=== PATIENT | female | born 1940 | race Two or more races ===

== ENCOUNTER 2016-10-10 12:59 | Inpatient (IN) | payer MEDICARE, MEDICAID ==
[~2016-10-10] VITALS: Ht 165.1 cm; Wt 45.4 kg
[~2016-10-10 12:59] MED LIST: ARMOUR THYROID30 MG ORAL; ARTIFICIAL TEAR15 ML BOTH EYES; ASPIRIN EC81 MG ORAL; ATIVAN1 MG ORAL; BISAC-EVAC10 MG RC; COLACE100 MG ORAL; CYCLOBENZAPRINE10 MG ORAL; FLEET ENEMA133 ML RECTAL; LACTULOSE20 GM/301 ORAL; MILK OF MA400 MG/51 ORAL; MIRALAX17 G2 ORAL; NEURONTIN800 MG ORAL; NITROGLYCERIN0.4 MG SL; OXYCODONE HCL5 M2 ORAL; PROZAC40 MG ORAL; SENNA8.6 M3 PO; SIMETHICONE80 MG ORAL; SOMA350 MG PO; VOLTAREN100 G1 TP
--- NOTE | 2016-10-10 14:54 | Diagnostic Imaging Report ---
Indication: Abdominal pain Technique: Supine view of the abdomen Comparison: Radiocommunications Technician image from abdomen CT dated 09/17/2014 Findings: There is a prominent gas-filled small bowel loop in the left upper quadrant. No dilated small or large bowel is demonstrated. Stool is seen throughout the colon. No unusual masses or calcifications. Impression: Left upper quadrant prominent small bowel loop, could represent area of focal ileus. Early small bowel obstruction not completely excludable but less likely
[2016-10-10 15:28] LABS: EOSINOPHILS % (AUTO) 0.2 % (0.0-3.0); LYMPHOCYTES % (AUTO) 29.3 % (20.0-45.0); MEAN CORPUSCULAR HEMOGLOBIN 33.9 PG (27.0-31.0); MEAN CORPUSCULAR HGB CONC 33.1 G/DL (32.0-36.0); MEAN CORPUSCULAR VOLUME 103 FL (80-99); MEAN PLATELET VOLUME 6.8 FL (6.5-10.1); MONOCYTES % (AUTO) 5.9 % (1.0-10.0); NEUTROPHILS % (AUTO) 63.7 % (45.0-75.0); PLATELET COUNT 269 K/UL (150-450); RED BLOOD COUNT 4.03 M/UL (4.20-5.40); WHITE BLOOD COUNT 4.2 K/UL (4.8-10.8)
[2016-10-10 15:36] LABS: APPEARANCE,URINE CLEAR; KETONES,URINE 1+ (NEGATIVE); LEUKOCYTE ESTERASE ,URINE 2+ (NEGATIVE); NITRITE,URINE NEGATIVE (NEGATIVE); PH,URINE 5 (4.5-8.0); PROTEIN,URINE 1+ (NEGATIVE); UROBILINOGEN,URINE 1 MG/DL (0.0-1.0)
[2016-10-10 15:40] LABS: PROTHROMBIN TIME 10.1 SEC (9.30-11.50)
[2016-10-10 15:44] LABS: ALANINE AMINOTRANSFERASE 14 U/L (3-33); ALBUMIN/GLOBULIN RATIO 1.1 (1.0-2.7); ANION GAP 11 (5-15); ASPARTATE AMINO TRANSFERASE 20 U/L (5-40); CALCIUM 9.1 mg/dL (8.6-10.2); CARBON DIOXIDE 26 mEQ/L (20-30); CHLORIDE 100 mEQ/L (98-107); CREATININE 0.8 mg/dL (0.5-0.9); HEMOLYSIS 7; LIPASE 24 U/L (< 60); SODIUM 137 mEQ/L (135-145); TOTAL PROTEIN 7.7 g/dL (6.6-8.7)
[2016-10-10 15:45] LABS: RBC,URINE 0-2 /HPF (0 - 2)
[2016-10-10 15:46] LABS: BACTERIA,URINE FEW /HPF; MUCUS,URINE MANY /LPF (NONE/OCC); SQUAMOUS EPITHELIAL CELL,UR FEW /LPF (NONE/OCC)
[2016-10-10] MEDS ORDERED: Morphine Sulfate 4mg/ml Inj IVP ONE (16:00)
[2016-10-10 17:11] VITALS: BP 113/62
[2016-10-10] MEDS ORDERED: Morphine Sulfate 2mg/ml Inj IVP PRN ×2 (18:00→18:15)
--- NOTE | 2016-10-10 18:04 | Emergency Room Report ---
History of Present Illness General Chief Complaint: Abdominal Pain Source: Patient Present Illness [facility] The patient is a 76-year-old female with a history of SBO, C. difficile, umbilical hernia, and bilateral inguinal hernias presenting for abdominal pain and diarrhea for the past 3 weeks. Symptoms have been on and off with no known provoking factors. Pain is 8/10 dull ache to the mid lower abdomen and does not radiate. The patient states that she had a colonoscopy one month prior which she does not know the results of. She denies other symptoms including nausea, vomiting, fever, chills, back pain, melena, hematochezia Allergies: Coded Allergies: ERYTHROMYCIN BASE (Unverified Allergy, Unknown, 09/17/14) Patient History Past Medical History: see triage record Pertinent Family History: none Last Menstrual Period: na Reviewed Nursing Documentation: PMH: Agreed, PSxH: Agreed Nursing Documentation-PMH Past Medical History: No History, Except For Hx Cancer: No Hx Gastrointestinal Problems: Yes - IBS Hx Neurological Problems: Yes Review of Systems All Other Systems: negative except mentioned in HPI Physical Exam Vital Signs Date Time Temp Pulse Resp B/P Pulse Ox O2 Delivery O2 Flow Rate FiO2 10/10/16 13:13 97.9 107 18 112/76 98 Room Air Sp02 EP Interpretation: reviewed, normal General Appearance: no apparent distress, alert, GCS 15, non-toxic Head: normocephalic, atraumatic Eyes: bilateral eye PERRL, bilateral eye normal inspection ENT: hearing grossly normal, normal pharynx, no angioedema, normal voice Neck: full range of motion, supple/symm/no masses Respiratory: chest non-tender, lungs clear, normal breath sounds, speaking full sentences Gastrointestinal: normal bowel sounds, soft, no guarding, no rebound, tenderness - TTP over the LLQ and suprapubic regions Genitourinary: normal inspection, no CVA tenderness Musculoskeletal: back normal, gait/station normal, normal range of motion, non- tender Neurologic: alert, oriented x3, responsive, motor strength/tone normal, sensory intact, speech normal Psychiatric: judgement/insight normal, memory normal, mood/affect normal, no suicidal/homicidal ideation Skin: normal color, no rash, warm/dry, well hydrated Medical Decision Making PA Attestation Dr. Hamilton is my supervising physician. Patient management was discussed with my supervising physician Diagnostic Impression: Primary Impression: Abdominal pain Qualified Codes: R10.9 - Unspecified abdominal pain ER Course The patient is a 76-year-old female presenting with abdominal pain Differential diagnoses considered include but not limited to gastritis, pancreatitis, appendicitis, UTI, diverticulitis, SBO, incarcerated hernia, among others Physical exam: Afebrile. No apparent distress There is tenderness to palpation over the suprapubic and left lower quadrant regions. Normal bowel sounds. No guarding. All lab work is unremarkable Abdominal x-ray shows signs consistent with ileus and possible SBO per radiologist The patient is given IV pain medications with improvement of pain. She will be admitted to telemetry unit due to past medical history and tachycardia. Dr. Hamilton has discussed case with admitting physician. Laboratory Tests Test 10/10/16 14:32 White Blood Count 4.2 K/UL (4.8-10.8) L Red Blood Count 4.03 M/UL (4.20-5.40) L Hemoglobin 13.7 G/DL (12.0-16.0) Hematocrit 41.3 % (37.0-47.0) Mean Corpuscular Volume 103 FL (80-99) H Mean Corpuscular Hemoglobin 33.9 PG (27.0-31.0) H Mean Corpuscular Hemoglobin Concent 33.1 G/DL (32.0-36.0) Red Cell Distribution Width 11.0 % (11.6-14.8) L Platelet Count 269 K/UL (150-450) Mean Platelet Volume 6.8 FL (6.5-10.1) Neutrophils (%) (Auto) 63.7 % (45.0-75.0) Lymphocytes (%) (Auto) 29.3 % (20.0-45.0) Monocytes (%) (Auto) 5.9 % (1.0-10.0) Eosinophils (%) (Auto) 0.2 % (0.0-3.0) Basophils (%) (Auto) 1.0 % (0.0-2.0) Prothrombin Time 10.1 SEC (9.30-11.50) Prothrombin Time INR 1.0 (0.9-1.1) PTT 26 SEC (23-33) Urine Color Yellow Urine Appearance Clear Urine pH 5 (4.5-8.0) Urine Specific [place] 1.020 (1.005-1.035) Urine Protein 1+ (NEGATIVE) H Urine Glucose (UA) Negative (NEGATIVE) Urine Ketones 1+ (NEGATIVE) H Urine Occult Blood Negative (NEGATIVE) Urine Nitrite Negative (NEGATIVE) Urine Bilirubin Negative (NEGATIVE) Urine Urobilinogen 1 MG/DL (0.0-1.0) H Urine Leukocyte Esterase 2+ (NEGATIVE) H Urine RBC 0-2 /HPF (0 - 2) Urine WBC 2-4 /HPF (0 - 2) Urine Squamous Epithelial Cells Few /LPF (NONE/OCC) Urine Bacteria Few /HPF (NONE) Urine Mucus Many /LPF (NONE/OCC) H Sodium Level 137 mEQ/L (135-145) Potassium Level 4.0 mEQ/L (3.4-4.9) Chloride Level 100 mEQ/L (98-107) Carbon Dioxide Level 26 mEQ/L (20-30) Anion Gap 11 (5-15) Blood Urea Nitrogen 14 mg/dL (7-23) Creatinine 0.8 mg/dL (0.5-0.9) Estimate Glomerular Filtration Rate mL/min (>60) Glucose Level 103 mg/dL (74-106) Calcium Level 9.1 mg/dL (8.6-10.2) Total Bilirubin 0.3 mg/dL (0.0-1.2) Aspartate Amino Transferase (AST) 20 U/L (5-40) Alanine Aminotransferase (ALT) 14 U/L (3-33) Alkaline Phosphatase 50 U/L (35-104) Total Protein 7.7 g/dL (6.6-8.7) Albumin 4.1 g/dL (3.5-5.2) Globulin 3.6 g/dL Albumin/Globulin Ratio 1.1 (1.0-2.7) Lipase 24 U/L (< 60) Lab Results Impression All unremarkable EKG Diagnostic Results EP Interpretation: No acute findings Rate: normal - 66 Rhythm: NSR ST Segments: no acute changes ASA given to the pt in ED: No PA Scribe Text EKG was reviewed and read with my supervising physician. No acute ST segment changes are seen. Normal rate and rhythm. No acute changes. Last Vital Signs Date Time Temp Pulse Resp B/P Pulse Ox O2 Delivery O2 Flow Rate FiO2 10/10/16 17:11 98.2 68 18 113/62 97 Room Air Status: improved Disposition: ADMITTED INPATIENT Condition: Stable Referrals: Balbir Truong MD (PCP) DOMINIK SHELDON Oct 10, 2016 18:04
--- NOTE | 2016-10-10 18:08 | Emergency Room Report ---
History of Present Illness General Chief Complaint: Abdominal Pain Source: Patient Present Illness HPI Patient's 76-year-old female who presented after increased abdominal pain. Patient reported having pain primarily to the left lower abdomen. She reported having intermittent worsening pain. The patient not been having vomiting. She reported intermittent diarrhea. Patient was noted to have prior history of end- stage renal disease Allergies: Coded Allergies: ERYTHROMYCIN BASE (Unverified Allergy, Unknown, 09/17/14) Patient History Past Medical History: see triage record Last Menstrual Period: na Reviewed Nursing Documentation: PMH: Agreed, PSxH: Agreed Nursing Documentation-PMH Past Medical History: No History, Except For Hx Cancer: No Hx Gastrointestinal Problems: Yes - IBS Hx Neurological Problems: Yes Review of Systems All Other Systems: negative except mentioned in HPI Physical Exam Vital Signs Date Time Temp Pulse Resp B/P Pulse Ox O2 Delivery O2 Flow Rate FiO2 10/10/16 13:13 97.9 107 18 112/76 98 Room Air Sp02 EP Interpretation: reviewed, normal General Appearance: normal inspection, alert, GCS 15, mild distress Head: atraumatic ENT: normal ENT inspection, hearing grossly normal, normal voice Neck: normal inspection, full range of motion, supple, no bony tend Respiratory: normal inspection, lungs clear, normal breath sounds, no respiratory distress, no retraction, no wheezing Cardiovascular #1: regular rate, rhythm, no edema Gastrointestinal: normal inspection, normal bowel sounds, non tender, soft, no guarding, hernia - nontender Genitourinary: no CVA tenderness Musculoskeletal: normal inspection, back normal, normal range of motion Neurologic: normal inspection, alert, oriented x3, responsive, brilliandeer lopper III-XII nml as tested, speech normal Psychiatric: normal inspection, judgement/insight normal, mood/affect normal Skin: normal inspection, normal color, no rash Medical Decision Making Diagnostic Impression: Primary Impression: Abdominal pain Additional Impression: Ileus ER Course Patient presented for abdominal pain. Differential diagnoses included ischemic bowel, appendicitis, perforated viscus, abdominal aortic aneurysm, inferior myocardial infarction, viral gastroenteritis Because of complexity of patient's case laboratory testing and imaging studies were ordered. Acute abdominal series interpreted by radiology showed small bowel ileus versus early obstruction. The patient was noted to have a mild ileus on imaging. I laboratory studies showed mild decrease in white blood count. Prior CT imaging was performed in 2014 showed a umbilical hernia as well as bilateral inguinal hernias. Dr. Balbir Truong was contacted for inpatient management due to primary care physician Labs Test 10/10/16 14:32 White Blood Count 4.2 K/UL (4.8-10.8) Red Blood Count 4.03 M/UL (4.20-5.40) Hemoglobin 13.7 G/DL (12.0-16.0) Hematocrit 41.3 % (37.0-47.0) Mean Corpuscular Volume 103 FL (80-99) Mean Corpuscular Hemoglobin 33.9 PG (27.0-31.0) Mean Corpuscular Hemoglobin Concent 33.1 G/DL (32.0-36.0) Red Cell Distribution Width 11.0 % (11.6-14.8) Platelet Count 269 K/UL (150-450) Mean Platelet Volume 6.8 FL (6.5-10.1) Neutrophils (%) (Auto) 63.7 % (45.0-75.0) Lymphocytes (%) (Auto) 29.3 % (20.0-45.0) Monocytes (%) (Auto) 5.9 % (1.0-10.0) Eosinophils (%) (Auto) 0.2 % (0.0-3.0) Basophils (%) (Auto) 1.0 % (0.0-2.0) Prothrombin Time 10.1 SEC (9.30-11.50) Prothromb Time International Ratio 1.0 (0.9-1.1) Activated Partial Thromboplast Time 26 SEC (23-33) Urine Color Yellow Urine Appearance Clear Urine pH 5 (4.5-8.0) Urine Specific [place] 1.020 (1.005-1.035) Urine Protein 1+ (NEGATIVE) Urine Glucose (UA) Negative (NEGATIVE) Urine Ketones 1+ (NEGATIVE) Urine Occult Blood Negative (NEGATIVE) Urine Nitrite Negative (NEGATIVE) Urine Bilirubin Negative (NEGATIVE) Urine Urobilinogen 1 MG/DL (0.0-1.0) Urine Leukocyte Esterase 2+ (NEGATIVE) Urine RBC 0-2 /HPF (0 - 2) Urine WBC 2-4 /HPF (0 - 2) Urine Squamous Epithelial Cells Few /LPF (NONE/OCC) Urine Bacteria Few /HPF (NONE) Urine Mucus Many /LPF (NONE/OCC) Sodium Level 137 mEQ/L (135-145) Potassium Level 4.0 mEQ/L (3.4-4.9) Chloride Level 100 mEQ/L (98-107) Carbon Dioxide Level 26 mEQ/L (20-30) Anion Gap 11 (5-15) Blood Urea Nitrogen 14 mg/dL (7-23) Creatinine 0.8 mg/dL (0.5-0.9) Estimat Glomerular Filtration Rate mL/min (>60) Glucose Level 103 mg/dL (74-106) Calcium Level 9.1 mg/dL (8.6-10.2) Total Bilirubin 0.3 mg/dL (0.0-1.2) Aspartate Amino Transf (AST/SGOT) 20 U/L (5-40) Alanine Aminotransferase (ALT/SGPT) 14 U/L (3-33) Alkaline Phosphatase 50 U/L (35-104) Total Protein 7.7 g/dL (6.6-8.7) Albumin 4.1 g/dL (3.5-5.2) Globulin 3.6 g/dL Albumin/Globulin Ratio 1.1 (1.0-2.7) Lipase 24 U/L (< 60) Last Vital Signs Date Time Temp Pulse Resp B/P Pulse Ox O2 Delivery O2 Flow Rate FiO2 10/10/16 17:11 98.2 68 18 113/62 97 Room Air Status: unchanged Disposition: ADMITTED INPATIENT Condition: Serious Referrals: Balbir Truong MD (PCP) Eliseo Hamilton Oct 10, 2016 18:08
--- NOTE | 2016-10-10 18:11 | Consultation ---
History of Present Illness General Chief Complaint: Abdominal Pain Present Illness Allergies: Coded Allergies: ERYTHROMYCIN BASE (Unverified Allergy, Unknown, 09/17/14) Medication History Scheduled Aspirin Ec* (Aspirin Ec*), 81 MG ORAL DAILY, (Reported) Bisacodyl (Bisac-Evac), 10 MG RC EVERY OTHER DAY, (Reported) Docusate Sodium* (Colace*), 100 MG ORAL TWICE A DAY, (Reported) Fluoxetine Hcl* (Prozac*), 60 MG ORAL DAILY, (Reported) Gabapentin* (Neurontin*), 800 MG ORAL Q8H, (Reported) Polyethylene Glycol 3350* (Miralax*), 17 GM ORAL HS, (Reported) Sennosides (Senna), 8.6 MG PO BEDTIME, (Reported) Thyroid* ([place] Thyroid*), 30 MG ORAL DAILY, (Reported) Scheduled PRN Bisacodyl (Bisac-Evac), 10 MG RC for Constipation, (Reported) Carisoprodol* (Soma*), 350 MG PO TID PRN for For Pain, (Reported) Cyclobenzaprine Hcl* (Flexeril*), 10 MG ORAL THREE TIMES A DAY PRN for Moderate Pain (Pain Scale 4-6), (Reported) Dextran 70/Hypromellose (Artificial Tears Eye Drops*), 1 DROP BOTH EYES EVERY 3 HOURS PRN for Dry Eyes, (Reported) Diclofenac Sodium (Voltaren), 100 GM TP QID PRN for For Pain, (Reported) Lactulose (Lactulose*), 30 ML ORAL BID PRN for Constipation, (Reported) Lorazepam* (Ativan*), 1 MG ORAL BEDTIME PRN for For Anxiety, (Reported) Magnesium Hydroxide* (Milk Of Magnesia*), 30 ML ORAL DAILY PRN for Constipation, (Reported) Na Phos,M-B/Na Phos,Di-Ba* (Fleet Enema*), 133 ML RECTAL EVERY 72 HOURS PRN for Constipation, (Reported) Nitroglycerin (Nitroglycerin), 0.4 MG SL for Prn Chest Pain, (Reported) Oxycodone Hcl* (Oxycodone Hcl*), 5 MG ORAL Q6H PRN for For Pain, (Reported) Simethicone* (Simethicone*), 80 MG ORAL FOUR TIMES A DAY PRN for Abdominal cramps, (Reported) Patient History Healthcare decision maker Resuscitation status Advanced Directive on File Physical Exam Last 24 Hour Vital Signs Date Time Temp Pulse Resp B/P Pulse Ox O2 Delivery O2 Flow Rate FiO2 10/10/16 17:11 98.2 68 18 113/62 97 Room Air 10/10/16 13:13 97.9 107 18 112/76 98 Room Air Laboratory Tests Test 10/10/16 14:32 White Blood Count 4.2 K/UL (4.8-10.8) L Red Blood Count 4.03 M/UL (4.20-5.40) L Hemoglobin 13.7 G/DL (12.0-16.0) Hematocrit 41.3 % (37.0-47.0) Mean Corpuscular Volume 103 FL (80-99) H Mean Corpuscular Hemoglobin 33.9 PG (27.0-31.0) H Mean Corpuscular Hemoglobin Concent 33.1 G/DL (32.0-36.0) Red Cell Distribution Width 11.0 % (11.6-14.8) L Platelet Count 269 K/UL (150-450) Mean Platelet Volume 6.8 FL (6.5-10.1) Neutrophils (%) (Auto) 63.7 % (45.0-75.0) Lymphocytes (%) (Auto) 29.3 % (20.0-45.0) Monocytes (%) (Auto) 5.9 % (1.0-10.0) Eosinophils (%) (Auto) 0.2 % (0.0-3.0) Basophils (%) (Auto) 1.0 % (0.0-2.0) Prothrombin Time 10.1 SEC (9.30-11.50) Prothromb Time International Ratio 1.0 (0.9-1.1) Activated Partial Thromboplast Time 26 SEC (23-33) Urine Color Yellow Urine Appearance Clear Urine pH 5 (4.5-8.0) Urine Specific [place] 1.020 (1.005-1.035) Urine Protein 1+ (NEGATIVE) H Urine Glucose (UA) Negative (NEGATIVE) Urine Ketones 1+ (NEGATIVE) H Urine Occult Blood Negative (NEGATIVE) Urine Nitrite Negative (NEGATIVE) Urine Bilirubin Negative (NEGATIVE) Urine Urobilinogen 1 MG/DL (0.0-1.0) H Urine Leukocyte Esterase 2+ (NEGATIVE) H Urine RBC 0-2 /HPF (0 - 2) Urine WBC 2-4 /HPF (0 - 2) Urine Squamous Epithelial Cells Few /LPF (NONE/OCC) Urine Bacteria Few /HPF (NONE) Urine Mucus Many /LPF (NONE/OCC) H Sodium Level 137 mEQ/L (135-145) Potassium Level 4.0 mEQ/L (3.4-4.9) Chloride Level 100 mEQ/L (98-107) Carbon Dioxide Level 26 mEQ/L (20-30) Anion Gap 11 (5-15) Blood Urea Nitrogen 14 mg/dL (7-23) Creatinine 0.8 mg/dL (0.5-0.9) Estimat Glomerular Filtration Rate mL/min (>60) Glucose Level 103 mg/dL (74-106) Calcium Level 9.1 mg/dL (8.6-10.2) Total Bilirubin 0.3 mg/dL (0.0-1.2) Aspartate Amino Transf (AST/SGOT) 20 U/L (5-40) Alanine Aminotransferase (ALT/SGPT) 14 U/L (3-33) Alkaline Phosphatase 50 U/L (35-104) Total Protein 7.7 g/dL (6.6-8.7) Albumin 4.1 g/dL (3.5-5.2) Globulin 3.6 g/dL Albumin/Globulin Ratio 1.1 (1.0-2.7) Lipase 24 U/L (< 60) Height (Feet): 5 Height (Inches): 2.00 Weight (Pounds): 100 Medications Current Medications Medications (Trade) Dose Ordered Sig/Joy Route PRN Reason Start Time Stop Time Status Last Admin Dose Admin Acetaminophen (Tylenol) 650 mg PRN PRN ORAL For Pain 10/10/16 18:00 11/09/16 17:59 UNV Acetaminophen (Tylenol) 650 mg Q4H PRN ORAL fever 10/10/16 18:15 11/09/16 18:14 UNV Al Hydroxide/Mg Hydroxide (Mylanta II) 30 ml Q6H PRN ORAL dyspepsia 10/10/16 18:15 11/09/16 18:14 UNV Aspirin (Ecotrin) 81 mg DAILY ORAL 10/11/16 09:00 11/10/16 08:59 UNV Carisoprodol (Soma) 350 mg TID PRN ORAL For Pain 10/10/16 18:15 11/09/16 18:14 UNV Dextrose STAT PRN IV Hypoglycemia 10/10/16 18:15 11/09/16 18:14 UNV Dextrose/Sodium Chloride (D5 0.45% NS) 1,000 ml @ 75 mls/hr [id number] IV 10/10/16 17:40 11/09/16 17:39 UNV Diphenhydramine HCl (Benadryl) 25 mg Q6H PRN ORAL Itching/Pruritis 10/10/16 18:15 11/09/16 18:14 UNV Fluoxetine HCl (PROzac) 60 mg DAILY ORAL 10/11/16 09:00 11/10/16 08:59 UNV Gabapentin (Neurontin) 800 mg Q8H ORAL 10/10/16 18:15 11/09/16 18:14 UNV Heparin Sodium (Porcine) (Heparin 5000 units/ml) 5,000 units EVERY 12 HOURS SUBQ 10/10/16 21:00 11/09/16 20:59 UNV Lorazepam (Ativan) 1 mg BEDTIME PRN ORAL For Anxiety 10/10/16 18:15 10/17/16 18:14 UNV Morphine Sulfate (Morphine Sulfate) 2 mg EVERY 4 HOURS PRN IVP severe Pain (Pain Scale 7-10) 10/10/16 18:15 10/17/16 18:14 UNV Morphine Sulfate (Morphine Sulfate) 2 mg PRN PRN IVP For Pain 10/10/16 18:00 10/17/16 17:59 UNV Nitroglycerin (Ntg) 0.4 mg Q5M X 3 DOSES PRN SL Prn Chest Pain 10/10/16 18:15 11/09/16 18:14 UNV Ondansetron HCl (Zofran) 4 mg Q6H PRN IVP Nausea & Vomiting 10/10/16 18:15 11/09/16 18:14 UNV Pantoprazole (Protonix) 40 mg DAILY IVP 10/11/16 09:00 11/10/16 08:59 UNV Piperacillin Sod/ Tazobactam Sod/ Sodium Chloride (Zosyn/Sodium Chloride) 110 ml @ 27.5 mls/hr EVERY 8 HOURS IVPB 10/10/16 22:00 10/17/16 21:59 UNV Polyethylene Glycol (Miralax) 17 gm HSPRN PRN ORAL Constipation 10/10/16 18:15 11/09/16 18:14 UNV Temazepam (Restoril) 15 mg HSPRN PRN ORAL Insomnia 10/10/16 18:15 10/17/16 18:14 UNV Thyroid 30 mg 30 mg DAILY ORAL 10/11/16 09:00 11/10/16 08:59 UNV MAUREEN ROJAS Oct 10, 2016 18:11
[2016-10-10] MEDS ORDERED: Mylanta II UD 30ml ORAL PRN (18:15)
[2016-10-10] MEDS ORDERED: Miralax 17gm pkt ORAL PRN (18:15)
[2016-10-10] MEDS ORDERED: Nitroglycerin Subl 0.4mg tab (Bottle Of 25) SL PRN (18:15)
[2016-10-10 19:40] VITALS: BP 118/70
[2016-10-10] MEDS: LORazepam 1mg tab ORAL PRN (19:47)
[2016-10-10 20:00] VITALS: BP 120/68
[2016-10-10 20:38] VITALS: BP 132/68
[2016-10-10] MEDS: D5 1/2NS 1,000 ML IV SCH (22:01)
[2016-10-10] MEDS: Piperacillin/Tazobactam 3.375 GM in NS 110 ML IVPB SCH (22:01)
[2016-10-10] MEDS: Heparin 5000 units/ml inj SUBQ SCH (22:06)
--- NOTE | 2016-10-10 22:45 | Consultation ---
DATE OF CONSULTATION: 10/10/2016 SURGICAL CONSULTATION REASON FOR ADMISSION: Abdominal pain, umbilical and inguinal hernias. HISTORY OF PRESENT ILLNESS: This is a 76-year-old 3, para 2, AB 1 female, presented with a two-day history of abdominal discomfort as well as decreased appetite. She had some nausea, but no vomiting. The patient has problems with intermittent constipation alternating with diarrhea. PAST MEDICAL HISTORY: Previous surgery is limited to a laparotomy many years ago for an ectopic . MEDICATIONS: Include soma 350 mg t.i.d. p.r.n. pain, Flexeril 10 mg three times a day p.r.n. moderate pain, Voltaren 100 mg, lactulose 30 mL b.i.d. p.r.n. constipation, lorazepam 1 mg at bedtime for anxiety, and nitroglycerin 0.4 mg sublingual p.r.n. chest pain. The patient is also taking aspirin 81 mg daily, Prozac 60 mg daily, Neurontin 800 mg q.8 hours, and [place] Thyroid 30 mg daily. ALLERGIES: Erythromycin. SOCIAL HISTORY: Tobacco, none. Alcohol, none. 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 FAMILY HISTORY: Positive for diabetes and hypertension. REVIEW OF SYSTEMS: Includes occasional headaches. There is no history of asthma. She denies any problems with chest pain. There is no history of recent weight loss. PHYSICAL EXAMINATION: GENERAL: Reveals a slim female, in no acute distress. VITAL SIGNS: Temperature 98.2 degrees, blood pressure 113/62, pulse 68, and respirations 18. HEENT: Normocephalic. Pupils are equal and reactive to light. There was no scleral icterus. NECK: Supple without adenopathy. LUNGS: Clear. HEART: Showed a regular rhythm. ABDOMEN: Abdomen was flat and soft. There was some umbilical discomfort from a partially reducible umbilical hernia. The inguinal exam shows small reducible inguinal hernias bilaterally. There were no femoral hernias. EXTREMITIES: Showed no clubbing, cyanosis, or edema. Peripheral pulses are intact. LABORATORY DATA: CBC showed a white blood count of 4200, hemoglobin 13.7 grams percent, hematocrit 41.3%, and platelet count 269,000. Clinical chemistry showed a sodium of 137, potassium 4.0, chloride 100, bicarbonate 26, BUN 14, creatinine 0.8, and glucose 103. Total bilirubin 0.3. SGOT 14, SGPT 20, and alkaline phosphatase 50. Lipase normal at 24. Abdominal x-ray showed prominent gas-filled small bowel loops in the left upper quadrant. There was no dilated small or large bowel. Stool was seen throughout the colon. There were no unusual masses or calcifications. The x-ray impression was possible focal ileus. IMPRESSION: Reducible bilateral inguinal hernias, partially reducible umbilical hernia, no evidence of intestinal obstruction. PLAN: There is no indication for surgery at this time. She will probably be admitted for observation and intravenous hydration. Nasir Downey M.D. DR: GEORGINA JOB#: [id number] CC:
[2016-10-10 23:57] VITALS: BP 119/74
[2016-10-11 03:54] VITALS: BP 115/73
[2016-10-11] MEDS: Piperacillin/Tazobactam 3.375 GM in NS 110 ML IVPB SCH ×2 (06:56→13:52)
[2016-10-11 07:21] LABS: BASOPHILS % (AUTO) 1.7 % (0.0-2.0); EOSINOPHILS % (AUTO) 1.1 % (0.0-3.0); LYMPHOCYTES % (AUTO) 39.9 % (20.0-45.0); MEAN CORPUSCULAR HEMOGLOBIN 33.1 PG (27.0-31.0); MEAN CORPUSCULAR HGB CONC 32.1 G/DL (32.0-36.0); MEAN CORPUSCULAR VOLUME 103 FL (80-99); MEAN PLATELET VOLUME 6.7 FL (6.5-10.1); MONOCYTES % (AUTO) 7.6 % (1.0-10.0); NEUTROPHILS % (AUTO) 49.7 % (45.0-75.0); PLATELET COUNT 224 K/UL (150-450); RED BLOOD COUNT 3.59 M/UL (4.20-5.40); RED CELL DISTRIBUTION WIDTH 11.2 % (11.6-14.8); WHITE BLOOD COUNT 4.5 K/UL (4.8-10.8)
[2016-10-11 07:40] LABS: ALANINE AMINOTRANSFERASE 10 U/L (3-33); ALBUMIN/GLOBULIN RATIO 1.1 (1.0-2.7); AMYLASE 108 U/L (10-110); ANION GAP 7 (5-15); ASPARTATE AMINO TRANSFERASE 15 U/L (5-40); CALCIUM 8.5 mg/dL (8.6-10.2); CARBON DIOXIDE 29 mEQ/L (20-30); CHLORIDE 105 mEQ/L (98-107); CREATININE 0.8 mg/dL (0.5-0.9); HEMOLYSIS 7; LIPASE 34 U/L (< 60); POTASSIUM 4.3 mEQ/L (3.4-4.9); SODIUM 141 mEQ/L (135-145); TOTAL PROTEIN 6.5 g/dL (6.6-8.7)
--- NOTE | 2016-10-11 07:52 | Consultation ---
History of Present Illness General Date patient seen: Oct 11, 2016 Time patient seen: 06:30 Chief Complaint: Abdominal Pain Referring physician: dr Truong Reason for Consultation: inpatient management Present Illness HPI 76 y/old female admitted with 5 days of generalized abdominal pain, anorexia, and nausea w/o emesis. Workup in ED revealed no leukocytosis, stable HH VSS stable lytes and renal parameters abdominal X ray revealed findings consistent with focal ileus but early small bowel obstruction could not be completely excludable patient was admitted for further management currently patient denies chest pain, SOB patient reports intermittent abdominal pain, no n/v/ denies fevers chills denies blood in stool PAST MEDICAL HISTORY: CAD s/p PA fibromyalgia/RSD uterine fibroids IBS hypothyroidism anemia MDD h/o TBI Past Surgical History: Laparotomy many years ago for ectopic Allergies: Coded Allergies: ERYTHROMYCIN BASE (Unverified Allergy, Unknown, 09/17/14) Medication History Scheduled Aspirin Ec* (Aspirin Ec*), 81 MG ORAL DAILY, (Reported) Bisacodyl (Bisac-Evac), 10 MG RC EVERY OTHER DAY, (Reported) Docusate Sodium* (Colace*), 100 MG ORAL TWICE A DAY, (Reported) Fluoxetine Hcl* (Prozac*), 60 MG ORAL DAILY, (Reported) Gabapentin* (Neurontin*), 800 MG ORAL Q8H, (Reported) Polyethylene Glycol 3350* (Miralax*), 17 GM ORAL HS, (Reported) Sennosides (Senna), 8.6 MG PO BEDTIME, (Reported) Thyroid* ([place] Thyroid*), 30 MG ORAL DAILY, (Reported) Scheduled PRN Bisacodyl (Bisac-Evac), 10 MG RC for Constipation, (Reported) Carisoprodol* (Soma*), 350 MG PO TID PRN for For Pain, (Reported) Cyclobenzaprine Hcl* (Flexeril*), 10 MG ORAL THREE TIMES A DAY PRN for Moderate Pain (Pain Scale 4-6), (Reported) Dextran 70/Hypromellose (Artificial Tears Eye Drops*), 1 DROP BOTH EYES EVERY 3 HOURS PRN for Dry Eyes, (Reported) Diclofenac Sodium (Voltaren), 100 GM TP QID PRN for For Pain, (Reported) Lactulose (Lactulose*), 30 ML ORAL BID PRN for Constipation, (Reported) Lorazepam* (Ativan*), 1 MG ORAL BEDTIME PRN for For Anxiety, (Reported) Magnesium Hydroxide* (Milk Of Magnesia*), 30 ML ORAL DAILY PRN for Constipation, (Reported) Na Phos,M-B/Na Phos,Di-Ba* (Fleet Enema*), 133 ML RECTAL EVERY 72 HOURS PRN for Constipation, (Reported) Nitroglycerin (Nitroglycerin), 0.4 MG SL for Prn Chest Pain, (Reported) Oxycodone Hcl* (Oxycodone Hcl*), 5 MG ORAL Q6H PRN for For Pain, (Reported) Simethicone* (Simethicone*), 80 MG ORAL FOUR TIMES A DAY PRN for Abdominal cramps, (Reported) Patient History Healthcare decision maker Resuscitation status Advanced Directive on File Review of Systems Constitutional: Reports: weakness Eye: Reports: no symptoms ENT: Reports: no symptoms Respiratory: Reports: no symptoms Cardiovascular: Reports: other - CAD Gastrointestinal: Reports: other - IBS, see HPI Genitourinary: Reports: other - fibroids Musculoskeletal: Reports: other - fibromyalgia Skin: Reports: no symptoms Psychiatric: Reports: other - MDD Neurological: Reports: other - hx of TBI Endocrine: Reports: no symptoms Hematologic/Lymphatic: Reports: anemia Physical Exam General Appearance: no apparent distress Lines, tubes and drains: peripheral HEENT: normocephalic, atraumatic, anicteric Neck: non-tender, supple Respiratory/Chest: chest wall non-tender, lungs clear - SR on tele Cardiovascular/Chest: normal rate, regular rhythm Abdomen: non tender, soft, hypoactive bowel sounds Extremities: non-tender, no calf tenderness Skin Exam: normal pigmentation, warm/dry Neurologic: alert, responsive Musculoskeletal: normal muscle bulk Last 24 Hour Vital Signs Date Time Temp Pulse Resp B/P Pulse Ox O2 Delivery O2 Flow Rate FiO2 10/11/16 04:00 58 10/11/16 03:54 98.3 71 18 115/73 98 Room Air 10/11/16 00:00 62 10/10/16 23:57 98.5 64 19 119/74 96 Room Air 10/10/16 20:38 96.6 65 18 132/68 94 Room Air 10/10/16 20:36 64 10/10/16 20:15 98.4 69 19 120/68 99 Room Air 10/10/16 20:00 98.4 69 19 120/68 99 Room Air 10/10/16 19:40 67 17 118/70 100 Room Air 10/10/16 19:30 96.6 10/10/16 17:11 98.2 68 18 113/62 97 Room Air 10/10/16 13:13 97.9 107 18 112/76 98 Room Air Intake and Output 10/10/16 10/11/16 19:00 07:00 Intake Total 0 ml 1000 ml Balance 0 ml 1000 ml Intake Oral 0 ml IV Total 1000 ml # Voids 1 1 # Bowel Movements 2 Laboratory Tests Test 10/10/16 14:32 10/11/16 06:25 White Blood Count 4.2 K/UL (4.8-10.8) L 4.5 K/UL (4.8-10.8) L Red Blood Count 4.03 M/UL (4.20-5.40) L 3.59 M/UL (4.20-5.40) L Hemoglobin 13.7 G/DL (12.0-16.0) 11.9 G/DL (12.0-16.0) L Hematocrit 41.3 % (37.0-47.0) 37.1 % (37.0-47.0) Mean Corpuscular Volume 103 FL (80-99) H 103 FL (80-99) H Mean Corpuscular Hemoglobin 33.9 PG (27.0-31.0) H 33.1 PG (27.0-31.0) H Mean Corpuscular Hemoglobin Concent 33.1 G/DL (32.0-36.0) 32.1 G/DL (32.0-36.0) Red Cell Distribution Width 11.0 % (11.6-14.8) L 11.2 % (11.6-14.8) L Platelet Count 269 K/UL (150-450) 224 K/UL (150-450) Mean Platelet Volume 6.8 FL (6.5-10.1) 6.7 FL (6.5-10.1) Neutrophils (%) (Auto) 63.7 % (45.0-75.0) 49.7 % (45.0-75.0) Lymphocytes (%) (Auto) 29.3 % (20.0-45.0) 39.9 % (20.0-45.0) Monocytes (%) (Auto) 5.9 % (1.0-10.0) 7.6 % (1.0-10.0) Eosinophils (%) (Auto) 0.2 % (0.0-3.0) 1.1 % (0.0-3.0) Basophils (%) (Auto) 1.0 % (0.0-2.0) 1.7 % (0.0-2.0) Prothrombin Time 10.1 SEC (9.30-11.50) Prothromb Time International Ratio 1.0 (0.9-1.1) Activated Partial Thromboplast Time 26 SEC (23-33) Pending Urine Color Yellow Urine Appearance Clear Urine pH 5 (4.5-8.0) Urine Specific [place] 1.020 (1.005-1.035) Urine Protein 1+ (NEGATIVE) H Urine Glucose (UA) Negative (NEGATIVE) Urine Ketones 1+ (NEGATIVE) H Urine Occult Blood Negative (NEGATIVE) Urine Nitrite Negative (NEGATIVE) Urine Bilirubin Negative (NEGATIVE) Urine Urobilinogen 1 MG/DL (0.0-1.0) H Urine Leukocyte Esterase 2+ (NEGATIVE) H Urine RBC 0-2 /HPF (0 - 2) Urine WBC 2-4 /HPF (0 - 2) Urine Squamous Epithelial Cells Few /LPF (NONE/OCC) Urine Bacteria Few /HPF (NONE) Urine Mucus Many /LPF (NONE/OCC) H Sodium Level 137 mEQ/L (135-145) 141 mEQ/L (135-145) Potassium Level 4.0 mEQ/L (3.4-4.9) 4.3 mEQ/L (3.4-4.9) Chloride Level 100 mEQ/L (98-107) 105 mEQ/L (98-107) Carbon Dioxide Level 26 mEQ/L (20-30) 29 mEQ/L (20-30) Anion Gap 11 (5-15) 7 (5-15) Blood Urea Nitrogen 14 mg/dL (7-23) 10 mg/dL (7-23) Creatinine 0.8 mg/dL (0.5-0.9) 0.8 mg/dL (0.5-0.9) Estimat Glomerular Filtration Rate mL/min (>60) mL/min (>60) Glucose Level 103 mg/dL (74-106) 110 mg/dL (74-106) H Calcium Level 9.1 mg/dL (8.6-10.2) 8.5 mg/dL (8.6-10.2) L Total Bilirubin 0.3 mg/dL (0.0-1.2) 0.3 mg/dL (0.0-1.2) Aspartate Amino Transf (AST/SGOT) 20 U/L (5-40) 15 U/L (5-40) Alanine Aminotransferase (ALT/SGPT) 14 U/L (3-33) 10 U/L (3-33) Alkaline Phosphatase 50 U/L (35-104) 44 U/L (35-104) Total Protein 7.7 g/dL (6.6-8.7) 6.5 g/dL (6.6-8.7) L Albumin 4.1 g/dL (3.5-5.2) 3.5 g/dL (3.5-5.2) Globulin 3.6 g/dL 3.0 g/dL Albumin/Globulin Ratio 1.1 (1.0-2.7) 1.1 (1.0-2.7) Lipase 24 U/L (< 60) 34 U/L (< 60) Amylase Level 108 U/L (10-110) Height (Feet): 5 Height (Inches): 2.00 Weight (Pounds): 100 Medications Current Medications Medications (Trade) Dose Ordered Sig/Joy Route PRN Reason Start Time Stop Time Status Last Admin Dose Admin Acetaminophen (Tylenol) 650 mg PRN PRN ORAL For Mild Pain 10/10/16 18:00 11/09/16 17:59 Acetaminophen (Tylenol) 650 mg Q4H PRN ORAL fever 10/10/16 18:15 11/09/16 18:14 Al Hydroxide/Mg Hydroxide (Mylanta II) 30 ml Q6H PRN ORAL dyspepsia 10/10/16 18:15 11/09/16 18:14 Aspirin (Ecotrin) 81 mg DAILY ORAL 10/11/16 09:00 11/10/16 08:59 Carisoprodol (Soma) 350 mg TIDPRN PRN ORAL MUSCLE SPASM 10/10/16 18:15 11/09/16 18:14 Dextrose STAT PRN IV Hypoglycemia 10/10/16 18:15 11/09/16 18:14 Dextrose/Sodium Chloride (D5 0.45% NS) 1,000 ml @ 75 mls/hr [id number] IV 10/10/16 19:00 11/09/16 18:59 10/10/16 22:01 Diphenhydramine HCl (Benadryl) 25 mg Q6H PRN ORAL Itching/Pruritis 10/10/16 18:15 11/09/16 18:14 Fluoxetine HCl (PROzac) 60 mg DAILY ORAL 10/11/16 09:00 11/10/16 08:59 Gabapentin (Neurontin) 800 mg Q8HR ORAL 10/10/16 22:00 11/09/16 21:59 Heparin Sodium (Porcine) (Heparin 5000 units/ml) 5,000 units EVERY 12 HOURS SUBQ 10/10/16 21:00 11/09/16 20:59 10/10/16 22:06 Lorazepam (Ativan) 1 mg HSPRN PRN ORAL For Anxiety 10/10/16 18:15 10/17/16 18:14 10/10/16 19:47 Morphine Sulfate (Morphine Sulfate) 2 mg Q4H PRN IVP severe Pain (Pain Scale 7-10) 10/10/16 18:15 10/17/16 18:14 Nitroglycerin (Ntg) 0.4 mg Q5M X 3 DOSES PRN SL Prn Chest Pain 10/10/16 18:15 11/09/16 18:14 Ondansetron HCl (Zofran) 4 mg Q6H PRN IVP Nausea & Vomiting 10/10/16 18:15 11/09/16 18:14 Pantoprazole (Protonix) 40 mg DAILY IVP 10/11/16 09:00 11/10/16 08:59 Piperacillin Sod/ Tazobactam Sod/ Sodium Chloride (Zosyn/Sodium Chloride) 110 ml @ 27.5 mls/hr EVERY 8 HOURS IVPB 10/10/16 20:00 10/17/16 19:59 10/11/16 06:56 Polyethylene Glycol (Miralax) 17 gm HSPRN PRN ORAL Constipation 10/10/16 18:15 11/09/16 18:14 Temazepam (Restoril) 15 mg HSPRN PRN ORAL Insomnia 10/10/16 18:15 10/17/16 18:14 Thyroid 30 mg 30 mg ACBREAKFAST ORAL 10/11/16 06:30 11/10/16 06:29 10/11/16 06:56 Assessment/Plan Assessment/Plan ASSESSMENT abdominal pain possible ileus possible UTI mild dehydration reducible bilateral inguinal hernias, partially reducible umbilical hernia, hx of PA fibromyalgia hypothyroidism with elevated TSH hx of IBS PLAN OF CARE tele IVF NPO x meds abdominal X ray with possible focal ileus surgery eval noted, no surgical intervention at this time; noted r educible bilateral inguinal hernias, partially reducible umbilical hernia, no evidence of intestinal obstruction surgery signed off the case abx, fup with urine cx ID follows CT A/P pain management elevated TSH, increase [place] Thyroid dose slightly DVT/GI prophylaxis a/emetic prn bowel regimen transfer to [place] case discussed and evaluated by supervising physician Gracie Bull NP ([place]) Oct 11, 2016 07:52
[2016-10-11] MEDS: D5 1/2NS 1,000 ML IV SCH ×3 (08:20→23:00)
[2016-10-11] MEDS ORDERED: Pantoprazole Inj IVP SCH (09:00)
[2016-10-11] MEDS ORDERED: Aspirin EC 81mg tab ORAL SCH (09:00)
[2016-10-11] MEDS: Heparin 5000 units/ml inj SUBQ SCH ×2 (09:42→21:58)
--- NOTE | 2016-10-11 11:31 | General Progress Note ---
Progress Note Progress Note Afebrile. Pt denies N or V. Abdomen is soft. No problems noted with umbilical or inguinal hernias; no surgical issues at this time. We will sign off the case. Nasir Downey MD Oct 11, 2016 11:31
--- NOTE | 2016-10-11 14:51 | History & Physical ---
History and Physical History & Physicial Dictated for Int med-Dr Truong no. [id number]. JOSE BUTLER Oct 11, 2016 14:51
[2016-10-11 16:00] VITALS: BP 115/76
--- NOTE | 2016-10-11 16:01 | Infectious Diseases Prog Note ---
Infectious Disease Consult Infectious Disease Consult Infectious Disease Consult INFECTIOUS DISEASE CONSULTATION DATE OF CONSULTATION: [id number] CONSULTING PHYSICIAN: David Dixon M.D., MTM&H, CTropMed Covering for Dr. Navarrete REFERRING PHYSICIAN: Dr Jones/Alexi REASON FOR CONSULTATION: abdominal pain x1 week HISTORY OF PRESENT ILLNESS: 76 y/o AAF, , remote h/o ectopic , h/ o IBS, reported h/o diverticulitis, admitted with 5 days of generalized abdominal pain, anorexia, and nausea w/o emesis. reports h/o possible IBS, s/p recent w/u one month ago at [facility], and patient reports h/o diverticulitis but cannot recall last severe flare. denies h/o IBD. recent symptoms associated with 5 watery bowel movements per day, non bloody, and she has a h/o constipation. denies any f/c, h/a, visual complaints , cough, sore throat, rash, neck pain, back/flank pain, or dysuria or foul smelling urine. no recent abx use. reports h/o rash to erythromycin. long- term h/o intermittent constipation alternating with diarrhea. not known to h/ o PUD, not on PPI at home. reports weight is low but stable over the past several months. pain not associated with meals. AAS w/o perhaps some ileus vs early SBO but not conclusive. started empirically on IV zosyn on admission for possible UTI. subsequent U/A with some leukocyte esterase but no pyuria, and urine cx has not yet been sent. PAST MEDICAL HISTORY: CAD s/p MN fibromyalgia/RSD uterine fibroids IBS hypothyroidism on armor thyroid anemia LLOYD MDD h/o TBI Past Surgical History: Laparotomy many years ago for ectopic ANTIBIOTICS: Home and hospitalized medications reviewed. Current Abx: zosyn 3.375gm IV q8hr (extended infusion) started 10oct2016 Home meds: soma 350 mg t.i.d. p.r.n. pain, Flexeril 10 mg three times a day p.r.n. moderate pain, Voltaren 100 mg, lactulose 30 mL b.i.d. p.r.n. constipation, lorazepam 1 mg at bedtime for anxiety, and nitroglycerin 0.4 mg sublingual p.r.n. chest pain. The patient is also taking aspirin 81 mg daily, Prozac 60 mg daily, Neurontin 800 mg q.8 hours, and [place] Thyroid 30 mg daily. ALLERGIES: Erythromycin. SOCIAL HISTORY: Tobacco, none. Alcohol, none. 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 FAMILY HISTORY: Positive for diabetes and hypertension. SOCIAL HISTORY: lives at home alone with service dog. non smoker. no etoh use. REVIEW OF SYSTEMS: 11 point ROS negative except for that mentioned in HPI above. PHYSICAL EXAM: VITAL SIGNS: Tm 98.5F bp 115/73 hr 71 rr 12 98% RA GEN: awake, alert, non toxic appearing, thin HEENT: Mild pale conjunctiva. oral mucosa dry, pharynx w/o exudate or effusion. No icterus. Head normocephalic, neck supple. NECK: No cervical LAD CHEST: Clear to auscultation bilaterally. HEART: S1 and S2, no murmurs, no rubs. ABDOMEN: soft, non tender, non distended, normoactive bowel sounds. no epigastric mass palpated. umbilical abd hernia, not tender, reducible. EXTREMITIES: No cyanosis, no clubbing, no edema. NEUROLOGIC: Awake, alert, no focal neurologic motor deficits. : wnl LYMPH: no LAD RECTAL: deferred LABORATORY AND DIAGNOSTIC DATA: WBC 4.5, N 49.7%, hgb 11.9, mcv 103, plt 224 Na 141, k 4.3, Cl 105, CO2 29, BUn 10, SCr 0.8, gluc 110, ca 8.5, t bili 0.3, ast 15, alt 10, alk phos 44, prot 6.5, alb 3.5, amylase 108, lipase 34, TSH 7.9 coags WNL u/a 1.020/1+ protein/1+ ketones/neg blood/neg nit/2+ LE/2-4 WBC/0-2 RBC/few bacteria ucx not yet sent RADIOLOGY: AAS: Procedure: XRAY Abdomen 1v Indication: Abdominal pain Technique: Supine view of the abdomen Comparison: [employer] image from abdomen CT dated 09/17/2014 Findings: There is a prominent gas-filled small bowel loop in the left upper quadrant. No dilated small or large bowel is demonstrated. Stool is seen throughout the colon. No unusual masses or calcifications. Impression: Left upper quadrant prominent small bowel loop, could represent area of focal ileus. Early small bowel obstruction not completely excludable but less likely ASSESSMENT AND PLAN ASSESSMENT: 1) probable diverticulitis flare 2) uncomplicated UTI unlikely w/o pyuria on u/a, currently on zosyn d#2 empirically 3) no h/o MDR GNR pathogens 4) mild dehydration 5) afebrile, no leukocytosis, exam reassuring 6) normal lipase, nl LFTs, no metabolic derangements macrocytosis, anemia hypothyroid, subtherapeutic on armour thyroid h/o IBS borderline leukopenia, probably chronic and normal variant PLAN: -d/c zosyn -start IV cipro 400mg IV q12hr and flagyl 500mg IV q8hr for possible diverticulitis -LDH, H pylori serology -GI evaluation in process -CT a/p with contrast to r/o diverticulitis flare -urine culture Thank you for this consultation. Will continue to follow. Covering for Dr. Navarrete, please call me with questions, David Dixon M.D. Oct 11, 2016 16:01
[2016-10-11] MEDS ORDERED: DuoNeb 0.5-3(2.5)mg/3ml neb HHN SCH (16:15)
[2016-10-11] MEDS: LORazepam 1mg tab ORAL PRN (17:04)
--- NOTE | 2016-10-11 17:45 | History and Physical Report ---
DATE OF ADMISSION: 10/10/2016 CHIEF COMPLAINT: The patient is a 76-year-old female, who presents with chief complaint of abdominal pain and diarrhea that began four days prior to admission. HISTORY OF PRESENT ILLNESS: The patient began to experience epigastric pain. The pain then radiated to the bilateral lower quadrants. The patient also complained of diarrhea. Diarrhea was watery in nature. The patient had several bowel movements daily. The patient complains of nausea without vomiting. The patient denies fevers or chills. The patient states she has had a 20-pound weight loss over the last 7 months. The patient presented to [place] emergency room. The patient was admitted for abdominal pain and watery diarrhea to rule out colitis versus acute infectious diarrhea. REVIEW OF SYSTEMS: Constitutional: The patient complains of 20-pound weight loss in last seven months. The patient denies fevers or chills. HEENT: The patient denies ear or throat pain. The patient denies headache. Cardiovascular: The patient denies palpitations or chest pain. Chest: The patient denies wheezes or shortness of breath. Abdomen: The patient complains of abdominal pain and diarrhea as above. The patient also complains of decreased p.o. intake. The patient complains of nausea without vomiting. The patient denies constipation. Genitourinary: The patient denies dysuria or increased frequency urination. Neuromuscular: The patient denies seizures or generalized weakness. PAST MEDICAL HISTORY: Significant for 1. Reflex sympathetic dystrophy. 2. Fibromyalgia. 3. Irritable bowel syndrome. 4. Degenerative disk disease of the cervical spine. PAST SURGICAL HISTORY: Significant for, 1. section x1. 2. Ectopic . CURRENT MEDICATIONS: 1. Enteric-coated aspirin 81 mg one tablet p.o. daily. 2. Soma 350 mg one tablet p.o. 3 times daily as needed. 3. Flexeril 10 mg one tablet p.o. 3 times daily as needed. 4. Voltaren 100 g gel applied topically 4 times daily. 5. Colace 100 mg one tablet p.o. twice daily. 6. Prozac 60 mg one tablet p.o. daily. 7. Neurontin 600 mg one tablet p.o. 3 times daily. 8. Lactulose 30 mL p.o. twice daily. 9. Ativan 1 mg one tablet p.o. nightly. 10. Milk of magnesia 30 mL p.o. daily. 11. Nitroglycerin 0.4 mg sublingual as needed. 12. Oxycodone 5 mg p.o. q.6 hours as needed. 13. MiraLax 17 g p.o. nightly. 14. Senna one tablet p.o. nightly. 15. [place] Thyroid 30 mg p.o. daily. ALLERGIES: To erythromycin. SOCIAL HISTORY: The patient is single. The patient denies tobacco or alcohol use. The patient is disabled. PHYSICAL EXAMINATION: GENERAL: The patient is a thin-appearing female, in no apparent distress. VITAL SIGNS: Temperature 96.6 degrees, respirations 18, pulse 65, and blood pressure 132/68. HEENT: Eyes, pupils are equal and responsive to light and accommodation. Extraocular movements are intact. NECK: Supple without lymphadenopathy. CHEST: Lungs are clear to auscultation bilaterally without wheezes or rales. CARDIOVASCULAR: Regular rhythm and rate. S1 and S2 normal without murmurs, rubs, or gallops. ABDOMEN: Soft, nontender, and nondistended. Positive bowel sounds. No evidence of hepatosplenomegaly. Currently, no rebound or guarding noted. There is tenderness to palpation in the epigastric region. There is no rebound or guarding. RECTAL/GENITAL: Refused. NEUROLOGIC: Cranial Nerves II through XII are grossly intact without focal deficits. Motor strength is 5/5 bilaterally. Deep tendon reflexes 2+ plantar. LABORATORY STUDIES: WBC is 4.2, hemoglobin 13.7, hematocrit 41.3, and platelets 269,000. Sodium 137, potassium 4.0, chloride 100, CO2 26, BUN 14, creatinine 0.8, and glucose 103. TSH elevated at 7.9. ASSESSMENT: This is a 76-year-old female, 1. Epigastric pain. 2. Diarrhea. 3. Nausea without vomiting. 4. Reflex sympathetic dystrophy. 5. Fibromyalgia. 6. Irritable bowel syndrome. 7. Degenerative disk disease of cervical spine. TREATMENT: 1. Epigastric pain/diarrhea/nausea. The patient underwent an endoscopy on 08/02/[address] Meet Wheatley. The results are in the chart. A gastroenterology consultation was obtained by Dr. Aramis Green. A stool has been sent for stool culture and Clostridium difficile. 2. Reflex sympathetic dystrophy. The patient is currently receiving intravenous morphine. 3. Hypothyroidism. Continue [place] Thyroid as above. 4. Fibromyalgia. 5. Irritable bowel syndrome. Gastroenterology consultation was obtained by Dr. Aramis Green. 6. Degenerative disk disease of cervical spine. Sukhdev Edwards M.D. DR: OSMEL JOB#: [id number] CC:
[2016-10-11] MEDS ORDERED: metroNIDAZOLE 500mg 100 ML IVPB SCH (18:00)
[2016-10-11 20:00] VITALS: BP 106/61
--- NOTE | 2016-10-11 20:00 | Consultation ---
DATE OF CONSULTATION: 10/11/2016 CHIEF COMPLAINT: Nausea, vomiting, and abdominal pain. HISTORY OF PRESENT ILLNESS: This is a 76-year-old female with past history of abdominal pain and weight loss. According to her, she lost about 25 pounds. She was seen at [facility] month of July 2016. She had an endoscopy and colonoscopy by another cotton sampler, which were nondiagnostic. Last endoscopy showed gastric polyp and gastritis. Colonoscopy showed hyperplastic polyps and diverticulosis. CT of the abdomen and pelvis and abdominal ultrasound was done, which showed mildly dilated right intrahepatic duct. There was no other findings. The patient apparently was supposed to get followup with a [facility] at [facility], but never got followup. PAST MEDICAL HISTORY: 1. Weight loss. 2. Diverticulosis. 3. Gastritis. 4. Gastric polyp. 5. Colonic polyp. 6. Fibromyalgia. 7. IBS. 8. Uterine fibroids. 9. Hypothyroidism. PAST SURGICAL HISTORY: None. ALLERGY: To erythromycin. MEDICATIONS: Please see medication reconciliation list. SOCIAL HISTORY: The patient denies any tobacco, alcohol, or drug abuse. FAMILY HISTORY: Noncontributory. REVIEW OF SYSTEMS: A 10-point systems performed and pertinent positives in the history of present illness. PHYSICAL EXAMINATION: VITAL SIGNS: Temperature 98.3 degrees, pulse 71, respiration 18, and blood pressure 116/78. HEENT: Normocephalic and atraumatic. Sclerae anicteric. NECK: Supple. No lymphadenopathy. CARDIOVASCULAR: Regular rate and rhythm. Plus S1 and S2. LUNGS: Decreased breath sounds bilaterally. ABDOMEN: Soft. Nontender to palpation in the epigastric area. No rebound. No guarding. No peritoneal sign. EXTREMITIES: No cyanosis, no clubbing, and no edema. LABORATORY DATA: White count is 12.5, hemoglobin 11.9, hematocrit 37, and platelet count 224,000. Liver function grossly normal. ASSESSMENT AND PLAN: The patient is a 76-year-old female with abdominal pain and epigastric pain. Recent workup at [facility]. PLAN: Given that the dilated right intrahepatic duct, we are going to order an MRCP. Order [id number]. Order CEA. Repeat liver function tests for tomorrow. Depending on what the MRCP findings, the patient might benefit from EUS for evaluation of weight loss and abdominal pain. We will follow. Aramis Green M.D. DR: KELLY JOB#: [id number] CC:
[2016-10-11] MEDS ORDERED: Tubing IV Secondary IV ONE (21:04)
[2016-10-11] MEDS ORDERED: D5 1/2NS 1000ml IV ONE (21:04)
[2016-10-11] MEDS ORDERED: Nitroglycerin Subl 0.4mg tab (Bottle Of 25) SL PRN (22:15)
[2016-10-12] VITALS: BP 120/76
[2016-10-12] MEDS ORDERED: Mylanta II UD 30ml ORAL PRN (00:15)
[2016-10-12 04:00] VITALS: BP 99/60
[2016-10-12] MEDS: metroNIDAZOLE 500mg 100 ML IVPB SCH ×3 (05:40→22:18)
[2016-10-12 07:54] LABS: BASOPHILS % (AUTO) 0.9 % (0.0-2.0); EOSINOPHILS % (AUTO) 1.3 % (0.0-3.0); LYMPHOCYTES % (AUTO) 37.8 % (20.0-45.0); MEAN CORPUSCULAR HEMOGLOBIN 33.6 PG (27.0-31.0); MEAN CORPUSCULAR HGB CONC 32.9 G/DL (32.0-36.0); MEAN CORPUSCULAR VOLUME 102 FL (80-99); MONOCYTES % (AUTO) 7.5 % (1.0-10.0); NEUTROPHILS % (AUTO) 52.6 % (45.0-75.0); PLATELET COUNT 219 K/UL (150-450); WHITE BLOOD COUNT 4.6 K/UL (4.8-10.8)
[2016-10-12 07:55] VITALS: BP 111/68
[2016-10-12 08:11] LABS: ALANINE AMINOTRANSFERASE 8 U/L (3-33); ALBUMIN/GLOBULIN RATIO 0.9 (1.0-2.7); ANION GAP 9 (5-15); ASPARTATE AMINO TRANSFERASE 14 U/L (5-40); CALCIUM 8.5 mg/dL (8.6-10.2); CARBON DIOXIDE 27 mEQ/L (20-30); CHLORIDE 105 mEQ/L (98-107); CREATININE 0.6 mg/dL (0.5-0.9); HEMOLYSIS 2; POTASSIUM 4.2 mEQ/L (3.4-4.9); SODIUM 141 mEQ/L (135-145); TOTAL PROTEIN 6.1 g/dL (6.6-8.7)
[2016-10-12] MEDS: Pantoprazole Inj IVP SCH (08:27)
[2016-10-12] MEDS: Aspirin EC 81mg tab ORAL SCH (08:27)
[2016-10-12] MEDS: Morphine Sulfate 2mg/ml Inj IVP PRN (08:28)
[2016-10-12] MEDS: Heparin 5000 units/ml inj SUBQ SCH ×2 (08:37→21:44)
--- NOTE | 2016-10-12 10:47 | General Progress Note ---
Assessment/Plan Assessment/Plan 1. Weight loss. 2. Diverticulosis. 3. Gastritis. 4. Gastric polyp. 5. Colonic polyp. 6. Fibromyalgia. 7. IBS. 8. Uterine fibroids. 9. Hypothyroidism fu MRCP fu CT pain control Subjective ROS Limited/Unobtainable: Yes Allergies: Coded Allergies: ERYTHROMYCIN BASE (Unverified Allergy, Unknown, 09/17/14) Subjective she is better Objective Last 24 Hour Vital Signs Date Time Temp Pulse Resp B/P Pulse Ox O2 Delivery O2 Flow Rate FiO2 10/12/16 08:58 97.0 10/12/16 07:55 97.0 76 18 111/68 99 Room Air 10/12/16 04:00 97.7 66 18 99/60 98 Room Air 10/12/16 00:00 97.9 75 18 120/76 97 Room Air 10/11/16 20:00 97.9 77 20 106/61 98 Room Air 10/11/16 16:00 97.5 79 20 115/76 97 Room Air 10/11/16 16:00 75 10/11/16 12:00 69 Intake and Output 10/11/16 10/12/16 19:00 07:00 Intake Total 775 ml Balance 775 ml IV Total 775 ml # Voids 2 Laboratory Tests 10/12/16 06:30: White Blood Count 4.6L, Red Blood Count 3.30L, Hemoglobin 11.1L, Hematocrit 33.8L, Mean Corpuscular Volume 102H, Mean Corpuscular Hemoglobin 33.6H, Mean Corpuscular Hemoglobin Concent 32.9, Red Cell Distribution Width 11.0L, Platelet Count 219, Mean Platelet Volume 7.0, Neutrophils (%) (Auto) 52.6, Lymphocytes (%) (Auto) 37.8, Monocytes (%) (Auto) 7.5, Eosinophils (%) (Auto) 1.3, Basophils (%) (Auto) 0.9, Sodium Level 141, Potassium Level 4.2, Chloride Level 105, Carbon Dioxide Level 27, Anion Gap 9, Blood Urea Nitrogen 10, Creatinine 0.6, Estimat Glomerular Filtration Rate , Glucose Level 98, Calcium Level 8.5L, Total Bilirubin < 0.2, Aspartate Amino Transf (AST/SGOT) 14, Alanine Aminotransferase (ALT/SGPT) 8, Alkaline Phosphatase 43, Total Protein 6.1L, Albumin 3.0L, Globulin 3.1, Albumin/Globulin Ratio 0.9L, Carcinoembryonic Antigen 1.8, CA 19-9 Antigen 37.84H Height (Feet): 5 Height (Inches): 2.00 Weight (Pounds): 100 General Appearance: alert EENT: normal ENT inspection Neck: normal alignment Cardiovascular: normal rate Respiratory/Chest: lungs clear Abdomen: normal bowel sounds, non tender, soft Extremities: non-tender TOM HENDERSON Oct 12, 2016 10:47
[2016-10-12 11:42] VITALS: BP 132/91
[2016-10-12] MEDS: LORazepam 1mg tab ORAL PRN (12:13)
[2016-10-12] MEDS: D5 1/2NS 1,000 ML IV SCH ×2 (12:13→22:47)
--- NOTE | 2016-10-12 14:05 | Internal Med Progress Note ---
Subjective Date of Service: Oct 12, 2016 Physician Name Jose Butler Attending Physician Balbir Truong MD Current Medications Medications (Trade) Dose Ordered Sig/Joy Route PRN Reason Start Time Stop Time Status Last Admin Dose Admin Acetaminophen (Tylenol) 650 mg PRN PRN ORAL For Mild Pain 10/12/16 18:00 11/11/16 17:59 Acetaminophen (Tylenol) 650 mg Q4H PRN ORAL fever 10/11/16 22:15 11/10/16 22:14 Al Hydroxide/Mg Hydroxide (Mylanta II) 30 ml Q6H PRN ORAL dyspepsia 10/12/16 00:15 11/11/16 00:14 Aspirin (Ecotrin) 81 mg DAILY ORAL 10/12/16 09:00 11/11/16 08:59 10/12/16 08:27 Carisoprodol (Soma) 350 mg TIDPRN PRN ORAL MUSCLE SPASM 10/11/16 22:28 11/10/16 22:27 Ciprofloxacin 200 ml @ 200 mls/hr Q12HR IV 10/12/16 09:00 10/17/16 08:59 10/12/16 08:27 Dextrose (Dextrose 50%) STAT PRN IV Hypoglycemia 10/12/16 18:15 11/11/16 18:14 Dextrose/Sodium Chloride 1,000 ml @ 75 mls/hr [id number] IV 10/11/16 23:00 11/10/16 22:59 10/12/16 12:13 Diphenhydramine HCl (Benadryl) 25 mg Q6H PRN ORAL Itching/Pruritis 10/12/16 00:15 11/11/16 00:14 Fluoxetine HCl (PROzac) 60 mg DAILY ORAL 10/12/16 09:00 11/11/16 08:59 10/12/16 08:28 Gabapentin (Neurontin) 600 mg Q8HR ORAL 10/12/16 06:00 11/11/16 05:59 10/12/16 13:58 Heparin Sodium (Porcine) (Heparin 5000 units/ml) 5,000 units EVERY 12 HOURS SUBQ 10/12/16 09:00 11/11/16 08:59 10/12/16 08:37 Lorazepam (Ativan) 1 mg HSPRN PRN ORAL For Anxiety 10/11/16 22:30 10/18/16 22:29 10/12/16 12:13 Metronidazole (Flagyl) 100 ml @ 100 mls/hr Q8HR IVPB 10/12/16 06:00 10/17/16 17:59 10/12/16 13:57 Morphine Sulfate (Morphine Sulfate) 2 mg Q4H PRN IVP severe Pain (Pain Scale 7-10) 10/11/16 22:15 10/18/16 22:14 10/12/16 08:28 Nitroglycerin (Ntg) 0.4 mg Q5M X 3 DOSES PRN SL Prn Chest Pain 10/11/16 22:15 11/10/16 22:14 Ondansetron HCl (Zofran) 4 mg Q6H PRN IVP Nausea & Vomiting 10/12/16 00:15 11/11/16 00:14 Pantoprazole (Protonix) 40 mg DAILY IVP 10/12/16 09:00 11/11/16 08:59 10/12/16 08:27 Polyethylene Glycol (Miralax) 17 gm HSPRN PRN ORAL Constipation 10/12/16 18:15 11/11/16 18:14 Temazepam (Restoril) 15 mg HSPRN PRN ORAL Insomnia 10/11/16 22:31 10/18/16 22:30 Thyroid ([place] Thyroid) 30 mg ACBREAKFAST ORAL 10/12/16 06:30 11/11/16 06:29 10/12/16 05:40 Allergies: Coded Allergies: ERYTHROMYCIN BASE (Unverified Allergy, Unknown, 09/17/14) ROS Limited/Unobtainable: No Constitutional: Reports: no symptoms HEENT: Reports: no symptoms Cardiovascular: Reports: no symptoms Respiratory: Reports: no symptoms Gastrointestinal/Abdominal: Reports: diarrhea, nausea Genitourinary: Reports: no symptoms Neurologic/Psychiatric: Reports: no symptoms Subjective 76 YO F admitted with epigastric pain and diarrhea. Await CT and MRCP. Cover for Josi Truong Objective Last Vital Signs Date Time Temp Pulse Resp B/P Pulse Ox O2 Delivery O2 Flow Rate FiO2 10/12/16 11:42 98.0 75 16 132/91 100 Room Air General Appearance: WD/WN, no apparent distress, alert EENT: PERRL/EOMI, normal ENT inspection Neck: non-tender, normal alignment, supple, normal inspection Cardiovascular: normal peripheral pulses, normal rate, regular rhythm, no gallop/murmur, no JVD Respiratory/Chest: chest wall non-tender, lungs clear, normal breath sounds, no respiratory distress, no accessory muscle use Abdomen: no organomegaly, no mass, decreased bowel sounds, guarding, tender Extremities: normal range of motion, non-tender Neurologic: court officer II-XII grossly normal, no motor/sensory deficits Skin: normal pigmentation, warm/dry Laboratory Tests Test 10/12/16 06:30 White Blood Count 4.6 K/UL (4.8-10.8) L Red Blood Count 3.30 M/UL (4.20-5.40) L Hemoglobin 11.1 G/DL (12.0-16.0) L Hematocrit 33.8 % (37.0-47.0) L Mean Corpuscular Volume 102 FL (80-99) H Mean Corpuscular Hemoglobin 33.6 PG (27.0-31.0) H Mean Corpuscular Hemoglobin Concent 32.9 G/DL (32.0-36.0) Red Cell Distribution Width 11.0 % (11.6-14.8) L Platelet Count 219 K/UL (150-450) Mean Platelet Volume 7.0 FL (6.5-10.1) Neutrophils (%) (Auto) 52.6 % (45.0-75.0) Lymphocytes (%) (Auto) 37.8 % (20.0-45.0) Monocytes (%) (Auto) 7.5 % (1.0-10.0) Eosinophils (%) (Auto) 1.3 % (0.0-3.0) Basophils (%) (Auto) 0.9 % (0.0-2.0) Sodium Level 141 mEQ/L (135-145) Potassium Level 4.2 mEQ/L (3.4-4.9) Chloride Level 105 mEQ/L (98-107) Carbon Dioxide Level 27 mEQ/L (20-30) Anion Gap 9 (5-15) Blood Urea Nitrogen 10 mg/dL (7-23) Creatinine 0.6 mg/dL (0.5-0.9) Estimat Glomerular Filtration Rate mL/min (>60) Glucose Level 98 mg/dL (74-106) Calcium Level 8.5 mg/dL (8.6-10.2) L Total Bilirubin < 0.2 mg/dL (0.0-1.2) Aspartate Amino Transf (AST/SGOT) 14 U/L (5-40) Alanine Aminotransferase (ALT/SGPT) 8 U/L (3-33) Alkaline Phosphatase 43 U/L (35-104) Total Protein 6.1 g/dL (6.6-8.7) L Albumin 3.0 g/dL (3.5-5.2) L Globulin 3.1 g/dL Albumin/Globulin Ratio 0.9 (1.0-2.7) L Carcinoembryonic Antigen 1.8 ng/mL CA 19-9 Antigen 37.84 U/mL (< 37) H Intake and Output 10/11/16 10/12/16 19:00 07:00 Intake Total 775 ml Balance 775 ml IV Total 775 ml # Voids 2 Assessment/Plan Problem List: (1) Epigastric abdominal pain Assessment & Plan: See GI and surgery note. Await CT abdomen and MRCP. (2) Diarrhea Assessment & Plan: Await stool culture results. (3) Nausea (4) Reflex sympathetic dystrophy (5) Hypothyroidism Assessment & Plan: Cont synthroid. (6) Fibromyalgia (7) Irritable bowel syndrome Assessment & Plan: see GI Note (8) Degenerative cervical disc Status: not improved JOSE BUTLER Oct 12, 2016 14:05
[2016-10-12] MEDS ORDERED: Tubing IV Secondary IV ONE (15:07)
--- NOTE | 2016-10-12 15:17 | Pulmonology Progress Note ---
Assessment/Plan Assessment/Plan ASSESSMENT abdominal pain possible ileus -ruled out diverticulosis possible UTI mild dehydration gastritis. gastric polyp. colonic polyp. IBS reducible bilateral inguinal hernias, partially reducible umbilical hernia, hx of [place] fibromyalgia hypothyroidism with elevated TSH PLAN OF CARE [facility] floor IVF low residue diet abdominal X ray with possible focal ileus surgery eval noted, no surgical intervention at this time; noted reducible bilateral inguinal hernias, partially reducible umbilical hernia, no evidence of intestinal obstruction surgery signed off the case abx, fup with urine cx ID follows CT A/P and MRCP pain management elevated TSH, unable to increase [place] Thyroid dose slightly ( no dosage available at pharmacy) DVT/GI prophylaxis a/emetic prn bowel regimen case discussed and evaluated by supervising physician Subjective Allergies: Coded Allergies: ERYTHROMYCIN BASE (Unverified Allergy, Unknown, 09/17/14) Subjective intermittent abdominal pain tolerates diet no n/v/ Objective Last 24 Hour Vital Signs Date Time Temp Pulse Resp B/P Pulse Ox O2 Delivery O2 Flow Rate FiO2 10/12/16 11:42 98.0 75 16 132/91 100 Room Air 10/12/16 08:58 97.0 10/12/16 07:55 97.0 76 18 111/68 99 Room Air 10/12/16 04:00 97.7 66 18 99/60 98 Room Air 10/12/16 00:00 97.9 75 18 120/76 97 Room Air 10/11/16 20:00 97.9 77 20 106/61 98 Room Air 10/11/16 16:00 97.5 79 20 115/76 97 Room Air 10/11/16 16:00 75 Intake and Output 10/11/16 10/12/16 19:00 07:00 Intake Total 775 ml Balance 775 ml IV Total 775 ml # Voids 2 Objective General Appearance: no apparent distress Lines, tubes and drains: peripheral HEENT: normocephalic, atraumatic, anicteric Neck: non-tender, supple Respiratory/Chest: chest wall non-tender, lungs clear Cardiovascular/Chest: normal rate, regular rhythm Abdomen: non tender, soft, hypoactive bowel sounds Extremities: non-tender, no calf tenderness Skin Exam: normal pigmentation, warm/dry Neurologic: alert, responsive Musculoskeletal: normal muscle bulk Laboratory Tests 10/12/16 06:30: White Blood Count 4.6L, Red Blood Count 3.30L, Hemoglobin 11.1L, Hematocrit 33.8L, Mean Corpuscular Volume 102H, Mean Corpuscular Hemoglobin 33.6H, Mean Corpuscular Hemoglobin Concent 32.9, Red Cell Distribution Width 11.0L, Platelet Count 219, Mean Platelet Volume 7.0, Neutrophils (%) (Auto) 52.6, Lymphocytes (%) (Auto) 37.8, Monocytes (%) (Auto) 7.5, Eosinophils (%) (Auto) 1.3, Basophils (%) (Auto) 0.9, Sodium Level 141, Potassium Level 4.2, Chloride Level 105, Carbon Dioxide Level 27, Anion Gap 9, Blood Urea Nitrogen 10, Creatinine 0.6, Estimat Glomerular Filtration Rate , Glucose Level 98, Calcium Level 8.5L, Total Bilirubin < 0.2, Aspartate Amino Transf (AST/SGOT) 14, Alanine Aminotransferase (ALT/SGPT) 8, Alkaline Phosphatase 43, Total Protein 6.1L, Albumin 3.0L, Globulin 3.1, Albumin/Globulin Ratio 0.9L, Carcinoembryonic Antigen 1.8, CA 19-9 Antigen 37.84H Current Medications Medications (Trade) Dose Ordered Sig/Joy Route PRN Reason Start Time Stop Time Status Last Admin Dose Admin Acetaminophen (Tylenol) 650 mg PRN PRN ORAL For Mild Pain 10/12/16 18:00 11/11/16 17:59 Acetaminophen (Tylenol) 650 mg Q4H PRN ORAL fever 10/11/16 22:15 11/10/16 22:14 Al Hydroxide/Mg Hydroxide (Mylanta II) 30 ml Q6H PRN ORAL dyspepsia 10/12/16 00:15 11/11/16 00:14 Aspirin (Ecotrin) 81 mg DAILY ORAL 10/12/16 09:00 11/11/16 08:59 10/12/16 08:27 Carisoprodol (Soma) 350 mg TIDPRN PRN ORAL MUSCLE SPASM 10/11/16 22:28 11/10/16 22:27 10/12/16 14:06 Ciprofloxacin 200 ml @ 200 mls/hr Q12HR IV 10/12/16 09:00 10/17/16 08:59 10/12/16 08:27 Dextrose (Dextrose 50%) STAT PRN IV Hypoglycemia 10/12/16 18:15 11/11/16 18:14 Dextrose/Sodium Chloride 1,000 ml @ 75 mls/hr [id number] IV 10/11/16 23:00 11/10/16 22:59 10/12/16 12:13 Diphenhydramine HCl (Benadryl) 25 mg Q6H PRN ORAL Itching/Pruritis 10/12/16 00:15 11/11/16 00:14 Fluoxetine HCl (PROzac) 60 mg DAILY ORAL 10/12/16 09:00 11/11/16 08:59 10/12/16 08:28 Gabapentin (Neurontin) 600 mg Q8HR ORAL 10/12/16 06:00 11/11/16 05:59 10/12/16 13:58 Heparin Sodium (Porcine) (Heparin 5000 units/ml) 5,000 units EVERY 12 HOURS SUBQ 10/12/16 09:00 11/11/16 08:59 10/12/16 08:37 Lorazepam (Ativan) 1 mg HSPRN PRN ORAL For Anxiety 10/11/16 22:30 10/18/16 22:29 10/12/16 12:13 Metronidazole (Flagyl) 100 ml @ 100 mls/hr Q8HR IVPB 10/12/16 06:00 10/17/16 17:59 10/12/16 13:57 Morphine Sulfate (Morphine Sulfate) 2 mg Q4H PRN IVP severe Pain (Pain Scale 7-10) 10/11/16 22:15 10/18/16 22:14 10/12/16 08:28 Nitroglycerin (Ntg) 0.4 mg Q5M X 3 DOSES PRN SL Prn Chest Pain 10/11/16 22:15 11/10/16 22:14 Ondansetron HCl (Zofran) 4 mg Q6H PRN IVP Nausea & Vomiting 10/12/16 00:15 11/11/16 00:14 Pantoprazole (Protonix) 40 mg DAILY IVP 10/12/16 09:00 11/11/16 08:59 10/12/16 08:27 Polyethylene Glycol (Miralax) 17 gm HSPRN PRN ORAL Constipation 10/12/16 18:15 11/11/16 18:14 Temazepam (Restoril) 15 mg HSPRN PRN ORAL Insomnia 10/11/16 22:31 10/18/16 22:30 Thyroid ([place] Thyroid) 30 mg ACBREAKFAST ORAL 10/12/16 06:30 11/11/16 06:29 10/12/16 05:40 [place] ([facility])Gracie NP Oct 12, 2016 15:17
[2016-10-12 16:00] VITALS: BP 106/53
--- NOTE | 2016-10-12 16:32 | Infectious Diseases Prog Note ---
Assessment/Plan Assessment/Plan ASSESSMENT: 1) probable diverticulitis flare 2) uncomplicated UTI unlikely w/o pyuria on u/a 3) no h/o MDR GNR pathogens 4) mild dehydration 5) afebrile, no leukocytosis, exam reassuring 6) normal lipase, nl LFTs, nl LDH, no metabolic derangements 7) borderline elevated CA19-9 macrocytosis, anemia hypothyroid, subtherapeutic on [place] thyroid h/o IBS borderline leukopenia, probably chronic and normal variant PLAN: -continue IV cipro 400mg IV q12hr and flagyl 500mg IV q8hr for possible diverticulitis, on D# of abx (10/11) s/p D#2 zosyn - f/u H pylori serology -GI evaluation in process, pending MRCP -pending CT a/p with contrast to r/o diverticulitis flare -f/u urine culture, f/u C diff, f/u stool cx Subjective Constitutional: Reports: no symptoms Gastrointestinal/Abdominal: Reports: diarrhea, nausea Allergies: Coded Allergies: ERYTHROMYCIN BASE (Unverified Allergy, Unknown, 09/17/14) Objective Vital Signs Last 24 Hour Vital Signs Date Time Temp Pulse Resp B/P Pulse Ox O2 Delivery O2 Flow Rate FiO2 10/12/16 15:05 98.0 10/12/16 11:42 98.0 75 16 132/91 100 Room Air 10/12/16 08:58 97.0 10/12/16 07:55 97.0 76 18 111/68 99 Room Air 10/12/16 04:00 97.7 66 18 99/60 98 Room Air 10/12/16 00:00 97.9 75 18 120/76 97 Room Air 10/11/16 20:00 97.9 77 20 106/61 98 Room Air Height (Feet): 5 Height (Inches): 2.00 Weight (Pounds): 100 Objective GEN: awake, alert, non toxic appearing, thin HEENT: Mild pale conjunctiva. oral mucosa dry, pharynx w/o exudate or effusion. No icterus. Head normocephalic, neck supple. NECK: No cervical LAD CHEST: Clear to auscultation bilaterally. HEART: S1 and S2, no murmurs, no rubs. ABDOMEN: soft, non tender, non distended, normoactive bowel sounds. no epigastric mass palpated. umbilical abd hernia, not tender, reducible. EXTREMITIES: No cyanosis, no clubbing, no edema. NEUROLOGIC: Awake, alert, no focal neurologic motor deficits. : wnl LYMPH: no LAD RECTAL: deferred Laboratory Tests Test 10/12/16 06:30 White Blood Count 4.6 K/UL (4.8-10.8) L Red Blood Count 3.30 M/UL (4.20-5.40) L Hemoglobin 11.1 G/DL (12.0-16.0) L Hematocrit 33.8 % (37.0-47.0) L Mean Corpuscular Volume 102 FL (80-99) H Mean Corpuscular Hemoglobin 33.6 PG (27.0-31.0) H Mean Corpuscular Hemoglobin Concent 32.9 G/DL (32.0-36.0) Red Cell Distribution Width 11.0 % (11.6-14.8) L Platelet Count 219 K/UL (150-450) Mean Platelet Volume 7.0 FL (6.5-10.1) Neutrophils (%) (Auto) 52.6 % (45.0-75.0) Lymphocytes (%) (Auto) 37.8 % (20.0-45.0) Monocytes (%) (Auto) 7.5 % (1.0-10.0) Eosinophils (%) (Auto) 1.3 % (0.0-3.0) Basophils (%) (Auto) 0.9 % (0.0-2.0) Sodium Level 141 mEQ/L (135-145) Potassium Level 4.2 mEQ/L (3.4-4.9) Chloride Level 105 mEQ/L (98-107) Carbon Dioxide Level 27 mEQ/L (20-30) Anion Gap 9 (5-15) Blood Urea Nitrogen 10 mg/dL (7-23) Creatinine 0.6 mg/dL (0.5-0.9) Estimat Glomerular Filtration Rate mL/min (>60) Glucose Level 98 mg/dL (74-106) Calcium Level 8.5 mg/dL (8.6-10.2) L Total Bilirubin < 0.2 mg/dL (0.0-1.2) Aspartate Amino Transf (AST/SGOT) 14 U/L (5-40) Alanine Aminotransferase (ALT/SGPT) 8 U/L (3-33) Alkaline Phosphatase 43 U/L (35-104) Total Protein 6.1 g/dL (6.6-8.7) L Albumin 3.0 g/dL (3.5-5.2) L Globulin 3.1 g/dL Albumin/Globulin Ratio 0.9 (1.0-2.7) L Carcinoembryonic Antigen 1.8 ng/mL CA 19-9 Antigen 37.84 U/mL (< 37) H Current Medications Medications (Trade) Dose Ordered Sig/Joy Route PRN Reason Start Time Stop Time Status Last Admin Dose Admin Acetaminophen (Tylenol) 650 mg PRN PRN ORAL For Mild Pain 10/12/16 18:00 11/11/16 17:59 Acetaminophen (Tylenol) 650 mg Q4H PRN ORAL fever 10/11/16 22:15 11/10/16 22:14 Al Hydroxide/Mg Hydroxide (Mylanta II) 30 ml Q6H PRN ORAL dyspepsia 10/12/16 00:15 11/11/16 00:14 Aspirin (Ecotrin) 81 mg DAILY ORAL 10/12/16 09:00 11/11/16 08:59 10/12/16 08:27 Carisoprodol (Soma) 350 mg TIDPRN PRN ORAL MUSCLE SPASM 10/11/16 22:28 11/10/16 22:27 10/12/16 14:06 Ciprofloxacin 200 ml @ 200 mls/hr Q12HR IV 10/12/16 09:00 10/17/16 08:59 10/12/16 08:27 Dextrose (Dextrose 50%) STAT PRN IV Hypoglycemia 10/12/16 18:15 11/11/16 18:14 Dextrose/Sodium Chloride 1,000 ml @ 75 mls/hr [id number] IV 10/11/16 23:00 11/10/16 22:59 10/12/16 12:13 Diphenhydramine HCl (Benadryl) 25 mg Q6H PRN ORAL Itching/Pruritis 10/12/16 00:15 11/11/16 00:14 Fluoxetine HCl (PROzac) 60 mg DAILY ORAL 10/12/16 09:00 11/11/16 08:59 10/12/16 08:28 Gabapentin (Neurontin) 600 mg Q8HR ORAL 10/12/16 06:00 11/11/16 05:59 10/12/16 13:58 Heparin Sodium (Porcine) (Heparin 5000 units/ml) 5,000 units EVERY 12 HOURS SUBQ 10/12/16 09:00 11/11/16 08:59 10/12/16 08:37 Lorazepam (Ativan) 1 mg HSPRN PRN ORAL For Anxiety 10/11/16 22:30 10/18/16 22:29 10/12/16 12:13 Metronidazole (Flagyl) 100 ml @ 100 mls/hr Q8HR IVPB 10/12/16 06:00 10/17/16 17:59 10/12/16 13:57 Morphine Sulfate (Morphine Sulfate) 2 mg Q4H PRN IVP severe Pain (Pain Scale 7-10) 10/11/16 22:15 10/18/16 22:14 10/12/16 08:28 Nitroglycerin (Ntg) 0.4 mg Q5M X 3 DOSES PRN SL Prn Chest Pain 10/11/16 22:15 11/10/16 22:14 Ondansetron HCl (Zofran) 4 mg Q6H PRN IVP Nausea & Vomiting 10/12/16 00:15 11/11/16 00:14 Pantoprazole (Protonix) 40 mg DAILY IVP 10/12/16 09:00 11/11/16 08:59 10/12/16 08:27 Polyethylene Glycol (Miralax) 17 gm HSPRN PRN ORAL Constipation 10/12/16 18:15 11/11/16 18:14 Temazepam (Restoril) 15 mg HSPRN PRN ORAL Insomnia 10/11/16 22:31 10/18/16 22:30 Thyroid ([place] Thyroid) 30 mg ACBREAKFAST ORAL 10/12/16 06:30 11/11/16 06:29 10/12/16 05:40 David Dixon M.D. Oct 12, 2016 16:32
[2016-10-12] MEDS ORDERED: Miralax 17gm pkt ORAL PRN (18:15)
[2016-10-12 20:00] VITALS: BP 104/60
[2016-10-13] VITALS: BP 110/70
[2016-10-13 04:00] VITALS: BP 109/65
[2016-10-13] MEDS: metroNIDAZOLE 500mg 100 ML IVPB SCH ×2 (06:23→14:00)
[2016-10-13 07:03] LABS: BASOPHILS % (AUTO) 0.9 % (0.0-2.0); EOSINOPHILS % (AUTO) 1.2 % (0.0-3.0); MEAN CORPUSCULAR HEMOGLOBIN 34.6 PG (27.0-31.0); MEAN CORPUSCULAR HGB CONC 33.9 G/DL (32.0-36.0); MEAN CORPUSCULAR VOLUME 102 FL (80-99); MEAN PLATELET VOLUME 6.8 FL (6.5-10.1); MONOCYTES % (AUTO) 5.6 % (1.0-10.0); NEUTROPHILS % (AUTO) 64.3 % (45.0-75.0); PLATELET COUNT 219 K/UL (150-450); RED BLOOD COUNT 3.46 M/UL (4.20-5.40); RED CELL DISTRIBUTION WIDTH 11.2 % (11.6-14.8); WHITE BLOOD COUNT 4.9 K/UL (4.8-10.8)
[2016-10-13 07:12] LABS: CALCIUM 8.8 mg/dL (8.6-10.2); CARBON DIOXIDE 28 mEQ/L (20-30); CREATININE 0.7 mg/dL (0.5-0.9); HEMOLYSIS 4
[2016-10-13] MEDS: Morphine Sulfate 2mg/ml Inj IVP PRN (08:32)
[2016-10-13 08:55] VITALS: BP 131/71
[2016-10-13] MEDS: Heparin 5000 units/ml inj SUBQ SCH ×2 (09:00→21:00)
[2016-10-13 09:13] LABS: ANION GAP 9 (5-15); CHLORIDE 106 mEQ/L (98-107); POTASSIUM 4.7 mEQ/L (3.4-4.9); SODIUM 143 mEQ/L (135-145)
[2016-10-13] MEDS: Pantoprazole Inj IVP SCH (10:40)
[2016-10-13] MEDS: Aspirin EC 81mg tab ORAL SCH (10:40)
--- NOTE | 2016-10-13 12:11 | Internal Med Progress Note ---
Subjective Date of Service: Oct 13, 2016 Physician Name Jose Butler Attending Physician Balbir Truong MD Current Medications Medications (Trade) Dose Ordered Sig/Joy Route PRN Reason Start Time Stop Time Status Last Admin Dose Admin Acetaminophen (Tylenol) 650 mg PRN PRN ORAL For Mild Pain 10/12/16 18:00 11/11/16 17:59 Acetaminophen (Tylenol) 650 mg Q4H PRN ORAL fever 10/11/16 22:15 11/10/16 22:14 Al Hydroxide/Mg Hydroxide (Mylanta II) 30 ml Q6H PRN ORAL dyspepsia 10/12/16 00:15 11/11/16 00:14 Aspirin (Ecotrin) 81 mg DAILY ORAL 10/12/16 09:00 11/11/16 08:59 10/13/16 10:40 Carisoprodol (Soma) 350 mg TIDPRN PRN ORAL MUSCLE SPASM 10/11/16 22:28 11/10/16 22:27 10/12/16 14:06 Ciprofloxacin 200 ml @ 200 mls/hr Q12HR IV 10/12/16 09:00 10/17/16 08:59 10/13/16 10:41 Dextrose (Dextrose 50%) STAT PRN IV Hypoglycemia 10/12/16 18:15 11/11/16 18:14 Dextrose/Sodium Chloride 1,000 ml @ 75 mls/hr [id number] IV 10/11/16 23:00 11/10/16 22:59 10/12/16 22:47 Diphenhydramine HCl (Benadryl) 25 mg Q6H PRN ORAL Itching/Pruritis 10/12/16 00:15 11/11/16 00:14 Fluoxetine HCl (PROzac) 60 mg DAILY ORAL 10/12/16 09:00 11/11/16 08:59 10/13/16 10:41 Gabapentin (Neurontin) 600 mg Q8HR ORAL 10/12/16 06:00 11/11/16 05:59 10/13/16 06:23 Heparin Sodium (Porcine) (Heparin 5000 units/ml) 5,000 units EVERY 12 HOURS SUBQ 10/12/16 09:00 11/11/16 08:59 10/12/16 21:44 Lorazepam (Ativan) 1 mg HSPRN PRN ORAL For Anxiety 10/11/16 22:30 10/18/16 22:29 10/12/16 12:13 Metronidazole (Flagyl) 100 ml @ 100 mls/hr Q8HR IVPB 10/12/16 06:00 10/17/16 17:59 10/13/16 06:23 Morphine Sulfate (Morphine Sulfate) 2 mg Q4H PRN IVP severe Pain (Pain Scale 7-10) 10/11/16 22:15 10/18/16 22:14 10/13/16 08:32 Nitroglycerin (Ntg) 0.4 mg Q5M X 3 DOSES PRN SL Prn Chest Pain 10/11/16 22:15 11/10/16 22:14 Ondansetron HCl (Zofran) 4 mg Q6H PRN IVP Nausea & Vomiting 10/12/16 00:15 11/11/16 00:14 Pantoprazole (Protonix) 40 mg DAILY IVP 10/12/16 09:00 11/11/16 08:59 10/13/16 10:40 Polyethylene Glycol (Miralax) 17 gm HSPRN PRN ORAL Constipation 10/12/16 18:15 11/11/16 18:14 Temazepam (Restoril) 15 mg HSPRN PRN ORAL Insomnia 10/11/16 22:31 10/18/16 22:30 Thyroid ([place] Thyroid) 30 mg ACBREAKFAST ORAL 10/12/16 06:30 11/11/16 06:29 10/13/16 06:23 Allergies: Coded Allergies: ERYTHROMYCIN BASE (Unverified Allergy, Unknown, 09/17/14) ROS Limited/Unobtainable: No Constitutional: Reports: no symptoms HEENT: Reports: no symptoms Cardiovascular: Reports: no symptoms Respiratory: Reports: no symptoms Gastrointestinal/Abdominal: Reports: no symptoms Genitourinary: Reports: no symptoms Neurologic/Psychiatric: Reports: no symptoms Subjective 76 YO F admitted with epigastric pain and diarrhea. Await CT and MRCP. Cover for Int Florentino-Dr Truong Objective Last Vital Signs Date Time Temp Pulse Resp B/P Pulse Ox O2 Delivery O2 Flow Rate FiO2 10/13/16 08:55 97.3 68 20 131/71 100 Room Air Laboratory Tests Test 10/13/16 05:50 White Blood Count 4.9 K/UL (4.8-10.8) Red Blood Count 3.46 M/UL (4.20-5.40) L Hemoglobin 12.0 G/DL (12.0-16.0) Hematocrit 35.3 % (37.0-47.0) L Mean Corpuscular Volume 102 FL (80-99) H Mean Corpuscular Hemoglobin 34.6 PG (27.0-31.0) H Mean Corpuscular Hemoglobin Concent 33.9 G/DL (32.0-36.0) Red Cell Distribution Width 11.2 % (11.6-14.8) L Platelet Count 219 K/UL (150-450) Mean Platelet Volume 6.8 FL (6.5-10.1) Neutrophils (%) (Auto) 64.3 % (45.0-75.0) Lymphocytes (%) (Auto) 28.0 % (20.0-45.0) Monocytes (%) (Auto) 5.6 % (1.0-10.0) Eosinophils (%) (Auto) 1.2 % (0.0-3.0) Basophils (%) (Auto) 0.9 % (0.0-2.0) Sodium Level 143 mEQ/L (135-145) Potassium Level 4.7 mEQ/L (3.4-4.9) Chloride Level 106 mEQ/L (98-107) Carbon Dioxide Level 28 mEQ/L (20-30) Anion Gap 9 (5-15) Blood Urea Nitrogen 10 mg/dL (7-23) Creatinine 0.7 mg/dL (0.5-0.9) Estimat Glomerular Filtration Rate mL/min (>60) Glucose Level 115 mg/dL (74-106) H Calcium Level 8.8 mg/dL (8.6-10.2) Microbiology Date/Time Source Procedure Growth Status 10/12/16 14:44 Stool Clostridium difficile Toxin Assay - Final Complete 10/12/16 01:30 Urine,Clean Catch Urine Culture - Preliminary NO GROWTH Resulted Intake and Output 10/12/16 10/13/16 19:00 07:00 Intake Total 375 ml 950 ml Output Total 2 ml Balance 373 ml 950 ml IV Total 375 ml 950 ml Output Urine Total 2 ml # Voids 2 # Bowel Movements 1 2 Objective General Appearance: WD/WN, no apparent distress, alert EENT: PERRL/EOMI, normal ENT inspection Neck: non-tender, normal alignment, supple, normal inspection Cardiovascular: normal peripheral pulses, normal rate, regular rhythm, no gallop/murmur, no JVD Respiratory/Chest: chest wall non-tender, lungs clear, normal breath sounds, no respiratory distress, no accessory muscle use Abdomen: no organomegaly, no mass, decreased bowel sounds, guarding, tender Extremities: normal range of motion, non-tender 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 Await CT abdomen and MRCP. (2) Diarrhea Assessment & Plan: Await stool culture results. (3) Nausea (4) Reflex sympathetic dystrophy (5) Hypothyroidism Assessment & Plan: Cont synthroid. (6) Fibromyalgia (7) Irritable bowel syndrome Assessment & Plan: see GI Note (8) Degenerative cervical disc Status: progressing Assessment/Plan Discharge planning: home health JOSE BUTLER Oct 13, 2016 12:11
--- NOTE | 2016-10-13 12:17 | GI Progress Note ---
Assessment/Plan Problems: (1) Nausea ICD Codes: R11.0 - Nausea SNOMED: 667835780 (2) Epigastric abdominal pain ICD Codes: R10.13 - Epigastric pain SNOMED: 56021227 (3) Diarrhea ICD Codes: R19.7 - Diarrhea, unspecified SNOMED: 79831655 (4) Irritable bowel syndrome ICD Codes: K58.9 - Irritable bowel syndrome without diarrhea SNOMED: 19734545 (5) Ileus ICD Codes: K56.7 - Ileus, unspecified SNOMED: 031130050 (6) Abdominal pain ICD Codes: R10.9 - Unspecified abdominal pain SNOMED: 49863844 Qualifiers: Qualified Codes: R10.9 - Unspecified abdominal pain (7) Abdominal pain of unknown etiology ICD Codes: R10.9 - Unspecified abdominal pain SNOMED: 551001033 Status: stable Status Narrative Discussed with Dr. Green. Assessment/Plan S/P recent EGD/colonoscopy @ [facility] 1. Weight loss. 2. Diverticulosis. 3. Gastritis. 4. Gastric polyp. 5. Colonic polyp. 6. Fibromyalgia. 7. IBS. 8. Uterine fibroids. 9. Hypothyroidism cdiff negative CA19-9 mild elevation fu stool fat, culture thyroid panel fu MRCP fu CT fu H. Pylori pain control Imodium prn Subjective Subjective abdominal pain improved ambulating Objective Last 24 Hour Vital Signs Date Time Temp Pulse Resp B/P Pulse Ox O2 Delivery O2 Flow Rate FiO2 10/13/16 08:55 97.3 68 20 131/71 100 Room Air 10/13/16 04:00 98.0 77 20 109/65 97 Room Air 10/13/16 00:00 98.0 70 20 110/70 Room Air 10/12/16 20:00 97.9 76 20 104/60 97 Room Air 10/12/16 16:00 97.9 81 16 106/53 99 Room Air 10/12/16 15:05 98.0 Intake and Output 10/12/16 10/13/16 19:00 07:00 Intake Total 375 ml 950 ml Output Total 2 ml Balance 373 ml 950 ml IV Total 375 ml 950 ml Output Urine Total 2 ml # Voids 2 # Bowel Movements 1 2 Laboratory Tests Test 10/13/16 05:50 White Blood Count 4.9 K/UL (4.8-10.8) Red Blood Count 3.46 M/UL (4.20-5.40) L Hemoglobin 12.0 G/DL (12.0-16.0) Hematocrit 35.3 % (37.0-47.0) L Mean Corpuscular Volume 102 FL (80-99) H Mean Corpuscular Hemoglobin 34.6 PG (27.0-31.0) H Mean Corpuscular Hemoglobin Concent 33.9 G/DL (32.0-36.0) Red Cell Distribution Width 11.2 % (11.6-14.8) L Platelet Count 219 K/UL (150-450) Mean Platelet Volume 6.8 FL (6.5-10.1) Neutrophils (%) (Auto) 64.3 % (45.0-75.0) Lymphocytes (%) (Auto) 28.0 % (20.0-45.0) Monocytes (%) (Auto) 5.6 % (1.0-10.0) Eosinophils (%) (Auto) 1.2 % (0.0-3.0) Basophils (%) (Auto) 0.9 % (0.0-2.0) Sodium Level 143 mEQ/L (135-145) Potassium Level 4.7 mEQ/L (3.4-4.9) Chloride Level 106 mEQ/L (98-107) Carbon Dioxide Level 28 mEQ/L (20-30) Anion Gap 9 (5-15) Blood Urea Nitrogen 10 mg/dL (7-23) Creatinine 0.7 mg/dL (0.5-0.9) Estimat Glomerular Filtration Rate mL/min (>60) Glucose Level 115 mg/dL (74-106) H Calcium Level 8.8 mg/dL (8.6-10.2) Microbiology Date/Time Source Procedure Growth Status 10/12/16 14:44 Stool Clostridium difficile Toxin Assay - Final Complete Height (Feet): 5 Height (Inches): 2.00 Weight (Pounds): 100 General Appearance: no apparent distress, alert, thin Cardiovascular: normal rate Respiratory/Chest: normal breath sounds, no accessory muscle use Abdominal Exam: normal bowel sounds, non tender, soft Extremities: normal range of motion Felicita Melton N.PSu Oct 13, 2016 12:17
[2016-10-13] MEDS: LORazepam 1mg tab ORAL PRN (12:28)
[2016-10-13] MEDS ORDERED: Loperamide 2mg cap ORAL PRN (12:30)
[2016-10-13] MEDS ORDERED: Heparin 2000 units/Ns 1000ml INJ PRN (12:45)
[2016-10-13] MEDS ORDERED: Lidocaine 1% Plain 30 ml INJ PRN (12:45)
[2016-10-13] MEDS: D5 1/2NS 1,000 ML IV SCH (15:00)
--- NOTE | 2016-10-13 15:11 | Diagnostic Imaging Report ---
Indication: Dilated biliary ducts Technique: MRI of the abdomen was performed in a 1.5 Alycia magnet. Pulse sequences obtained include coronal and axial T2 single shot fast spin echo breathhold and respiratory gated coronal T2 3-D M.R.C.P.; this data set was displayed in different projections or MIPs. In addition, multiple coronal oblique thin T2 weighted, fat saturated SE sequences obtained through the CBD. Comparison: None Findings: There is some prominence of the biliary ducts. No choledocholithiasis is seen. There is breathing motion artifact which limits evaluation. CBD diameter is about 7-8 mm. There are bilateral renal cysts present. There is no ascites. Impression: Some prominence of the biliary ducts. No evidence of choledocholithiasis. Bilateral renal cysts Breathing motion artifacts
[2016-10-13 15:50] VITALS: BP 114/59
--- NOTE | 2016-10-13 17:11 | Infectious Diseases Prog Note ---
Assessment/Plan Assessment/Plan ASSESSMENT: 1) probable diverticulitis flare 2) uncomplicated UTI unlikely w/o pyuria on u/a 3) no h/o MDR GNR pathogens 4) mild dehydration 5) afebrile, no leukocytosis, exam reassuring 6) normal lipase, nl LFTs, nl LDH, no metabolic derangements 7) borderline elevated CA19-9 8) MRCP with mild biliary ductal dilatation but no choledocholithiasis, no cholecystitis, no pneumobilia 9) pending CT a/p to r/o diverticulitis flare. 10) unable to get reliable IV access 11) stool C diff negative macrocytosis, anemia hypothyroid, subtherapeutic on armour thyroid h/o IBS borderline leukopenia, probably chronic and normal variant PLAN: -continue cipro and flagyl D#3 of abx. switch to PO abx now. (10/11) s/p D#2 zosyn - f/u H pylori serology -GI evaluation in process, s/p reassuring MRCP -pending CT a/p with contrast to r/o diverticulitis flare, if negative plan to d /c cipro/flagyl -f/u urine culture ngtd at 24 hrs, f/u stool cx Subjective Constitutional: Reports: no symptoms Gastrointestinal/Abdominal: Reports: diarrhea, nausea Skin: Reports: no symptoms Allergies: Coded Allergies: ERYTHROMYCIN BASE (Unverified Allergy, Unknown, 09/17/14) Objective Vital Signs Last 24 Hour Vital Signs Date Time Temp Pulse Resp B/P Pulse Ox O2 Delivery O2 Flow Rate FiO2 10/13/16 15:50 96.8 78 20 114/59 99 Room Air 10/13/16 08:55 97.3 68 20 131/71 100 Room Air 10/13/16 04:00 98.0 77 20 109/65 97 Room Air 10/13/16 00:00 98.0 70 20 110/70 Room Air 10/12/16 20:00 97.9 76 20 104/60 97 Room Air Height (Feet): 5 Height (Inches): 2.00 Weight (Pounds): 100 Objective GEN: awake, alert, non toxic appearing, thin HEENT: Mild pale conjunctiva. oral mucosa dry, pharynx w/o exudate or effusion. No icterus. Head normocephalic, neck supple. NECK: No cervical LAD CHEST: Clear to auscultation bilaterally. HEART: S1 and S2, no murmurs, no rubs. ABDOMEN: soft, non tender, non distended, normoactive bowel sounds. no epigastric mass palpated. umbilical abd hernia, not tender, reducible. EXTREMITIES: No cyanosis, no clubbing, no edema. NEUROLOGIC: Awake, alert, no focal neurologic motor deficits. : wnl LYMPH: no LAD RECTAL: deferred Microbiology Date/Time Source Procedure Growth Status 10/12/16 14:44 Stool Clostridium difficile Toxin Assay - Final Complete 10/12/16 01:30 Urine,Clean Catch Urine Culture - Preliminary NO GROWTH Resulted Laboratory Tests Test 10/13/16 05:50 White Blood Count 4.9 K/UL (4.8-10.8) Red Blood Count 3.46 M/UL (4.20-5.40) L Hemoglobin 12.0 G/DL (12.0-16.0) Hematocrit 35.3 % (37.0-47.0) L Mean Corpuscular Volume 102 FL (80-99) H Mean Corpuscular Hemoglobin 34.6 PG (27.0-31.0) H Mean Corpuscular Hemoglobin Concent 33.9 G/DL (32.0-36.0) Red Cell Distribution Width 11.2 % (11.6-14.8) L Platelet Count 219 K/UL (150-450) Mean Platelet Volume 6.8 FL (6.5-10.1) Neutrophils (%) (Auto) 64.3 % (45.0-75.0) Lymphocytes (%) (Auto) 28.0 % (20.0-45.0) Monocytes (%) (Auto) 5.6 % (1.0-10.0) Eosinophils (%) (Auto) 1.2 % (0.0-3.0) Basophils (%) (Auto) 0.9 % (0.0-2.0) Sodium Level 143 mEQ/L (135-145) Potassium Level 4.7 mEQ/L (3.4-4.9) Chloride Level 106 mEQ/L (98-107) Carbon Dioxide Level 28 mEQ/L (20-30) Anion Gap 9 (5-15) Blood Urea Nitrogen 10 mg/dL (7-23) Creatinine 0.7 mg/dL (0.5-0.9) Estimat Glomerular Filtration Rate mL/min (>60) Glucose Level 115 mg/dL (74-106) H Calcium Level 8.8 mg/dL (8.6-10.2) Patient : BRITTANY GILLETTE Referring Physician: TOM HENDERSON ID Number: [id number] Service Date: 10/13/16 : 1940 Report Date: 10/13/16 Gender: F Accession No.: [id number] Location: 4W Procedure: MRI Abdomen no Contrast Indication: Dilated biliary ducts Technique: MRI of the abdomen was performed in a 1.5 Alycia magnet. Pulse sequences obtained include coronal and axial T2 single shot fast spin echo breathhold and respiratory gated coronal T2 3-D M.R.C.P.; this data set was displayed in different projections or MIPs. In addition, multiple coronal oblique thin T2 weighted, fat saturated SE sequences obtained through the CBD. Comparison: None Findings: There is some prominence of the biliary ducts. No choledocholithiasis is seen. There is breathing motion artifact which limits evaluation. CBD diameter is about 7-8 mm. There are bilateral renal cysts present. There is no ascites. Impression: Some prominence of the biliary ducts. No evidence of choledocholithiasis. Bilateral renal cysts Breathing motion artifacts Dictated By: YANDEL HERNADEZ M.D. Electronically Signed By: YANDEL HERNADEZ M.D. Signed Date/Time 10/13/16 1511 Current Medications Medications (Trade) Dose Ordered Sig/Joy Route PRN Reason Start Time Stop Time Status Last Admin Dose Admin Acetaminophen (Tylenol) 650 mg PRN PRN ORAL For Mild Pain 10/12/16 18:00 11/11/16 17:59 Acetaminophen (Tylenol) 650 mg Q4H PRN ORAL fever 10/11/16 22:15 11/10/16 22:14 Al Hydroxide/Mg Hydroxide (Mylanta II) 30 ml Q6H PRN ORAL dyspepsia 10/12/16 00:15 11/11/16 00:14 Aspirin (Ecotrin) 81 mg DAILY ORAL 10/12/16 09:00 11/11/16 08:59 10/13/16 10:40 Carisoprodol (Soma) 350 mg TIDPRN PRN ORAL MUSCLE SPASM 10/11/16 22:28 11/10/16 22:27 10/12/16 14:06 Chlorhexidine Gluconate (Stacey-Hex 2%) 1 applic DAILY TOPIC 10/13/16 18:00 11/12/16 17:59 Ciprofloxacin 200 ml @ 200 mls/hr Q12HR IV 10/12/16 09:00 10/17/16 08:59 10/13/16 10:41 Dextrose (Dextrose 50%) STAT PRN IV Hypoglycemia 10/12/16 18:15 11/11/16 18:14 Dextrose/Sodium Chloride 1,000 ml @ 75 mls/hr [id number] IV 10/11/16 23:00 11/10/16 22:59 10/12/16 22:47 Diphenhydramine HCl (Benadryl) 25 mg Q6H PRN ORAL Itching/Pruritis 10/12/16 00:15 11/11/16 00:14 Fluoxetine HCl (PROzac) 60 mg DAILY ORAL 10/12/16 09:00 11/11/16 08:59 10/13/16 10:41 Gabapentin (Neurontin) 600 mg Q8HR ORAL 10/12/16 06:00 11/11/16 05:59 10/13/16 15:14 Heparin Sodium (Porcine) (Heparin 5000 units/ml) 5,000 units EVERY 12 HOURS SUBQ 10/12/16 09:00 11/11/16 08:59 10/12/16 21:44 Heparin Sodium/ Sodium Chloride (Heparin 2000 units/Ns 1000ml premix) 2,000 unit ONCE PRN INJ PICC LINE PLACEMENT 10/13/16 12:45 11/12/16 12:44 Lidocaine HCl (Xylocaine 1% 30ml) 30 ml ONCE PRN INJ PICC LINE PLACEMENT 10/13/16 12:45 10/13/16 18:00 Loperamide HCl (Imodium) 2 mg Q4H PRN ORAL Diarrhea 10/13/16 12:30 11/12/16 12:29 Lorazepam (Ativan) 1 mg HSPRN PRN ORAL For Anxiety 10/11/16 22:30 10/18/16 22:29 10/13/16 12:28 Metronidazole (Flagyl) 100 ml @ 100 mls/hr Q8HR IVPB 10/12/16 06:00 10/17/16 17:59 10/13/16 06:23 Morphine Sulfate (Morphine Sulfate) 2 mg Q4H PRN IVP severe Pain (Pain Scale 7-10) 10/11/16 22:15 10/18/16 22:14 10/13/16 08:32 Nitroglycerin (Ntg) 0.4 mg Q5M X 3 DOSES PRN SL Prn Chest Pain 10/11/16 22:15 11/10/16 22:14 Ondansetron HCl (Zofran) 4 mg Q6H PRN IVP Nausea & Vomiting 10/12/16 00:15 11/11/16 00:14 Pantoprazole (Protonix) 40 mg DAILY IVP 10/12/16 09:00 11/11/16 08:59 10/13/16 10:40 Polyethylene Glycol (Miralax) 17 gm HSPRN PRN ORAL Constipation 10/12/16 18:15 11/11/16 18:14 Temazepam (Restoril) 15 mg HSPRN PRN ORAL Insomnia 10/11/16 22:31 10/18/16 22:30 Thyroid ([place] Thyroid) 30 mg ACBREAKFAST ORAL 10/12/16 06:30 11/11/16 06:29 10/13/16 06:23 David Dixon M.D. Oct 13, 2016 17:11
[2016-10-13] MEDS: Dyna-Hex 2% Top Sol 8oz TOPIC SCH (18:00)
[2016-10-13 20:00] VITALS: BP 118/75
[2016-10-13] MEDS ORDERED: Ciprofloxacin 500mg tab ORAL SCH (21:00)
[2016-10-13] MEDS: metroNIDAZOLE 500mg tab ORAL SCH (21:08)
--- NOTE | 2016-10-13 23:35 | Pulmonology Progress Note ---
Assessment/Plan Problems: (1) Ileus (2) Abdominal pain of unknown etiology (3) Hypothyroidism (4) Epigastric abdominal pain (5) Nausea (6) Irritable bowel syndrome Assessment/Plan IV fluids symptomatic f/u GI evaluation check electrolytes dvt prophylaxis all meds and notes reviewed Subjective ROS Limited/Unobtainable: No Interval Events: still c/o abd pain Allergies: Coded Allergies: ERYTHROMYCIN BASE (Unverified Allergy, Unknown, 09/17/14) Objective Last 24 Hour Vital Signs Date Time Temp Pulse Resp B/P Pulse Ox O2 Delivery O2 Flow Rate FiO2 10/13/16 20:00 97.3 72 18 118/75 100 Room Air 10/13/16 15:50 96.8 78 20 114/59 99 Room Air 10/13/16 08:55 97.3 68 20 131/71 100 Room Air 10/13/16 04:00 98.0 77 20 109/65 97 Room Air 10/13/16 00:00 98.0 70 20 110/70 Room Air Intake and Output 10/12/16 10/13/16 19:00 07:00 Intake Total 375 ml 950 ml Output Total 2 ml Balance 373 ml 950 ml IV Total 375 ml 950 ml Output Urine Total 2 ml # Voids 2 # Bowel Movements 1 2 General Appearance: cachetic HEENT: normocephalic, atraumatic Respiratory/Chest: chest wall non-tender, lungs clear Breasts: no masses Cardiovascular: normal peripheral pulses Abdomen: normal bowel sounds Genitourinary: normal external genitalia Extremities: no cyanosis Microbiology Date/Time Source Procedure Growth Status 10/12/16 14:44 Stool Clostridium difficile Toxin Assay - Final Complete 10/12/16 01:30 Urine,Clean Catch Urine Culture - Preliminary NO GROWTH Resulted Laboratory Tests 10/13/16 05:50: White Blood Count 4.9, Red Blood Count 3.46L, Hemoglobin 12.0, Hematocrit 35.3L , Mean Corpuscular Volume 102H, Mean Corpuscular Hemoglobin 34.6H, Mean Corpuscular Hemoglobin Concent 33.9, Red Cell Distribution Width 11.2L, Platelet Count 219, Mean Platelet Volume 6.8, Neutrophils (%) (Auto) 64.3, Lymphocytes (%) (Auto) 28.0, Monocytes (%) (Auto) 5.6, Eosinophils (%) (Auto) 1.2, Basophils (%) (Auto) 0.9, Sodium Level 143, Potassium Level 4.7, Chloride Level 106, Carbon Dioxide Level 28, Anion Gap 9, Blood Urea Nitrogen 10, Creatinine 0.7, Estimat Glomerular Filtration Rate , Glucose Level 115H, Calcium Level 8.8 10/13/16 20:00: Stool Fat Screen [Pending] Current Medications Medications (Trade) Dose Ordered Sig/Joy Route PRN Reason Start Time Stop Time Status Last Admin Dose Admin Acetaminophen (Tylenol) 650 mg PRN PRN ORAL For Mild Pain 10/12/16 18:00 11/11/16 17:59 Acetaminophen (Tylenol) 650 mg Q4H PRN ORAL fever 10/11/16 22:15 11/10/16 22:14 Al Hydroxide/Mg Hydroxide (Mylanta II) 30 ml Q6H PRN ORAL dyspepsia 10/12/16 00:15 11/11/16 00:14 Aspirin (Ecotrin) 81 mg DAILY ORAL 10/12/16 09:00 11/11/16 08:59 10/13/16 10:40 Carisoprodol (Soma) 350 mg TIDPRN PRN ORAL MUSCLE SPASM 10/11/16 22:28 11/10/16 22:27 10/12/16 14:06 Chlorhexidine Gluconate (Stacey-Hex 2%) 1 applic DAILY TOPIC 10/13/16 18:00 11/12/16 17:59 Ciprofloxacin (Cipro 500mg tab) 500 mg EVERY 12 HOURS ORAL 10/13/16 21:00 10/17/16 20:59 10/13/16 21:08 Dextrose (Dextrose 50%) STAT PRN IV Hypoglycemia 10/12/16 18:15 11/11/16 18:14 Dextrose/Sodium Chloride (D5 0.45% NS) 1,000 ml @ 75 mls/hr [id number] IV 10/11/16 23:00 11/10/16 22:59 10/12/16 22:47 Diphenhydramine HCl (Benadryl) 25 mg Q6H PRN ORAL Itching/Pruritis 10/12/16 00:15 11/11/16 00:14 Fluoxetine HCl (PROzac) 60 mg DAILY ORAL 10/12/16 09:00 11/11/16 08:59 10/13/16 10:41 Gabapentin (Neurontin) 600 mg Q8HR ORAL 10/12/16 06:00 11/11/16 05:59 10/13/16 15:14 Heparin Sodium (Porcine) (Heparin 5000 units/ml) 5,000 units EVERY 12 HOURS SUBQ 10/12/16 09:00 11/11/16 08:59 10/12/16 21:44 Heparin Sodium/ Sodium Chloride (Heparin 2000 units/Ns 1000ml premix) 2,000 unit ONCE PRN INJ PICC LINE PLACEMENT 10/13/16 12:45 11/12/16 12:44 Loperamide HCl (Imodium) 2 mg Q4H PRN ORAL Diarrhea 10/13/16 12:30 11/12/16 12:29 Lorazepam (Ativan) 1 mg HSPRN PRN ORAL For Anxiety 10/11/16 22:30 10/18/16 22:29 10/13/16 12:28 Metronidazole (Flagyl) 500 mg Q8HR ORAL 10/13/16 22:00 10/17/16 21:59 10/13/16 21:08 Morphine Sulfate (Morphine Sulfate) 2 mg Q4H PRN IVP severe Pain (Pain Scale 7-10) 10/11/16 22:15 10/18/16 22:14 10/13/16 08:32 Nitroglycerin (Ntg) 0.4 mg Q5M X 3 DOSES PRN SL Prn Chest Pain 10/11/16 22:15 11/10/16 22:14 Ondansetron HCl (Zofran) 4 mg Q6H PRN IVP Nausea & Vomiting 10/12/16 00:15 11/11/16 00:14 Pantoprazole (Protonix) 40 mg DAILY IVP 10/12/16 09:00 11/11/16 08:59 10/13/16 10:40 Polyethylene Glycol (Miralax) 17 gm HSPRN PRN ORAL Constipation 10/12/16 18:15 11/11/16 18:14 Temazepam (Restoril) 15 mg HSPRN PRN ORAL Insomnia 10/11/16 22:31 10/18/16 22:30 Thyroid ([place] Thyroid) 30 mg ACBREAKFAST ORAL 10/12/16 06:30 11/11/16 06:29 10/13/16 06:23 MAUREEN ROJAS Oct 13, 2016 23:35
[2016-10-14] VITALS: BP 105/65
[2016-10-14 04:00] VITALS: BP 137/79
[2016-10-14] MEDS: Morphine Sulfate 2mg/ml Inj IVP PRN ×2 (04:47→10:01)
[2016-10-14] MEDS: D5 1/2NS 1,000 ML IV SCH ×2 (04:59→19:10)
[2016-10-14] MEDS: metroNIDAZOLE 500mg tab ORAL SCH ×3 (06:00→21:32)
[2016-10-14 07:03] LABS: BASOPHILS % (AUTO) 0.9 % (0.0-2.0); EOSINOPHILS % (AUTO) 1.7 % (0.0-3.0); LYMPHOCYTES % (AUTO) 32.5 % (20.0-45.0); MEAN CORPUSCULAR HEMOGLOBIN 34.3 PG (27.0-31.0); MEAN CORPUSCULAR HGB CONC 33.1 G/DL (32.0-36.0); MEAN CORPUSCULAR VOLUME 104 FL (80-99); MEAN PLATELET VOLUME 6.9 FL (6.5-10.1); MONOCYTES % (AUTO) 8.9 % (1.0-10.0); NEUTROPHILS % (AUTO) 55.9 % (45.0-75.0); PLATELET COUNT 220 K/UL (150-450); RED BLOOD COUNT 3.46 M/UL (4.20-5.40); RED CELL DISTRIBUTION WIDTH 11.2 % (11.6-14.8); WHITE BLOOD COUNT 3.5 K/UL (4.8-10.8)
[2016-10-14 07:28] LABS: ANION GAP 7 (5-15); CALCIUM 8.6 mg/dL (8.6-10.2); CARBON DIOXIDE 29 mEQ/L (20-30); CHLORIDE 104 mEQ/L (98-107); CREATININE 0.7 mg/dL (0.5-0.9); HEMOLYSIS 6; POTASSIUM 3.9 mEQ/L (3.4-4.9); SODIUM 140 mEQ/L (135-145)
[2016-10-14 08:00] VITALS: BP 132/78
[2016-10-14] MEDS: Dyna-Hex 2% Top Sol 8oz TOPIC SCH (09:00)
[2016-10-14] MEDS: Heparin 5000 units/ml inj SUBQ SCH ×2 (09:00→21:00)
--- NOTE | 2016-10-14 09:05 | Diagnostic Imaging Report ---
Indication: Abdominal pain Technique: Continuous helical transaxial imaging of the abdomen and pelvis was obtained from the lung bases to the pubic symphysis during intravenous contrast administration. Coronal 2-D reformats were also obtained. Study obtained in a Siemens sensation [address] Total Dose length Product (DLP): [address] Dose Index Volume (CTDIvol): 13 mGy Comparison: None Findings: There is minimal basilar atelectasis present. The area of the gastric pylorus shows some wall thickening present disease image 32 series 3). This is not evaluated well or to any adequate fashion on the current study. Suggest EGD for further evaluation. The liver is low-attenuation consistent with fatty infiltration. Low-density lesions consistent with cyst demonstrated within the kidneys bilaterally. Gallbladder is grossly unremarkable. There is moderate fecal retention and distention of the colon. There is an umbilical hernia containing fat. Arterial calcifications demonstrated within the aorta. No free air identified. Uterus is heterogeneous. There is an enhancing mass in the body of the uterus probably representing a fibroid. The appendix is seen and appears normal. Impression: Prominence of the wall of the pyloric channel, not evaluated well on the current CT examination. The stomach is not distended on this exam. Nevertheless, suggest correlation with EGD. Fatty liver Bilateral renal cysts Small hernia containing fat Atherosclerotic disease. Uterine fibroid Normal appendix Moderate feces The CT scanner at [facility] is accredited by the [employer] and the scans are performed using dose optimization techniques as appropriate to a performed exam including Automatic Exposure control.
[2016-10-14] MEDS: Pantoprazole Inj IVP SCH (09:56)
[2016-10-14 12:00] VITALS: BP 140/80
--- NOTE | 2016-10-14 12:36 | Infectious Diseases Prog Note ---
Assessment/Plan Assessment/Plan ASSESSMENT: 1) ruled out for diverticulitis CT negative for diverticulitis Stool studies so far negative: C diff pcr, stool cx. serum H pylori IgG negative. 2) ruled out for UTI 3) no h/o MDR GNR pathogens 4) mild dehydration 5) afebrile, no leukocytosis, exam reassuring 6) normal lipase, nl LFTs, nl LDH, no metabolic derangements 7) borderline elevated CA19-9 8) MRCP with mild biliary ductal dilatation but no choledocholithiasis, no cholecystitis, no pneumobilia 9) stool C diff negative 10) mild dehydration no active infection. macrocytosis, anemia hypothyroid, subtherapeutic on armour thyroid h/o IBS borderline leukopenia, probably chronic and normal variant PLAN: -d/c cipro and flagyl now, s/p D#4 of abx. (10/11) s/p D#2 zosyn - f/u H pylori serology -GI evaluation in process, s/p reassuring MRCP, CT negative for acute diverticulitis -monitor clinically Subjective Constitutional: Reports: no symptoms Gastrointestinal/Abdominal: Reports: bloating, diarrhea Allergies: Coded Allergies: ERYTHROMYCIN BASE (Unverified Allergy, Unknown, 09/17/14) Objective Vital Signs Last 24 Hour Vital Signs Date Time Temp Pulse Resp B/P Pulse Ox O2 Delivery O2 Flow Rate FiO2 10/14/16 12:00 97.5 89 19 140/80 99 Room Air 10/14/16 08:00 97.2 66 19 132/78 100 Room Air 10/14/16 04:00 97.6 66 18 137/79 99 Room Air 10/14/16 00:00 97.9 71 18 105/65 94 Room Air 10/13/16 20:00 97.3 72 18 118/75 100 Room Air 10/13/16 15:50 96.8 78 20 114/59 99 Room Air Height (Feet): 5 Height (Inches): 2.00 Weight (Pounds): 100 Objective GEN: awake, alert, non toxic appearing, thin HEENT: Mild pale conjunctiva. oral mucosa dry, pharynx w/o exudate or effusion. No icterus. Head normocephalic, neck supple. NECK: No cervical LAD CHEST: Clear to auscultation bilaterally. HEART: S1 and S2, no murmurs, no rubs. ABDOMEN: soft, non tender, non distended, normoactive bowel sounds. no epigastric mass palpated. umbilical abd hernia, not tender, reducible. EXTREMITIES: No cyanosis, no clubbing, no edema. NEUROLOGIC: Awake, alert, no focal neurologic motor deficits. : wnl LYMPH: no LAD RECTAL: deferred Microbiology Date/Time Source Procedure Growth Status 10/12/16 14:44 Stool Stool Culture - Preliminary NORMAL FECAL SHARITA. Resulted 10/12/16 14:44 Stool Clostridium difficile Toxin Assay - Final Complete 10/12/16 01:30 Urine,Clean Catch Urine Culture - Preliminary NO GROWTH AFTER 24 HOURS Resulted Laboratory Tests Test 10/13/16 20:00 10/14/16 06:00 Stool Fat Screen Pending White Blood Count 3.5 K/UL (4.8-10.8) L Red Blood Count 3.46 M/UL (4.20-5.40) L Hemoglobin 11.9 G/DL (12.0-16.0) L Hematocrit 35.9 % (37.0-47.0) L Mean Corpuscular Volume 104 FL (80-99) H Mean Corpuscular Hemoglobin 34.3 PG (27.0-31.0) H Mean Corpuscular Hemoglobin Concent 33.1 G/DL (32.0-36.0) Red Cell Distribution Width 11.2 % (11.6-14.8) L Platelet Count 220 K/UL (150-450) Mean Platelet Volume 6.9 FL (6.5-10.1) Neutrophils (%) (Auto) 55.9 % (45.0-75.0) Lymphocytes (%) (Auto) 32.5 % (20.0-45.0) Monocytes (%) (Auto) 8.9 % (1.0-10.0) Eosinophils (%) (Auto) 1.7 % (0.0-3.0) Basophils (%) (Auto) 0.9 % (0.0-2.0) Sodium Level 140 mEQ/L (135-145) Potassium Level 3.9 mEQ/L (3.4-4.9) Chloride Level 104 mEQ/L (98-107) Carbon Dioxide Level 29 mEQ/L (20-30) Anion Gap 7 (5-15) Blood Urea Nitrogen 9 mg/dL (7-23) Creatinine 0.7 mg/dL (0.5-0.9) Estimat Glomerular Filtration Rate mL/min (>60) Glucose Level 104 mg/dL (74-106) Calcium Level 8.6 mg/dL (8.6-10.2) Thyroid Stimulating Hormone (TSH) 5.650 uIU/mL (0.300-4.500) Free Thyroxine 0.92 ng/dL (0.86-1.85) Free Triiodothyronine Pending Total Triiodothyronine 0.91 ng/mL (0.80-2.00) Current Medications Medications (Trade) Dose Ordered Sig/Joy Route PRN Reason Start Time Stop Time Status Last Admin Dose Admin Acetaminophen (Tylenol) 650 mg PRN PRN ORAL For Mild Pain 10/12/16 18:00 11/11/16 17:59 Acetaminophen (Tylenol) 650 mg Q4H PRN ORAL fever 10/11/16 22:15 11/10/16 22:14 Al Hydroxide/Mg Hydroxide (Mylanta II) 30 ml Q6H PRN ORAL dyspepsia 10/12/16 00:15 11/11/16 00:14 Aspirin (Ecotrin) 81 mg DAILY ORAL 10/12/16 09:00 11/11/16 08:59 10/13/16 10:40 Carisoprodol (Soma) 350 mg TIDPRN PRN ORAL MUSCLE SPASM 10/11/16 22:28 11/10/16 22:27 10/12/16 14:06 Chlorhexidine Gluconate (Stacey-Hex 2%) 1 applic DAILY TOPIC 10/13/16 18:00 11/12/16 17:59 Ciprofloxacin (Cipro 500mg tab) 500 mg EVERY 12 HOURS ORAL 10/13/16 21:00 10/17/16 20:59 10/13/16 21:08 Dextrose (Dextrose 50%) STAT PRN IV Hypoglycemia 10/12/16 18:15 11/11/16 18:14 Dextrose/Sodium Chloride (D5 0.45% NS) 1,000 ml @ 75 mls/hr [id number] IV 10/11/16 23:00 11/10/16 22:59 10/14/16 04:59 Diphenhydramine HCl (Benadryl) 25 mg Q6H PRN ORAL Itching/Pruritis 10/12/16 00:15 11/11/16 00:14 Fluoxetine HCl (PROzac) 60 mg DAILY ORAL 10/12/16 09:00 11/11/16 08:59 10/13/16 10:41 Gabapentin (Neurontin) 600 mg Q8HR ORAL 10/12/16 06:00 11/11/16 05:59 10/13/16 15:14 Heparin Sodium (Porcine) (Heparin 5000 units/ml) 5,000 units EVERY 12 HOURS SUBQ 10/12/16 09:00 11/11/16 08:59 10/12/16 21:44 Heparin Sodium/ Sodium Chloride (Heparin 2000 units/Ns 1000ml premix) 2,000 unit ONCE PRN INJ PICC LINE PLACEMENT 10/13/16 12:45 11/12/16 12:44 Loperamide HCl (Imodium) 2 mg Q4H PRN ORAL Diarrhea 10/13/16 12:30 11/12/16 12:29 Lorazepam (Ativan) 1 mg HSPRN PRN ORAL For Anxiety 10/11/16 22:30 10/18/16 22:29 10/13/16 12:28 Metronidazole (Flagyl) 500 mg Q8HR ORAL 10/13/16 22:00 10/17/16 21:59 10/13/16 21:08 Morphine Sulfate (Morphine Sulfate) 2 mg Q4H PRN IVP severe Pain (Pain Scale 7-10) 10/11/16 22:15 10/18/16 22:14 10/14/16 10:01 Nitroglycerin (Ntg) 0.4 mg Q5M X 3 DOSES PRN SL Prn Chest Pain 10/11/16 22:15 11/10/16 22:14 Ondansetron HCl (Zofran) 4 mg Q6H PRN IVP Nausea & Vomiting 10/12/16 00:15 11/11/16 00:14 10/14/16 10:26 Pantoprazole (Protonix) 40 mg DAILY IVP 10/12/16 09:00 11/11/16 08:59 10/14/16 09:56 Polyethylene Glycol (Miralax) 17 gm HSPRN PRN ORAL Constipation 10/12/16 18:15 11/11/16 18:14 Temazepam (Restoril) 15 mg HSPRN PRN ORAL Insomnia 10/11/16 22:31 10/18/16 22:30 Thyroid (Commodore Thyroid) 30 mg ACBREAKFAST ORAL 10/12/16 06:30 11/11/16 06:29 10/14/16 06:37 David Dixon M.D. Oct 14, 2016 12:36
[2016-10-14] MEDS: Aspirin EC 81mg tab ORAL SCH (12:51)
[2016-10-14] MEDS: LORazepam 1mg tab ORAL PRN (13:49)
--- NOTE | 2016-10-14 15:41 | Pulmonology Progress Note ---
Assessment/Plan Assessment/Plan ASSESSMENT abdominal pain possible ileus -ruled out diverticulosis mild dehydration gastritis. gastric polyp. colonic polyp. IBS reducible bilateral inguinal hernias, partially reducible umbilical hernia, hx of [place] fibromyalgia hypothyroidism with elevated TSH PLAN OF CARE [facility] floor IVF low residue diet abdominal X ray with possible focal ileus surgery eval noted, no surgical intervention at this time; noted reducible bilateral inguinal hernias, partially reducible umbilical hernia, no evidence of intestinal obstruction surgery signed off the case s/p abx Rx, stool cx negative, urien cx negative, stool c dif negative ID follows CT A/P and MRCP results noted , unremarkable pain management elevated TSH, unable to increase [place] Thyroid dose slightly ( no dosage available at pharmacy) DVT/GI prophylaxis a/emetic prn bowel regimen H pylori serology pending case discussed and evaluated by supervising physician Subjective Allergies: Coded Allergies: ERYTHROMYCIN BASE (Unverified Allergy, Unknown, 09/17/14) Subjective still with intermittent abdominal pain tolerates diet no n/v/ Objective Last 24 Hour Vital Signs Date Time Temp Pulse Resp B/P Pulse Ox O2 Delivery O2 Flow Rate FiO2 10/14/16 12:00 97.5 89 19 140/80 99 Room Air 10/14/16 08:00 97.2 66 19 132/78 100 Room Air 10/14/16 04:00 97.6 66 18 137/79 99 Room Air 10/14/16 00:00 97.9 71 18 105/65 94 Room Air 10/13/16 20:00 97.3 72 18 118/75 100 Room Air 10/13/16 15:50 96.8 78 20 114/59 99 Room Air Intake and Output 10/13/16 10/14/16 19:00 07:00 Intake Total 630 ml 1100 ml Balance 630 ml 1100 ml Intake Oral 480 ml 350 ml IV Total 150 ml 750 ml # Voids 3 3 # Bowel Movements 1 Objective General Appearance: no apparent distress Lines, tubes and drains: peripheral HEENT: normocephalic, atraumatic, anicteric Neck: non-tender, supple Respiratory/Chest: chest wall non-tender, lungs clear Cardiovascular/Chest: normal rate, regular rhythm Abdomen: non tender, soft, hypoactive bowel sounds Extremities: non-tender, no calf tenderness Skin Exam: normal pigmentation, warm/dry Neurologic: alert, responsive Musculoskeletal: normal muscle bulk Microbiology Date/Time Source Procedure Growth Status 10/12/16 14:44 Stool Stool Culture - Preliminary NORMAL FECAL SHARITA. Resulted 10/12/16 14:44 Stool Clostridium difficile Toxin Assay - Final Complete 10/12/16 01:30 Urine,Clean Catch Urine Culture - Preliminary NO GROWTH AFTER 24 HOURS Resulted Laboratory Tests 10/13/16 20:00: Stool Fat Screen [Pending] 10/14/16 06:00: White Blood Count 3.5L, Red Blood Count 3.46L, Hemoglobin 11.9L, Hematocrit 35.9L, Mean Corpuscular Volume 104H, Mean Corpuscular Hemoglobin 34.3H, Mean Corpuscular Hemoglobin Concent 33.1, Red Cell Distribution Width 11.2L, Platelet Count 220, Mean Platelet Volume 6.9, Neutrophils (%) (Auto) 55.9, Lymphocytes (%) (Auto) 32.5, Monocytes (%) (Auto) 8.9, Eosinophils (%) (Auto) 1.7, Basophils (%) (Auto) 0.9, Sodium Level 140, Potassium Level 3.9, Chloride Level 104, Carbon Dioxide Level 29, Anion Gap 7, Blood Urea Nitrogen 9, Creatinine 0.7, Estimat Glomerular Filtration Rate , Glucose Level 104, Calcium Level 8.6, Thyroid Stimulating Hormone (TSH) 5.650H, Free Thyroxine 0.92, Free Triiodothyronine [Pending], Total Triiodothyronine 0.91 Current Medications Medications (Trade) Dose Ordered Sig/Joy Route PRN Reason Start Time Stop Time Status Last Admin Dose Admin Acetaminophen (Tylenol) 650 mg PRN PRN ORAL For Mild Pain 10/12/16 18:00 11/11/16 17:59 Acetaminophen (Tylenol) 650 mg Q4H PRN ORAL fever 10/11/16 22:15 11/10/16 22:14 Al Hydroxide/Mg Hydroxide (Mylanta II) 30 ml Q6H PRN ORAL dyspepsia 10/12/16 00:15 11/11/16 00:14 Aspirin (Ecotrin) 81 mg DAILY ORAL 10/12/16 09:00 11/11/16 08:59 10/14/16 12:51 Carisoprodol (Soma) 350 mg TIDPRN PRN ORAL MUSCLE SPASM 10/11/16 22:28 11/10/16 22:27 10/12/16 14:06 Chlorhexidine Gluconate (Stacey-Hex 2%) 1 applic DAILY TOPIC 10/13/16 18:00 11/12/16 17:59 Dextrose (Dextrose 50%) STAT PRN IV Hypoglycemia 10/12/16 18:15 11/11/16 18:14 Dextrose/Sodium Chloride (D5 0.45% NS) 1,000 ml @ 75 mls/hr [id number] IV 10/11/16 23:00 11/10/16 22:59 10/14/16 04:59 Diphenhydramine HCl (Benadryl) 25 mg Q6H PRN ORAL Itching/Pruritis 10/12/16 00:15 11/11/16 00:14 Fluoxetine HCl (PROzac) 60 mg DAILY ORAL 10/12/16 09:00 11/11/16 08:59 10/14/16 12:49 Gabapentin (Neurontin) 600 mg Q8HR ORAL 10/12/16 06:00 11/11/16 05:59 10/14/16 14:47 Heparin Sodium (Porcine) (Heparin 5000 units/ml) 5,000 units EVERY 12 HOURS SUBQ 10/12/16 09:00 11/11/16 08:59 10/12/16 21:44 Heparin Sodium/ Sodium Chloride (Heparin 2000 units/Ns 1000ml premix) 2,000 unit ONCE PRN INJ PICC LINE PLACEMENT 10/13/16 12:45 11/12/16 12:44 Loperamide HCl (Imodium) 2 mg Q4H PRN ORAL Diarrhea 10/13/16 12:30 11/12/16 12:29 Lorazepam (Ativan) 1 mg HSPRN PRN ORAL For Anxiety 10/11/16 22:30 10/18/16 22:29 10/14/16 13:49 Metronidazole (Flagyl) 500 mg Q8HR ORAL 10/13/16 22:00 10/17/16 21:59 10/14/16 14:46 Morphine Sulfate (Morphine Sulfate) 2 mg Q4H PRN IVP severe Pain (Pain Scale 7-10) 10/11/16 22:15 10/18/16 22:14 10/14/16 10:01 Nitroglycerin (Ntg) 0.4 mg Q5M X 3 DOSES PRN SL Prn Chest Pain 10/11/16 22:15 11/10/16 22:14 Ondansetron HCl (Zofran) 4 mg Q6H PRN IVP Nausea & Vomiting 10/12/16 00:15 11/11/16 00:14 10/14/16 10:26 Pantoprazole (Protonix) 40 mg DAILY IVP 10/12/16 09:00 11/11/16 08:59 10/14/16 09:56 Polyethylene Glycol (Miralax) 17 gm HSPRN PRN ORAL Constipation 10/12/16 18:15 11/11/16 18:14 Temazepam (Restoril) 15 mg HSPRN PRN ORAL Insomnia 10/11/16 22:31 10/18/16 22:30 Thyroid ([place] Thyroid) 30 mg ACBREAKFAST ORAL 10/12/16 06:30 11/11/16 06:29 10/14/16 06:37 [place] ([facility])Gracie NP Oct 14, 2016 15:41
--- NOTE | 2016-10-14 15:55 | GI Progress Note ---
Assessment/Plan Problems: (1) Nausea ICD Codes: R11.0 - Nausea SNOMED: 083975025 (2) Epigastric abdominal pain ICD Codes: R10.13 - Epigastric pain SNOMED: 67822633 (3) Diarrhea ICD Codes: R19.7 - Diarrhea, unspecified SNOMED: 95403332 (4) Irritable bowel syndrome ICD Codes: K58.9 - Irritable bowel syndrome without diarrhea SNOMED: 97675415 (5) Ileus ICD Codes: K56.7 - Ileus, unspecified SNOMED: 929967008 (6) Abdominal pain ICD Codes: R10.9 - Unspecified abdominal pain SNOMED: 34428175 Qualifiers: Qualified Codes: R10.9 - Unspecified abdominal pain (7) Abdominal pain of unknown etiology ICD Codes: R10.9 - Unspecified abdominal pain SNOMED: 391542462 Status: stable, unchanged Status Narrative Discussed with Dr. Green. Assessment/Plan S/P recent EGD/colonoscopy @ [facility] 1. Weight loss. 2. Diverticulosis. 3. Gastritis. 4. Gastric polyp. 5. Colonic polyp. 6. Fibromyalgia. 7. IBS. 8. Uterine fibroids. 9. Hypothyroidism MRCP reviewed >> Some prominence of the biliary ducts. No evidence of choledocholithiasis. CT AP reviewed >> Prominence of the wall of the pyloric channel, not evaluated well on the current CT examination. cdiff negative stool culture negative lipase unremarkable CA19-9 mild elevation EGD/EUS scheduled for tomorrow. - diet, NPO @ [place]. - hold all blood thinners tonight fu stool fat fu CT fu H. Pylori pain control Imodium prn The patient was seen and examined at bedside and all new and available data was reviewed in the patients chart. I agree with the above findings, impression and plan. (Patient seen earlier today. Signature stamp does not reflect patient encounter time.). -Aramis Green MD Subjective Subjective abdominal pain not resolved ambulating explosive diarrhea refuses to take take Imodium Objective Last 24 Hour Vital Signs Date Time Temp Pulse Resp B/P Pulse Ox O2 Delivery O2 Flow Rate FiO2 10/14/16 12:00 97.5 89 19 140/80 99 Room Air 10/14/16 08:00 97.2 66 19 132/78 100 Room Air 10/14/16 04:00 97.6 66 18 137/79 99 Room Air 10/14/16 00:00 97.9 71 18 105/65 94 Room Air 10/13/16 20:00 97.3 72 18 118/75 100 Room Air Intake and Output 10/13/16 10/14/16 19:00 07:00 Intake Total 630 ml 1100 ml Balance 630 ml 1100 ml Intake Oral 480 ml 350 ml IV Total 150 ml 750 ml # Voids 3 3 # Bowel Movements 1 Laboratory Tests Test 10/13/16 20:00 10/14/16 06:00 Stool Fat Screen Pending White Blood Count 3.5 K/UL (4.8-10.8) L Red Blood Count 3.46 M/UL (4.20-5.40) L Hemoglobin 11.9 G/DL (12.0-16.0) L Hematocrit 35.9 % (37.0-47.0) L Mean Corpuscular Volume 104 FL (80-99) H Mean Corpuscular Hemoglobin 34.3 PG (27.0-31.0) H Mean Corpuscular Hemoglobin Concent 33.1 G/DL (32.0-36.0) Red Cell Distribution Width 11.2 % (11.6-14.8) L Platelet Count 220 K/UL (150-450) Mean Platelet Volume 6.9 FL (6.5-10.1) Neutrophils (%) (Auto) 55.9 % (45.0-75.0) Lymphocytes (%) (Auto) 32.5 % (20.0-45.0) Monocytes (%) (Auto) 8.9 % (1.0-10.0) Eosinophils (%) (Auto) 1.7 % (0.0-3.0) Basophils (%) (Auto) 0.9 % (0.0-2.0) Sodium Level 140 mEQ/L (135-145) Potassium Level 3.9 mEQ/L (3.4-4.9) Chloride Level 104 mEQ/L (98-107) Carbon Dioxide Level 29 mEQ/L (20-30) Anion Gap 7 (5-15) Blood Urea Nitrogen 9 mg/dL (7-23) Creatinine 0.7 mg/dL (0.5-0.9) Estimat Glomerular Filtration Rate mL/min (>60) Glucose Level 104 mg/dL (74-106) Calcium Level 8.6 mg/dL (8.6-10.2) Thyroid Stimulating Hormone (TSH) 5.650 uIU/mL (0.300-4.500) Free Thyroxine 0.92 ng/dL (0.86-1.85) Free Triiodothyronine Pending Total Triiodothyronine 0.91 ng/mL (0.80-2.00) Height (Feet): 5 Height (Inches): 2.00 Weight (Pounds): 100 General Appearance: no apparent distress, alert Cardiovascular: normal rate Respiratory/Chest: normal breath sounds, no respiratory distress Abdominal Exam: normal bowel sounds, non tender, soft Extremities: normal range of motion Felicita Melton N.P. Oct 14, 2016 15:55 ARAMIS GREEN Oct 15, 2016 10:51
[2016-10-14 16:00] VITALS: BP 111/57
--- NOTE | 2016-10-14 17:01 | Internal Med Progress Note ---
Subjective Date of Service: Oct 14, 2016 Physician Name EdwardsJose neil Attending Physician Balbir Truong MD Current Medications Medications (Trade) Dose Ordered Sig/Joy Route PRN Reason Start Time Stop Time Status Last Admin Dose Admin Acetaminophen (Tylenol) 650 mg PRN PRN ORAL For Mild Pain 10/12/16 18:00 11/11/16 17:59 Acetaminophen (Tylenol) 650 mg Q4H PRN ORAL fever 10/11/16 22:15 11/10/16 22:14 Al Hydroxide/Mg Hydroxide (Mylanta II) 30 ml Q6H PRN ORAL dyspepsia 10/12/16 00:15 11/11/16 00:14 Aspirin (Ecotrin) 81 mg DAILY ORAL 10/12/16 09:00 11/11/16 08:59 10/14/16 12:51 Carisoprodol (Soma) 350 mg TIDPRN PRN ORAL MUSCLE SPASM 10/11/16 22:28 11/10/16 22:27 10/12/16 14:06 Chlorhexidine Gluconate (Stacey-Hex 2%) 1 applic DAILY TOPIC 10/13/16 18:00 11/12/16 17:59 Dextrose (Dextrose 50%) STAT PRN IV Hypoglycemia 10/12/16 18:15 11/11/16 18:14 Dextrose/Sodium Chloride (D5 0.45% NS) 1,000 ml @ 75 mls/hr [id number] IV 10/11/16 23:00 11/10/16 22:59 10/14/16 04:59 Diphenhydramine HCl (Benadryl) 25 mg Q6H PRN ORAL Itching/Pruritis 10/12/16 00:15 11/11/16 00:14 Fluoxetine HCl (PROzac) 60 mg DAILY ORAL 10/12/16 09:00 11/11/16 08:59 10/14/16 12:49 Gabapentin (Neurontin) 600 mg Q8HR ORAL 10/12/16 06:00 11/11/16 05:59 10/14/16 14:47 Heparin Sodium (Porcine) (Heparin 5000 units/ml) 5,000 units EVERY 12 HOURS SUBQ 10/12/16 09:00 11/11/16 08:59 10/12/16 21:44 Heparin Sodium/ Sodium Chloride (Heparin 2000 units/Ns 1000ml premix) 2,000 unit ONCE PRN INJ PICC LINE PLACEMENT 10/13/16 12:45 11/12/16 12:44 Loperamide HCl (Imodium) 2 mg Q4H PRN ORAL Diarrhea 10/13/16 12:30 11/12/16 12:29 Lorazepam (Ativan) 1 mg HSPRN PRN ORAL For Anxiety 10/11/16 22:30 10/18/16 22:29 10/14/16 13:49 Metronidazole (Flagyl) 500 mg Q8HR ORAL 10/13/16 22:00 10/17/16 21:59 10/14/16 14:46 Morphine Sulfate (Morphine Sulfate) 2 mg Q4H PRN IVP severe Pain (Pain Scale 7-10) 10/11/16 22:15 10/18/16 22:14 10/14/16 10:01 Nitroglycerin (Ntg) 0.4 mg Q5M X 3 DOSES PRN SL Prn Chest Pain 10/11/16 22:15 11/10/16 22:14 Ondansetron HCl (Zofran) 4 mg Q6H PRN IVP Nausea & Vomiting 10/12/16 00:15 11/11/16 00:14 10/14/16 10:26 Pantoprazole (Protonix) 40 mg DAILY IVP 10/12/16 09:00 11/11/16 08:59 10/14/16 09:56 Polyethylene Glycol (Miralax) 17 gm HSPRN PRN ORAL Constipation 10/12/16 18:15 11/11/16 18:14 Temazepam (Restoril) 15 mg HSPRN PRN ORAL Insomnia 10/11/16 22:31 10/18/16 22:30 Thyroid ([place] Thyroid) 30 mg ACBREAKFAST ORAL 10/12/16 06:30 11/11/16 06:29 10/14/16 06:37 Allergies: Coded Allergies: ERYTHROMYCIN BASE (Unverified Allergy, Unknown, 09/17/14) ROS Limited/Unobtainable: No Subjective 76 YO F admitted with epigastric pain and diarrhea. Await endoscopy 10/15/16. Cover for Int Florentino-Dr Truong Objective Last Vital Signs Date Time Temp Pulse Resp B/P Pulse Ox O2 Delivery O2 Flow Rate FiO2 10/14/16 16:00 98.2 79 17 111/57 99 Room Air Laboratory Tests Test 10/13/16 20:00 10/14/16 06:00 Stool Fat Screen Pending White Blood Count 3.5 K/UL (4.8-10.8) L Red Blood Count 3.46 M/UL (4.20-5.40) L Hemoglobin 11.9 G/DL (12.0-16.0) L Hematocrit 35.9 % (37.0-47.0) L Mean Corpuscular Volume 104 FL (80-99) H Mean Corpuscular Hemoglobin 34.3 PG (27.0-31.0) H Mean Corpuscular Hemoglobin Concent 33.1 G/DL (32.0-36.0) Red Cell Distribution Width 11.2 % (11.6-14.8) L Platelet Count 220 K/UL (150-450) Mean Platelet Volume 6.9 FL (6.5-10.1) Neutrophils (%) (Auto) 55.9 % (45.0-75.0) Lymphocytes (%) (Auto) 32.5 % (20.0-45.0) Monocytes (%) (Auto) 8.9 % (1.0-10.0) Eosinophils (%) (Auto) 1.7 % (0.0-3.0) Basophils (%) (Auto) 0.9 % (0.0-2.0) Sodium Level 140 mEQ/L (135-145) Potassium Level 3.9 mEQ/L (3.4-4.9) Chloride Level 104 mEQ/L (98-107) Carbon Dioxide Level 29 mEQ/L (20-30) Anion Gap 7 (5-15) Blood Urea Nitrogen 9 mg/dL (7-23) Creatinine 0.7 mg/dL (0.5-0.9) Estimat Glomerular Filtration Rate mL/min (>60) Glucose Level 104 mg/dL (74-106) Calcium Level 8.6 mg/dL (8.6-10.2) Thyroid Stimulating Hormone (TSH) 5.650 uIU/mL (0.300-4.500) Free Thyroxine 0.92 ng/dL (0.86-1.85) Free Triiodothyronine Pending Total Triiodothyronine 0.91 ng/mL (0.80-2.00) Microbiology Date/Time Source Procedure Growth Status 10/12/16 14:44 Stool Stool Culture - Preliminary NORMAL FECAL SHARITA. Resulted 10/12/16 14:44 Stool Clostridium difficile Toxin Assay - Final Complete 10/12/16 01:30 Urine,Clean Catch Urine Culture - Preliminary NO GROWTH AFTER 24 HOURS Resulted Intake and Output 10/13/16 10/14/16 19:00 07:00 Intake Total 630 ml 1100 ml Balance 630 ml 1100 ml Intake Oral 480 ml 350 ml IV Total 150 ml 750 ml # Voids 3 3 # Bowel Movements 1 Objective General Appearance: WD/WN, no apparent distress, alert EENT: PERRL/EOMI, normal ENT inspection Neck: non-tender, normal alignment, supple, normal inspection Cardiovascular: normal peripheral pulses, normal rate, regular rhythm, no gallop/murmur, no JVD Respiratory/Chest: chest wall non-tender, lungs clear, normal breath sounds, no respiratory distress, no accessory muscle use Abdomen: no organomegaly, no mass, decreased bowel sounds, guarding, tender Extremities: normal range of motion, non-tender 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 Await endoscopy on 10/15/16. (2) Diarrhea Assessment & Plan: Await stool culture results. (3) Nausea (4) Reflex sympathetic dystrophy (5) Hypothyroidism Assessment & Plan: Cont synthroid. (6) Fibromyalgia (7) Irritable bowel syndrome Assessment & Plan: see GI Note (8) Degenerative cervical disc Status: not improved Assessment/Plan Discharge planning: home health JOSE EDWARDS Oct 14, 2016 17:01
[2016-10-14 20:00] VITALS: BP 102/76
[2016-10-15] VITALS (11 sets, daily range): BP systolic 90–145; BP diastolic 55–84
[2016-10-15] MEDS: Morphine Sulfate 2mg/ml Inj IVP PRN (03:57)
[2016-10-15] MEDS: D5 1/2NS 1,000 ML IV SCH ×2 (05:12→20:02)
--- NOTE | 2016-10-15 05:15 | Infectious Diseases Prog Note ---
Assessment/Plan Assessment/Plan ASSESSMENT: acute on chronic abd pain, subacute diarrhea 1) ruled out for diverticulitis CT negative for diverticulitis Stool studies so far negative: C diff pcr, stool cx. serum H pylori IgG negative. 2) ruled out for UTI 3) no h/o MDR GNR pathogens 4) mild dehydration 5) afebrile, no leukocytosis, exam reassuring 6) normal lipase, nl LFTs, nl LDH, no metabolic derangements 7) borderline elevated CA19-9 8) MRCP with mild biliary ductal dilatation but no choledocholithiasis, no cholecystitis, no pneumobilia 9) stool C diff negative 10) mild dehydration no active infection. macrocytosis, anemia hypothyroid, subtherapeutic on armour thyroid h/o IBS borderline leukopenia, probably chronic and normal variant PLAN: -monitor off abx - (10/14) s/p cipro/flagyl D#4 of abx cipro and flagyl (10/11) s/p D#2 zosyn - f/u H pylori serology - stool O&P -GI evaluation in process pending EGD/EUS, s/p reassuring MRCP, CT negative for acute diverticulitis -monitor clinically Subjective Constitutional: Reports: no symptoms Gastrointestinal/Abdominal: Reports: bloating, diarrhea Allergies: Coded Allergies: ERYTHROMYCIN BASE (Unverified Allergy, Unknown, 09/17/14) Objective Vital Signs Last 24 Hour Vital Signs Date Time Temp Pulse Resp B/P Pulse Ox O2 Delivery O2 Flow Rate FiO2 10/15/16 04:00 97.7 81 21 114/84 100 Room Air 10/15/16 00:00 97.7 79 20 113/58 99 Room Air 10/14/16 20:00 97.7 82 20 102/76 99 Room Air 10/14/16 16:00 98.2 79 17 111/57 99 Room Air 10/14/16 12:00 97.5 89 19 140/80 99 Room Air 10/14/16 08:00 97.2 66 19 132/78 100 Room Air Height (Feet): 5 Height (Inches): 5.00 Weight (Pounds): 100 Objective GEN: awake, alert, non toxic appearing, thin HEENT: Mild pale conjunctiva. oral mucosa dry, pharynx w/o exudate or effusion. No icterus. Head normocephalic, neck supple. NECK: No cervical LAD CHEST: Clear to auscultation bilaterally. HEART: S1 and S2, no murmurs, no rubs. ABDOMEN: soft, non tender, non distended, normoactive bowel sounds. no epigastric mass palpated. umbilical abd hernia, not tender, reducible. EXTREMITIES: No cyanosis, no clubbing, no edema. NEUROLOGIC: Awake, alert, no focal neurologic motor deficits. : wnl LYMPH: no LAD RECTAL: deferred Microbiology Date/Time Source Procedure Growth Status 10/12/16 14:44 Stool Stool Culture - Preliminary NORMAL FECAL SHARITA. Resulted 10/12/16 14:44 Stool Clostridium difficile Toxin Assay - Final Complete Laboratory Tests Test 10/14/16 06:00 White Blood Count 3.5 K/UL (4.8-10.8) L Red Blood Count 3.46 M/UL (4.20-5.40) L Hemoglobin 11.9 G/DL (12.0-16.0) L Hematocrit 35.9 % (37.0-47.0) L Mean Corpuscular Volume 104 FL (80-99) H Mean Corpuscular Hemoglobin 34.3 PG (27.0-31.0) H Mean Corpuscular Hemoglobin Concent 33.1 G/DL (32.0-36.0) Red Cell Distribution Width 11.2 % (11.6-14.8) L Platelet Count 220 K/UL (150-450) Mean Platelet Volume 6.9 FL (6.5-10.1) Neutrophils (%) (Auto) 55.9 % (45.0-75.0) Lymphocytes (%) (Auto) 32.5 % (20.0-45.0) Monocytes (%) (Auto) 8.9 % (1.0-10.0) Eosinophils (%) (Auto) 1.7 % (0.0-3.0) Basophils (%) (Auto) 0.9 % (0.0-2.0) Sodium Level 140 mEQ/L (135-145) Potassium Level 3.9 mEQ/L (3.4-4.9) Chloride Level 104 mEQ/L (98-107) Carbon Dioxide Level 29 mEQ/L (20-30) Anion Gap 7 (5-15) Blood Urea Nitrogen 9 mg/dL (7-23) Creatinine 0.7 mg/dL (0.5-0.9) Estimat Glomerular Filtration Rate mL/min (>60) Glucose Level 104 mg/dL (74-106) Calcium Level 8.6 mg/dL (8.6-10.2) Thyroid Stimulating Hormone (TSH) 5.650 uIU/mL (0.300-4.500) Free Thyroxine 0.92 ng/dL (0.86-1.85) Free Triiodothyronine Pending Total Triiodothyronine 0.91 ng/mL (0.80-2.00) Current Medications Medications (Trade) Dose Ordered Sig/Joy Route PRN Reason Start Time Stop Time Status Last Admin Dose Admin Acetaminophen (Tylenol) 650 mg PRN PRN ORAL For Mild Pain 10/12/16 18:00 11/11/16 17:59 Acetaminophen (Tylenol) 650 mg Q4H PRN ORAL fever 10/11/16 22:15 11/10/16 22:14 Al Hydroxide/Mg Hydroxide (Mylanta II) 30 ml Q6H PRN ORAL dyspepsia 10/12/16 00:15 11/11/16 00:14 Aspirin (Ecotrin) 81 mg DAILY ORAL 10/12/16 09:00 11/11/16 08:59 10/14/16 12:51 Carisoprodol (Soma) 350 mg TIDPRN PRN ORAL MUSCLE SPASM 10/11/16 22:28 11/10/16 22:27 10/12/16 14:06 Chlorhexidine Gluconate (Stacey-Hex 2%) 1 applic DAILY TOPIC 10/13/16 18:00 11/12/16 17:59 Dextrose (Dextrose 50%) STAT PRN IV Hypoglycemia 10/12/16 18:15 11/11/16 18:14 Dextrose/Sodium Chloride (D5 0.45% NS) 1,000 ml @ 75 mls/hr [id number] IV 10/11/16 23:00 11/10/16 22:59 10/14/16 19:10 Diphenhydramine HCl (Benadryl) 25 mg Q6H PRN ORAL Itching/Pruritis 10/12/16 00:15 11/11/16 00:14 Fluoxetine HCl (PROzac) 60 mg DAILY ORAL 10/12/16 09:00 11/11/16 08:59 10/14/16 12:49 Gabapentin (Neurontin) 600 mg Q8HR ORAL 10/12/16 06:00 11/11/16 05:59 10/14/16 21:32 Heparin Sodium (Porcine) (Heparin 5000 units/ml) 5,000 units EVERY 12 HOURS SUBQ 10/12/16 09:00 11/11/16 08:59 10/12/16 21:44 Heparin Sodium/ Sodium Chloride (Heparin 2000 units/Ns 1000ml premix) 2,000 unit ONCE PRN INJ PICC LINE PLACEMENT 10/13/16 12:45 11/12/16 12:44 Loperamide HCl (Imodium) 2 mg Q4H PRN ORAL Diarrhea 10/13/16 12:30 11/12/16 12:29 Lorazepam (Ativan) 1 mg HSPRN PRN ORAL For Anxiety 10/11/16 22:30 10/18/16 22:29 10/14/16 13:49 Metronidazole (Flagyl) 500 mg Q8HR ORAL 10/13/16 22:00 10/17/16 21:59 10/14/16 21:32 Morphine Sulfate (Morphine Sulfate) 2 mg Q4H PRN IVP severe Pain (Pain Scale 7-10) 10/11/16 22:15 10/18/16 22:14 10/15/16 03:57 Nitroglycerin (Ntg) 0.4 mg Q5M X 3 DOSES PRN SL Prn Chest Pain 10/11/16 22:15 11/10/16 22:14 Ondansetron HCl (Zofran) 4 mg Q6H PRN IVP Nausea & Vomiting 10/12/16 00:15 11/11/16 00:14 10/15/16 03:56 Pantoprazole (Protonix) 40 mg DAILY IVP 10/12/16 09:00 11/11/16 08:59 10/14/16 09:56 Polyethylene Glycol (Miralax) 17 gm HSPRN PRN ORAL Constipation 10/12/16 18:15 11/11/16 18:14 Temazepam (Restoril) 15 mg HSPRN PRN ORAL Insomnia 10/11/16 22:31 10/18/16 22:30 Thyroid ([place] Thyroid) 30 mg ACBREAKFAST ORAL 10/12/16 06:30 11/11/16 06:29 10/14/16 06:37 David Dixon M.D. Oct 15, 2016 05:15
[2016-10-15 07:07] LABS: BASOPHILS % (AUTO) 1.1 % (0.0-2.0); EOSINOPHILS % (AUTO) 1.3 % (0.0-3.0); LYMPHOCYTES % (AUTO) 26.5 % (20.0-45.0); MEAN CORPUSCULAR HEMOGLOBIN 34.3 PG (27.0-31.0); MEAN CORPUSCULAR HGB CONC 32.8 G/DL (32.0-36.0); MEAN CORPUSCULAR VOLUME 105 FL (80-99); MEAN PLATELET VOLUME 6.8 FL (6.5-10.1); MONOCYTES % (AUTO) 4.4 % (1.0-10.0); NEUTROPHILS % (AUTO) 66.8 % (45.0-75.0); PLATELET COUNT 238 K/UL (150-450); RED BLOOD COUNT 3.77 M/UL (4.20-5.40); RED CELL DISTRIBUTION WIDTH 11.8 % (11.6-14.8); WHITE BLOOD COUNT 4.8 K/UL (4.8-10.8)
[2016-10-15 07:11] LABS: PROTHROMBIN TIME 10.1 SEC (9.30-11.50)
[2016-10-15 07:29] LABS: ANION GAP 11 (5-15); CALCIUM 8.7 mg/dL (8.6-10.2); CARBON DIOXIDE 26 mEQ/L (20-30); CHLORIDE 105 mEQ/L (98-107); CREATININE 0.7 mg/dL (0.5-0.9); HEMOLYSIS 8; POTASSIUM 4.3 mEQ/L (3.4-4.9); SODIUM 142 mEQ/L (135-145)
[2016-10-15] MEDS: Heparin 5000 units/ml inj SUBQ SCH ×2 (09:00→21:00)
[2016-10-15] MEDS: Aspirin EC 81mg tab ORAL SCH (09:00)
[2016-10-15] MEDS: LORazepam 1mg tab ORAL PRN (09:04)
[2016-10-15] MEDS: Dyna-Hex 2% Top Sol 8oz TOPIC SCH (09:05)
[2016-10-15] MEDS: Pantoprazole Inj IVP SCH (09:17)
--- NOTE | 2016-10-15 12:43 | Pre-Procedure Note/Attestation ---
Pre-Procedure Note/Attestation Complete Prior to Procedure Planned Procedure: not applicable Procedure Narrative: eus Indications for Procedure Pre-Operative Diagnosis: dilated hepatic ducts Attestation I attest that I discussed the nature of the procedure; its benefits; risks and complications; and alternatives (and the risks and benefits of such alternatives ), prior to the procedure, with the patient (or the patient's legal sales representative meats). I attest that, if there was a reasonable possibility of needing a blood transfusion, the patient (or the patient's legal sales representative meats) was given the [facility] standardized written summary, pursuant to the [place] [place] Blood Safety Act ([place] Health and Safety Code # 1645, as amended). I attest that I re-evaluated the patient just prior to the surgery and that there has been no change in the patient's H&P, except as documented below: TOM HENDERSON Oct 15, 2016 12:43
[2016-10-15] MEDS ORDERED: Lidocaine 1% MPF 10mg/ml 5ml ONE (13:00)
[2016-10-15] MEDS ORDERED: Propofol 10mg/ml 20ml IV ONE (13:00)
[2016-10-15] MEDS ORDERED: NS 550ML IV ONE (13:25)
--- NOTE | 2016-10-15 13:32 | Anethesia Preoperative Eval ---
Anesthesia Pre-op PMH/ROS General Date of Evaluation: Oct 15, 2016 Time of Evaluation: 13:15 Anesthesiologist: vane/andrew ASA Score: ASA 3 Mallampati Score Class I : Soft palate, uvula, fauces, pillars visible Class II: Soft palate, uvula, fauces visible Class III: Soft palate, base of uvula visible Class IV: Only hard plate visible Mallampati Classification: Class II Surgeon: christina Diagnosis: abdominal pain Surgical Procedure: EUS Anesthesia History: none Family History: no anesthesia problems Allergies: Coded Allergies: ERYTHROMYCIN BASE (Unverified Allergy, Unknown, 09/17/14) Medications: see eMAR Past Medical History Cardiovascular: Denies: CAD, HTN, [place], arrhythmia, other, valve dz Pulmonary: Denies: COPD, ENMANUEL, asthma, other Gastrointestinal/Genitourinary: Reports: other - IBS, diarrhea, Neurologic/Psychiatric: Reports: depression/anxiety Endocrine: Reports: hypothyroidism Hematology/Immune: Denies: DVT, anemia, bleeding disorder, other Musculoskeletal/Integumentary: Reports: other - DCD, fibrmyalgia, RSD Anesthesia Pre-op Phys. Exam Physician Exam Last Vital Signs Date Time Temp Pulse Resp B/P Pulse Ox O2 Delivery O2 Flow Rate FiO2 10/15/16 12:30 97.4 66 18 101/61 99 Room Air Constitutional: NAD Neurologic: CN 2-12 intact Cardiovascular: RRR Respiratory: CTA Gastrointestinal: S/NT/ND Airway Exam Mallampati Score: Class III MO: full ROM: full Teeth: missing Dentures: lower, upper Anesthesia Pre-op A/P Labs Hematology Test 10/15/16 06:35 White Blood Count 4.8 K/UL (4.8-10.8) Red Blood Count 3.77 M/UL (4.20-5.40) L Hemoglobin 13.0 G/DL (12.0-16.0) Hematocrit 39.4 % (37.0-47.0) Mean Corpuscular Volume 105 FL (80-99) H Mean Corpuscular Hemoglobin 34.3 PG (27.0-31.0) H Mean Corpuscular Hemoglobin Concent 32.8 G/DL (32.0-36.0) Red Cell Distribution Width 11.8 % (11.6-14.8) Platelet Count 238 K/UL (150-450) Mean Platelet Volume 6.8 FL (6.5-10.1) Neutrophils (%) (Auto) 66.8 % (45.0-75.0) Lymphocytes (%) (Auto) 26.5 % (20.0-45.0) Monocytes (%) (Auto) 4.4 % (1.0-10.0) Eosinophils (%) (Auto) 1.3 % (0.0-3.0) Basophils (%) (Auto) 1.1 % (0.0-2.0) Coagulation Test 10/15/16 06:35 Prothrombin Time 10.1 SEC (9.30-11.50) Prothromb Time International Ratio 1.0 (0.9-1.1) Activated Partial Thromboplast Time 25 SEC (23-33) Chemistry Test 10/15/16 06:35 Sodium Level 142 mEQ/L (135-145) Potassium Level 4.3 mEQ/L (3.4-4.9) Chloride Level 105 mEQ/L (98-107) Carbon Dioxide Level 26 mEQ/L (20-30) Anion Gap 11 (5-15) Blood Urea Nitrogen 8 mg/dL (7-23) Creatinine 0.7 mg/dL (0.5-0.9) Estimat Glomerular Filtration Rate mL/min (>60) Glucose Level 91 mg/dL (74-106) Calcium Level 8.7 mg/dL (8.6-10.2) Studies Pre-op Studies: EKG - nsr Risk Assessment & Plan Status Change Before Surgery: No Pre-Antibiotics Given Within 1 Hr of Incision: Lucy Cardozo CRNA Oct 15, 2016 13:32
--- NOTE | 2016-10-15 13:36 | Internal Med Progress Note ---
Subjective Date of Service: Oct 15, 2016 Physician Name EdwardsJose neil Attending Physician Balbir Truong MD Current Medications Medications (Trade) Dose Ordered Sig/Joy Route PRN Reason Start Time Stop Time Status Last Admin Dose Admin Acetaminophen (Tylenol) 650 mg PRN PRN ORAL For Mild Pain 10/12/16 18:00 11/11/16 17:59 Acetaminophen (Tylenol) 650 mg Q4H PRN ORAL fever 10/11/16 22:15 11/10/16 22:14 Al Hydroxide/Mg Hydroxide (Mylanta II) 30 ml Q6H PRN ORAL dyspepsia 10/12/16 00:15 11/11/16 00:14 Aspirin (Ecotrin) 81 mg DAILY ORAL 10/12/16 09:00 11/11/16 08:59 10/14/16 12:51 Carisoprodol (Soma) 350 mg TIDPRN PRN ORAL MUSCLE SPASM 10/11/16 22:28 11/10/16 22:27 10/12/16 14:06 Chlorhexidine Gluconate (Stacey-Hex 2%) 1 applic DAILY TOPIC 10/13/16 18:00 11/12/16 17:59 10/15/16 09:05 Dextrose (Dextrose 50%) STAT PRN IV Hypoglycemia 10/12/16 18:15 11/11/16 18:14 Dextrose/Sodium Chloride (D5 0.45% NS) 1,000 ml @ 75 mls/hr [id number] IV 10/11/16 23:00 11/10/16 22:59 10/15/16 05:12 Diphenhydramine HCl (Benadryl) 25 mg Q6H PRN ORAL Itching/Pruritis 10/12/16 00:15 11/11/16 00:14 Fluoxetine HCl (PROzac) 60 mg DAILY ORAL 10/12/16 09:00 11/11/16 08:59 10/15/16 09:05 Gabapentin (Neurontin) 600 mg Q8HR ORAL 10/12/16 06:00 11/11/16 05:59 10/14/16 21:32 Heparin Sodium (Porcine) (Heparin 5000 units/ml) 5,000 units EVERY 12 HOURS SUBQ 10/12/16 09:00 11/11/16 08:59 10/12/16 21:44 Heparin Sodium/ Sodium Chloride (Heparin 2000 units/Ns 1000ml premix) 2,000 unit ONCE PRN INJ PICC LINE PLACEMENT 10/13/16 12:45 11/12/16 12:44 Loperamide HCl (Imodium) 2 mg Q4H PRN ORAL Diarrhea 10/13/16 12:30 11/12/16 12:29 Lorazepam (Ativan) 1 mg HSPRN PRN ORAL For Anxiety 10/11/16 22:30 10/18/16 22:29 10/15/16 09:04 Morphine Sulfate (Morphine Sulfate) 2 mg Q4H PRN IVP severe Pain (Pain Scale 7-10) 10/11/16 22:15 10/18/16 22:14 10/15/16 03:57 Nitroglycerin (Ntg) 0.4 mg Q5M X 3 DOSES PRN SL Prn Chest Pain 10/11/16 22:15 11/10/16 22:14 Ondansetron HCl (Zofran) 4 mg Q6H PRN IVP Nausea & Vomiting 10/12/16 00:15 11/11/16 00:14 10/15/16 03:56 Pantoprazole (Protonix) 40 mg DAILY IVP 10/12/16 09:00 11/11/16 08:59 10/15/16 09:17 Polyethylene Glycol (Miralax) 17 gm HSPRN PRN ORAL Constipation 10/12/16 18:15 11/11/16 18:14 Temazepam (Restoril) 15 mg HSPRN PRN ORAL Insomnia 10/11/16 22:31 10/18/16 22:30 Thyroid (Lewis Thyroid) 30 mg ACBREAKFAST ORAL 10/12/16 06:30 11/11/16 06:29 10/14/16 06:37 Allergies: Coded Allergies: ERYTHROMYCIN BASE (Unverified Allergy, Unknown, 09/17/14) ROS Limited/Unobtainable: No Constitutional: Reports: no symptoms HEENT: Reports: no symptoms Cardiovascular: Reports: no symptoms Respiratory: Reports: no symptoms Gastrointestinal/Abdominal: Reports: abdominal pain, diarrhea Genitourinary: Reports: no symptoms Neurologic/Psychiatric: Reports: no symptoms Subjective 76 YO F admitted with epigastric pain and diarrhea. Await endoscopy today, . Cover for Int Florentino-Dr Truong Objective Last Vital Signs Date Time Temp Pulse Resp B/P Pulse Ox O2 Delivery O2 Flow Rate FiO2 10/15/16 12:30 97.4 66 18 101/61 99 Room Air Laboratory Tests Test 10/15/16 06:35 White Blood Count 4.8 K/UL (4.8-10.8) Red Blood Count 3.77 M/UL (4.20-5.40) L Hemoglobin 13.0 G/DL (12.0-16.0) Hematocrit 39.4 % (37.0-47.0) Mean Corpuscular Volume 105 FL (80-99) H Mean Corpuscular Hemoglobin 34.3 PG (27.0-31.0) H Mean Corpuscular Hemoglobin Concent 32.8 G/DL (32.0-36.0) Red Cell Distribution Width 11.8 % (11.6-14.8) Platelet Count 238 K/UL (150-450) Mean Platelet Volume 6.8 FL (6.5-10.1) Neutrophils (%) (Auto) 66.8 % (45.0-75.0) Lymphocytes (%) (Auto) 26.5 % (20.0-45.0) Monocytes (%) (Auto) 4.4 % (1.0-10.0) Eosinophils (%) (Auto) 1.3 % (0.0-3.0) Basophils (%) (Auto) 1.1 % (0.0-2.0) Prothrombin Time 10.1 SEC (9.30-11.50) Prothromb Time International Ratio 1.0 (0.9-1.1) Activated Partial Thromboplast Time 25 SEC (23-33) Sodium Level 142 mEQ/L (135-145) Potassium Level 4.3 mEQ/L (3.4-4.9) Chloride Level 105 mEQ/L (98-107) Carbon Dioxide Level 26 mEQ/L (20-30) Anion Gap 11 (5-15) Blood Urea Nitrogen 8 mg/dL (7-23) Creatinine 0.7 mg/dL (0.5-0.9) Estimat Glomerular Filtration Rate mL/min (>60) Glucose Level 91 mg/dL (74-106) Calcium Level 8.7 mg/dL (8.6-10.2) Microbiology Date/Time Source Procedure Growth Status 10/12/16 14:44 Stool Stool Culture - Preliminary NO SALMONELLA,SHIGELLA,OR CAMPYLOBACT... Resulted 10/12/16 14:44 Stool Clostridium difficile Toxin Assay - Final Complete Intake and Output 10/14/16 10/15/16 19:00 07:00 Intake Total 1825 ml 900 ml Output Total 350 ml Balance 1825 ml 550 ml Intake Oral 1000 ml IV Total 825 ml 900 ml Output Urine Total 350 ml # Voids 3 2 # Bowel Movements 3 Objective General Appearance: WD/WN, no apparent distress, alert EENT: PERRL/EOMI, normal ENT inspection Neck: non-tender, normal alignment, supple, normal inspection Cardiovascular: normal peripheral pulses, normal rate, regular rhythm, no gallop/murmur, no JVD Respiratory/Chest: chest wall non-tender, lungs clear, normal breath sounds, no respiratory distress, no accessory muscle use Abdomen: no organomegaly, no mass, decreased bowel sounds, guarding, tender Extremities: normal range of motion, non-tender 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 Await endoscopy today 10/15/16. (2) Diarrhea Assessment & Plan: Await stool culture results. (3) Nausea (4) Reflex sympathetic dystrophy (5) Hypothyroidism Assessment & Plan: Cont synthroid. (6) Fibromyalgia (7) Irritable bowel syndrome Assessment & Plan: see GI Note (8) Degenerative cervical disc Status: not improved Assessment/Plan Discharge planning: home health JOSE EDWARDS Oct 15, 2016 13:36
--- NOTE | 2016-10-15 14:02 | Endoscopy Procedure Note ---
Endoscopy Procedure Note Indication for Procedure: dilated IHD Procedures Performed: EGD, other - EUS Operative Findings/Diagnosis: gastritis Specimen: yes Pt Tolerated Procedure Well: Yes Estimated Blood Loss: none Anesthesiologist: Contreras Anesthesia: MAC Implant(s) used?: No 50 yrs or older w/o bx or poly: Not Applicable 10yrs. F/U not recommended: Not Applicable TOM HENDERSON Oct 15, 2016 14:02
--- NOTE | 2016-10-15 14:06 | Immediate Post-Op Evaluation ---
Immediate Post-Op Evalulation Immediate Post-Op Evalulation Date of Evaluation: Oct 15, 2016 Time of Evaluation: 14:04 IV Fluids: 400 Blood Pressure Systolic: 81 Blood Pressure Diastolic: 51 Pulse Rate: 73 Respiratory Rate: 16 O2 Sat by Pulse Oximetry: 99 Temperature (Fahrenheit): 98 Nausea: No Vomiting: No Patient Status: awake, patent Hydration Status: adequate Given Within 1 Hr of Incision: No Lucy Chairez CRNA Oct 15, 2016 14:06
--- NOTE | 2016-10-15 16:53 | Pulmonology Progress Note ---
Assessment/Plan Problems: (1) Ileus (2) Abdominal pain of unknown etiology (3) Nausea (4) Hypothyroidism (5) Fibromyalgia (6) Irritable bowel syndrome Assessment/Plan egd done IV fluids symptomatic f/u GI evaluation check electrolytes dvt prophylaxis all meds and notes reviewed Subjective ROS Limited/Unobtainable: No Interval Events: EGD done Allergies: Coded Allergies: ERYTHROMYCIN BASE (Unverified Allergy, Unknown, 09/17/14) Objective Last 24 Hour Vital Signs Date Time Temp Pulse Resp B/P Pulse Ox O2 Delivery O2 Flow Rate FiO2 10/15/16 16:00 97.8 76 18 131/77 98 Room Air 10/15/16 14:36 97.5 62 17 131/72 96 Room Air 10/15/16 14:27 66 16 120/71 97 Room Air 10/15/16 14:20 74 17 104/57 95 Room Air 10/15/16 14:10 64 15 94/55 96 Room Air 10/15/16 14:06 73 16 99 10/15/16 14:00 98.3 74 18 145/70 98 Room Air 10/15/16 12:30 97.4 66 18 101/61 99 Room Air 10/15/16 08:24 97.2 74 18 145/70 95 Room Air 10/15/16 04:00 97.7 81 21 114/84 100 Room Air 10/15/16 00:00 97.7 79 20 113/58 99 Room Air 10/14/16 20:00 97.7 82 20 102/76 99 Room Air Intake and Output 10/14/16 10/15/16 19:00 07:00 Intake Total 1825 ml 900 ml Output Total 350 ml Balance 1825 ml 550 ml Intake Oral 1000 ml IV Total 825 ml 900 ml Output Urine Total 350 ml # Voids 3 2 # Bowel Movements 3 General Appearance: WD/WN HEENT: normocephalic, atraumatic Respiratory/Chest: chest wall non-tender, lungs clear Breasts: no masses Cardiovascular: normal peripheral pulses Abdomen: normal bowel sounds, soft, non tender Genitourinary: normal external genitalia Extremities: no cyanosis Laboratory Tests 10/15/16 06:35: White Blood Count 4.8, Red Blood Count 3.77L, Hemoglobin 13.0, Hematocrit 39.4, Mean Corpuscular Volume 105H, Mean Corpuscular Hemoglobin 34.3H, Mean Corpuscular Hemoglobin Concent 32.8, Red Cell Distribution Width 11.8, Platelet Count 238, Mean Platelet Volume 6.8, Neutrophils (%) (Auto) 66.8, Lymphocytes (% ) (Auto) 26.5, Monocytes (%) (Auto) 4.4, Eosinophils (%) (Auto) 1.3, Basophils ( %) (Auto) 1.1, Prothrombin Time 10.1, Prothromb Time International Ratio 1.0, Activated Partial Thromboplast Time 25, Sodium Level 142, Potassium Level 4.3, Chloride Level 105, Carbon Dioxide Level 26, Anion Gap 11, Blood Urea Nitrogen 8 , Creatinine 0.7, Estimat Glomerular Filtration Rate , Glucose Level 91, Calcium Level 8.7 Current Medications Medications (Trade) Dose Ordered Sig/Joy Route PRN Reason Start Time Stop Time Status Last Admin Dose Admin Acetaminophen (Tylenol) 650 mg PRN PRN ORAL For Mild Pain 10/12/16 18:00 11/11/16 17:59 Acetaminophen (Tylenol) 650 mg Q4H PRN ORAL fever 10/11/16 22:15 11/10/16 22:14 Al Hydroxide/Mg Hydroxide (Mylanta II) 30 ml Q6H PRN ORAL dyspepsia 10/12/16 00:15 11/11/16 00:14 Aspirin (Ecotrin) 81 mg DAILY ORAL 10/12/16 09:00 11/11/16 08:59 10/14/16 12:51 Carisoprodol (Soma) 350 mg TIDPRN PRN ORAL MUSCLE SPASM 10/11/16 22:28 11/10/16 22:27 10/12/16 14:06 Chlorhexidine Gluconate (Stacey-Hex 2%) 1 applic DAILY TOPIC 10/13/16 18:00 11/12/16 17:59 10/15/16 09:05 Dextrose (Dextrose 50%) STAT PRN IV Hypoglycemia 10/12/16 18:15 11/11/16 18:14 Dextrose/Sodium Chloride (D5 0.45% NS) 1,000 ml @ 75 mls/hr [id number] IV 10/11/16 23:00 11/10/16 22:59 10/15/16 05:12 Diphenhydramine HCl (Benadryl) 25 mg Q6H PRN ORAL Itching/Pruritis 10/12/16 00:15 11/11/16 00:14 Fluoxetine HCl (PROzac) 60 mg DAILY ORAL 10/12/16 09:00 11/11/16 08:59 10/15/16 09:05 Gabapentin (Neurontin) 600 mg Q8HR ORAL 10/12/16 06:00 11/11/16 05:59 10/15/16 15:07 Heparin Sodium (Porcine) (Heparin 5000 units/ml) 5,000 units EVERY 12 HOURS SUBQ 10/12/16 09:00 11/11/16 08:59 10/12/16 21:44 Heparin Sodium/ Sodium Chloride (Heparin 2000 units/Ns 1000ml premix) 2,000 unit ONCE PRN INJ PICC LINE PLACEMENT 10/13/16 12:45 11/12/16 12:44 Loperamide HCl (Imodium) 2 mg Q4H PRN ORAL Diarrhea 10/13/16 12:30 11/12/16 12:29 Lorazepam (Ativan) 1 mg HSPRN PRN ORAL For Anxiety 10/11/16 22:30 10/18/16 22:29 10/15/16 09:04 Morphine Sulfate (Morphine Sulfate) 2 mg Q4H PRN IVP severe Pain (Pain Scale 7-10) 10/11/16 22:15 10/18/16 22:14 10/15/16 03:57 Nitroglycerin (Ntg) 0.4 mg Q5M X 3 DOSES PRN SL Prn Chest Pain 10/11/16 22:15 11/10/16 22:14 Ondansetron HCl (Zofran) 4 mg Q6H PRN IVP Nausea & Vomiting 10/12/16 00:15 11/11/16 00:14 10/15/16 03:56 Pantoprazole (Protonix) 40 mg DAILY IVP 10/12/16 09:00 11/11/16 08:59 10/15/16 09:17 Polyethylene Glycol (Miralax) 17 gm HSPRN PRN ORAL Constipation 10/12/16 18:15 11/11/16 18:14 Temazepam (Restoril) 15 mg HSPRN PRN ORAL Insomnia 10/11/16 22:31 10/18/16 22:30 Thyroid (Tyro Thyroid) 30 mg ACBREAKFAST ORAL 10/12/16 06:30 11/11/16 06:29 10/14/16 06:37 MAUREEN ROJAS Oct 15, 2016 16:53
--- NOTE | 2016-10-15 23:01 | Procedure Note ---
DATE OF PROCEDURE: 10/15/2016 SURGEON: Aramis Green M.D. PROCEDURE: Upper endoscopy with biopsy and endoscopic ultrasound. ANESTHESIA: Per Contreras STORY. INSTRUMENT: Olympus adult flexible upper endoscope and EUS scope. INDICATION: Abdominal pain, weight loss, and dilated duct seen on MRCP. REASON FOR PROCEDURE: The procedure, risks, benefits, and possible consequences, including hemorrhage, aspiration, perforation and infection, and alternative treatments, were explained to the patient/legal guardian by Dr. Aramis Green and the patient/legal guardian understood and accepted these risks. DESCRIPTION OF PROCEDURE: After informed consent was obtained and the patient was adequately sedated, Olympus upper endoscope was advanced from the mouth into the second portion of the duodenum and retroflexion was performed in the stomach. The patient had evidence of diffuse gastritis. Random biopsy from antrum was obtained to rule out H. pylori infection. At this time, the upper endoscope was retrieved and EUS scope was reintroduced for evaluation of the dilated common bile duct. We started scanning the GE junction, we saw celiac axis, there was no obvious celiac axis lymphadenopathy. Pancreatic parenchyma grossly within normal limits. Pancreatic duct measured about 1.8 mm in the body of the pancreas. There was no obvious mass or cyst was seen. Then, the scope was advanced in the duodenal bulb and second portion of duodenum pancreatic parenchyma was examined. There was no obvious pancreatic head mass. Common bile duct measured about 6 mm at the ampulla and pancreatic duct measured roughly about 3 mm. No obvious stones seen in the common bile duct. No obvious mass was seen. The gallbladder also was seen without any obvious gallstones. Examination of the intrahepatics was limited. We could not get a good view or good angle to see the intrahepatics very well. At this time, the EUS scope was retrieved and procedure was terminated. SUMMARY FINDINGS: 1. Gastritis, status post biopsy. 2. Normal pancreatic parenchyma with pancreatic duct and common bile duct. 3. Limited examination of the intrahepatic duct. RECOMMENDATIONS: 1. Resume diet. 2. Follow laboratories. 3. The patient okay to be discharged, . 4. Follow as an outpatient. I want to thank, Dr. Truong, for this kind referral. Aramis Lamar Green DR: REYNALDO JOB#: [id number] CC: Balbir Truong M.D.
[2016-10-16] VITALS: BP 100/51
[2016-10-16 04:00] VITALS: BP 101/55
[2016-10-16] MEDS: Morphine Sulfate 2mg/ml Inj IVP PRN ×2 (05:36→16:21)
[2016-10-16] MEDS: LORazepam 1mg tab ORAL PRN (05:40)
[2016-10-16 08:10] LABS: ANION GAP 10 (5-15); CALCIUM 8.3 mg/dL (8.6-10.2); CARBON DIOXIDE 25 mEQ/L (20-30); CHLORIDE 104 mEQ/L (98-107); CREATININE 0.8 mg/dL (0.5-0.9); HEMOLYSIS 62; POTASSIUM 4.5 mEQ/L (3.4-4.9); SODIUM 139 mEQ/L (135-145)
[2016-10-16 08:32] VITALS: BP 118/73
[2016-10-16] MEDS: Dyna-Hex 2% Top Sol 8oz TOPIC SCH (09:00)
[2016-10-16] MEDS: Heparin 5000 units/ml inj SUBQ SCH ×2 (09:00→21:00)
[2016-10-16] MEDS: Aspirin EC 81mg tab ORAL SCH (10:03)
[2016-10-16 10:07] LABS: BASOPHILS % (AUTO) 0.8 % (0.0-2.0); EOSINOPHILS % (AUTO) 1.3 % (0.0-3.0); LYMPHOCYTES % (AUTO) 28.8 % (20.0-45.0); MEAN CORPUSCULAR HEMOGLOBIN 34.9 PG (27.0-31.0); MEAN CORPUSCULAR HGB CONC 33.5 G/DL (32.0-36.0); MEAN CORPUSCULAR VOLUME 104 FL (80-99); MEAN PLATELET VOLUME 6.8 FL (6.5-10.1); NEUTROPHILS % (AUTO) 64.1 % (45.0-75.0); PLATELET COUNT 187 K/UL (150-450); RED BLOOD COUNT 3.16 M/UL (4.20-5.40); WHITE BLOOD COUNT 4.5 K/UL (4.8-10.8)
[2016-10-16] MEDS: Pantoprazole Inj IVP SCH (10:10)
[2016-10-16] MEDS: D5 1/2NS 1,000 ML IV SCH ×2 (10:18→23:44)
--- NOTE | 2016-10-16 11:13 | GI Progress Note ---
Assessment/Plan Problems: (1) Nausea ICD Codes: R11.0 - Nausea SNOMED: 932002112 (2) Epigastric abdominal pain ICD Codes: R10.13 - Epigastric pain SNOMED: 50673206 (3) Diarrhea ICD Codes: R19.7 - Diarrhea, unspecified SNOMED: 94241484 (4) Irritable bowel syndrome ICD Codes: K58.9 - Irritable bowel syndrome without diarrhea SNOMED: 56655710 (5) Ileus ICD Codes: K56.7 - Ileus, unspecified SNOMED: 180518172 (6) Abdominal pain ICD Codes: R10.9 - Unspecified abdominal pain SNOMED: 91382639 Qualifiers: Qualified Codes: R10.9 - Unspecified abdominal pain (7) Abdominal pain of unknown etiology ICD Codes: R10.9 - Unspecified abdominal pain SNOMED: 571899016 Status: stable Status Narrative Discussed with Dr. Green. Assessment/Plan S/P recent EGD/colonoscopy @ [facility] 1. Weight loss. 2. Diverticulosis. 3. Gastritis. 4. Gastric polyp. 5. Colonic polyp. 6. Fibromyalgia. 7. IBS. 8. Uterine fibroids. 9. Hypothyroidism The patient was seen and examined at bedside and all new and available data was reviewed in the patients chart. I agree with the above findings, impression and plan. (Patient seen earlier today. Signature stamp does not reflect patient encounter time.). -Aramis Green MD S/P EUS SUMMARY FINDINGS: 1. Gastritis, status post biopsy. 2. Normal pancreatic parenchyma with pancreatic duct and common bile duct. 3. Limited examination of the intrahepatic duct. MRCP reviewed >> Some prominence of the biliary ducts. No evidence of choledocholithiasis. CT AP reviewed >> Prominence of the wall of the pyloric channel, not evaluated well on the current CT examination. cdiff negative stool culture negative lipase unremarkable CA19-9 mild elevation RECOMMENDATIONS: ok for DC per GI standpoint Imodium prn, consider Lomotil if diarrhea persists resume diet pain mgmt fu stool fat Subjective Subjective abdominal pain not resolved ambulating explosive diarrhea refuses to take take Imodium Objective Last 24 Hour Vital Signs Date Time Temp Pulse Resp B/P Pulse Ox O2 Delivery O2 Flow Rate FiO2 10/16/16 08:32 97.0 89 18 118/73 100 Room Air 10/16/16 04:00 97.6 71 20 101/55 98 Room Air 10/16/16 00:00 97.5 67 20 100/51 99 Room Air 10/15/16 20:00 97.2 77 20 90/62 98 Room Air 10/15/16 16:00 97.8 76 18 131/77 98 Room Air 10/15/16 14:36 97.5 62 17 131/72 96 Room Air 10/15/16 14:27 66 16 120/71 97 Room Air 10/15/16 14:20 74 17 104/57 95 Room Air 10/15/16 14:10 64 15 94/55 96 Room Air 10/15/16 14:06 73 16 99 10/15/16 14:00 98.3 74 18 145/70 98 Room Air 10/15/16 12:30 97.4 66 18 101/61 99 Room Air Intake and Output 10/15/16 10/16/16 19:00 07:00 Intake Total 750 ml 1025 ml Balance 750 ml 1025 ml Intake Oral 200 ml IV Total 750 ml 825 ml # Voids 3 # Bowel Movements 2 Laboratory Tests Test 10/16/16 04:35 10/16/16 09:50 Sodium Level 139 mEQ/L (135-145) Potassium Level 4.5 mEQ/L (3.4-4.9) Chloride Level 104 mEQ/L (98-107) Carbon Dioxide Level 25 mEQ/L (20-30) Anion Gap 10 (5-15) Blood Urea Nitrogen 8 mg/dL (7-23) Creatinine 0.8 mg/dL (0.5-0.9) Estimat Glomerular Filtration Rate mL/min (>60) Glucose Level 103 mg/dL (74-106) Calcium Level 8.3 mg/dL (8.6-10.2) L White Blood Count 4.5 K/UL (4.8-10.8) L Red Blood Count 3.16 M/UL (4.20-5.40) L Hemoglobin 11.0 G/DL (12.0-16.0) L Hematocrit 33.0 % (37.0-47.0) L Mean Corpuscular Volume 104 FL (80-99) H Mean Corpuscular Hemoglobin 34.9 PG (27.0-31.0) H Mean Corpuscular Hemoglobin Concent 33.5 G/DL (32.0-36.0) Red Cell Distribution Width 12.0 % (11.6-14.8) Platelet Count 187 K/UL (150-450) Mean Platelet Volume 6.8 FL (6.5-10.1) Neutrophils (%) (Auto) 64.1 % (45.0-75.0) Lymphocytes (%) (Auto) 28.8 % (20.0-45.0) Monocytes (%) (Auto) 5.0 % (1.0-10.0) Eosinophils (%) (Auto) 1.3 % (0.0-3.0) Basophils (%) (Auto) 0.8 % (0.0-2.0) Height (Feet): 5 Height (Inches): 5.00 Weight (Pounds): 100 General Appearance: no apparent distress, alert, thin Cardiovascular: normal rate Respiratory/Chest: normal breath sounds, no respiratory distress Abdominal Exam: normal bowel sounds, non tender, soft Extremities: normal range of motion Felicita Melton N.P. Oct 16, 2016 11:13 ARAMIS GREEN Oct 24, 2016 09:43
[2016-10-16 12:18] VITALS: BP 119/75
[2016-10-16] MEDS ORDERED: D5 1/2NS 1000ml IV ONE ×2 (15:56→16:54)
[2016-10-16] MEDS ORDERED: Tubing IV Secondary IV ONE (15:56)
[2016-10-16 16:00] VITALS: BP 129/77
--- NOTE | 2016-10-16 19:08 | Internal Med Progress Note ---
Subjective Date of Service: Oct 16, 2016 Physician Name Edwards,Jose Attending Physician Balbir Truong MD Current Medications Medications (Trade) Dose Ordered Sig/Joy Route PRN Reason Start Time Stop Time Status Last Admin Dose Admin Acetaminophen (Tylenol) 650 mg PRN PRN ORAL For Mild Pain 10/12/16 18:00 11/11/16 17:59 Acetaminophen (Tylenol) 650 mg Q4H PRN ORAL fever 10/11/16 22:15 11/10/16 22:14 Al Hydroxide/Mg Hydroxide (Mylanta II) 30 ml Q6H PRN ORAL dyspepsia 10/12/16 00:15 11/11/16 00:14 Aspirin (Ecotrin) 81 mg DAILY ORAL 10/12/16 09:00 11/11/16 08:59 10/16/16 10:03 Carisoprodol (Soma) 350 mg TIDPRN PRN ORAL MUSCLE SPASM 10/11/16 22:28 11/10/16 22:27 10/12/16 14:06 Chlorhexidine Gluconate (Stacey-Hex 2%) 1 applic DAILY TOPIC 10/13/16 18:00 11/12/16 17:59 10/15/16 09:05 Dextrose (Dextrose 50%) STAT PRN IV Hypoglycemia 10/12/16 18:15 11/11/16 18:14 Dextrose/Sodium Chloride (D5 0.45% NS) 1,000 ml @ 75 mls/hr [id number] IV 10/11/16 23:00 11/10/16 22:59 10/16/16 10:18 Diphenhydramine HCl (Benadryl) 25 mg Q6H PRN ORAL Itching/Pruritis 10/12/16 00:15 11/11/16 00:14 Fluoxetine HCl (PROzac) 60 mg DAILY ORAL 10/12/16 09:00 11/11/16 08:59 10/16/16 10:03 Gabapentin (Neurontin) 600 mg Q8HR ORAL 10/12/16 06:00 11/11/16 05:59 10/16/16 14:24 Heparin Sodium (Porcine) (Heparin 5000 units/ml) 5,000 units EVERY 12 HOURS SUBQ 10/12/16 09:00 11/11/16 08:59 10/12/16 21:44 Loperamide HCl (Imodium) 2 mg Q4H PRN ORAL Diarrhea 10/13/16 12:30 11/12/16 12:29 Lorazepam (Ativan) 1 mg HSPRN PRN ORAL For Anxiety 10/11/16 22:30 10/18/16 22:29 10/16/16 05:40 Morphine Sulfate (Morphine Sulfate) 2 mg Q4H PRN IVP severe Pain (Pain Scale 7-10) 10/11/16 22:15 10/18/16 22:14 10/16/16 16:21 Nitroglycerin (Ntg) 0.4 mg Q5M X 3 DOSES PRN SL Prn Chest Pain 10/11/16 22:15 11/10/16 22:14 Ondansetron HCl (Zofran) 4 mg Q6H PRN IVP Nausea & Vomiting 10/12/16 00:15 11/11/16 00:14 10/16/16 17:30 Pantoprazole (Protonix) 40 mg DAILY ORAL 10/17/16 09:00 11/16/16 08:59 Polyethylene Glycol (Miralax) 17 gm HSPRN PRN ORAL Constipation 10/12/16 18:15 11/11/16 18:14 Temazepam (Restoril) 15 mg HSPRN PRN ORAL Insomnia 10/11/16 22:31 10/18/16 22:30 Thyroid ([place] Thyroid) 30 mg ACBREAKFAST ORAL 10/12/16 06:30 11/11/16 06:29 10/16/16 05:35 Allergies: Coded Allergies: ERYTHROMYCIN BASE (Unverified Allergy, Unknown, 09/17/14) Subjective 76 YO F admitted with epigastric pain and diarrhea. S/P endoscopy 10/15/16. Cover for Int Florentino-Dr Truong Objective Last Vital Signs Date Time Temp Pulse Resp B/P Pulse Ox O2 Delivery O2 Flow Rate FiO2 10/16/16 16:00 97.3 81 18 129/77 99 Room Air Laboratory Tests Test 10/16/16 04:35 10/16/16 09:50 Sodium Level 139 mEQ/L (135-145) Potassium Level 4.5 mEQ/L (3.4-4.9) Chloride Level 104 mEQ/L (98-107) Carbon Dioxide Level 25 mEQ/L (20-30) Anion Gap 10 (5-15) Blood Urea Nitrogen 8 mg/dL (7-23) Creatinine 0.8 mg/dL (0.5-0.9) Estimat Glomerular Filtration Rate mL/min (>60) Glucose Level 103 mg/dL (74-106) Calcium Level 8.3 mg/dL (8.6-10.2) L White Blood Count 4.5 K/UL (4.8-10.8) L Red Blood Count 3.16 M/UL (4.20-5.40) L Hemoglobin 11.0 G/DL (12.0-16.0) L Hematocrit 33.0 % (37.0-47.0) L Mean Corpuscular Volume 104 FL (80-99) H Mean Corpuscular Hemoglobin 34.9 PG (27.0-31.0) H Mean Corpuscular Hemoglobin Concent 33.5 G/DL (32.0-36.0) Red Cell Distribution Width 12.0 % (11.6-14.8) Platelet Count 187 K/UL (150-450) Mean Platelet Volume 6.8 FL (6.5-10.1) Neutrophils (%) (Auto) 64.1 % (45.0-75.0) Lymphocytes (%) (Auto) 28.8 % (20.0-45.0) Monocytes (%) (Auto) 5.0 % (1.0-10.0) Eosinophils (%) (Auto) 1.3 % (0.0-3.0) Basophils (%) (Auto) 0.8 % (0.0-2.0) Microbiology Date/Time Source Procedure Growth Status 10/13/16 20:00 Stool Stool Culture - Preliminary NORMAL FECAL SHARITA. Resulted Intake and Output 10/15/16 10/16/16 19:00 07:00 Intake Total 750 ml 1025 ml Balance 750 ml 1025 ml Intake Oral 200 ml IV Total 750 ml 825 ml # Voids 3 # Bowel Movements 2 Objective General Appearance: WD/WN, no apparent distress, alert EENT: PERRL/EOMI, normal ENT inspection Neck: non-tender, normal alignment, supple, normal inspection Cardiovascular: normal peripheral pulses, normal rate, regular rhythm, no gallop/murmur, no JVD Respiratory/Chest: chest wall non-tender, lungs clear, normal breath sounds, no respiratory distress, no accessory muscle use Abdomen: no organomegaly, no mass, decreased bowel sounds, guarding, tender Extremities: normal range of motion, non-tender 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 S/P endoscopy 10/15/16=gastritis. (2) Diarrhea Assessment & Plan: Await stool culture results. (3) Nausea (4) Reflex sympathetic dystrophy (5) Hypothyroidism Assessment & Plan: Cont synthroid. (6) Fibromyalgia (7) Irritable bowel syndrome Assessment & Plan: see GI Note (8) Degenerative cervical disc Assessment/Plan Discharge planning 10/17/16: JOSE Whitmore Oct 16, 2016 19:07
[2016-10-16 20:00] VITALS: BP 120/61
--- NOTE | 2016-10-16 22:11 | Pulmonology Progress Note ---
Assessment/Plan Problems: (1) Ileus (2) Abdominal pain of unknown etiology (3) Nausea (4) Hypothyroidism (5) Fibromyalgia (6) Irritable bowel syndrome Assessment/Plan egd done IV fluids symptomatic f/u GI evaluation check electrolytes dvt prophylaxis all meds and notes reviewed dc planning to SNIF Subjective ROS Limited/Unobtainable: No Interval Events: all noted, no new complains Allergies: Coded Allergies: ERYTHROMYCIN BASE (Unverified Allergy, Unknown, 09/17/14) Objective Last 24 Hour Vital Signs Date Time Temp Pulse Resp B/P Pulse Ox O2 Delivery O2 Flow Rate FiO2 10/16/16 20:04 97.1 10/16/16 20:00 97.1 75 18 120/61 96 Room Air 10/16/16 16:00 97.3 81 18 129/77 99 Room Air 10/16/16 12:18 97.9 78 18 119/75 96 Room Air 10/16/16 08:32 97.0 89 18 118/73 100 Room Air 10/16/16 04:00 97.6 71 20 101/55 98 Room Air 10/16/16 00:00 97.5 67 20 100/51 99 Room Air Intake and Output 10/15/16 10/16/16 19:00 07:00 Intake Total 750 ml 1025 ml Balance 750 ml 1025 ml Intake Oral 200 ml IV Total 750 ml 825 ml # Voids 3 # Bowel Movements 2 General Appearance: cachetic HEENT: normocephalic, atraumatic Respiratory/Chest: chest wall non-tender, lungs clear Breasts: no masses Cardiovascular: normal peripheral pulses Abdomen: normal bowel sounds, soft, non tender Genitourinary: normal external genitalia Extremities: no cyanosis Laboratory Tests 10/16/16 04:35: Sodium Level 139, Potassium Level 4.5, Chloride Level 104, Carbon Dioxide Level 25, Anion Gap 10, Blood Urea Nitrogen 8, Creatinine 0.8, Estimat Glomerular Filtration Rate , Glucose Level 103, Calcium Level 8.3L 10/16/16 09:50: White Blood Count 4.5L, Red Blood Count 3.16L, Hemoglobin 11.0L, Hematocrit 33.0L, Mean Corpuscular Volume 104H, Mean Corpuscular Hemoglobin 34.9H, Mean Corpuscular Hemoglobin Concent 33.5, Red Cell Distribution Width 12.0, Platelet Count 187, Mean Platelet Volume 6.8, Neutrophils (%) (Auto) 64.1, Lymphocytes (% ) (Auto) 28.8, Monocytes (%) (Auto) 5.0, Eosinophils (%) (Auto) 1.3, Basophils ( %) (Auto) 0.8 Current Medications Medications (Trade) Dose Ordered Sig/Joy Route PRN Reason Start Time Stop Time Status Last Admin Dose Admin Acetaminophen (Tylenol) 650 mg PRN PRN ORAL For Mild Pain 10/12/16 18:00 11/11/16 17:59 Acetaminophen (Tylenol) 650 mg Q4H PRN ORAL fever 10/11/16 22:15 11/10/16 22:14 Al Hydroxide/Mg Hydroxide (Mylanta II) 30 ml Q6H PRN ORAL dyspepsia 10/12/16 00:15 11/11/16 00:14 Aspirin (Ecotrin) 81 mg DAILY ORAL 10/12/16 09:00 11/11/16 08:59 10/16/16 10:03 Carisoprodol (Soma) 350 mg TIDPRN PRN ORAL MUSCLE SPASM 10/11/16 22:28 11/10/16 22:27 10/16/16 19:05 Chlorhexidine Gluconate (Stacey-Hex 2%) 1 applic DAILY TOPIC 10/13/16 18:00 11/12/16 17:59 10/15/16 09:05 Dextrose (Dextrose 50%) STAT PRN IV Hypoglycemia 10/12/16 18:15 11/11/16 18:14 Dextrose/Sodium Chloride (D5 0.45% NS) 1,000 ml @ 75 mls/hr [id number] IV 10/11/16 23:00 11/10/16 22:59 10/16/16 10:18 Diphenhydramine HCl (Benadryl) 25 mg Q6H PRN ORAL Itching/Pruritis 10/12/16 00:15 11/11/16 00:14 Fluoxetine HCl (PROzac) 60 mg DAILY ORAL 10/12/16 09:00 11/11/16 08:59 10/16/16 10:03 Gabapentin (Neurontin) 600 mg Q8HR ORAL 10/12/16 06:00 11/11/16 05:59 10/16/16 21:01 Heparin Sodium (Porcine) (Heparin 5000 units/ml) 5,000 units EVERY 12 HOURS SUBQ 10/12/16 09:00 11/11/16 08:59 10/12/16 21:44 Loperamide HCl (Imodium) 2 mg Q4H PRN ORAL Diarrhea 10/13/16 12:30 11/12/16 12:29 Lorazepam (Ativan) 1 mg HSPRN PRN ORAL For Anxiety 10/11/16 22:30 10/18/16 22:29 10/16/16 05:40 Morphine Sulfate (Morphine Sulfate) 2 mg Q4H PRN IVP severe Pain (Pain Scale 7-10) 10/11/16 22:15 10/18/16 22:14 10/16/16 16:21 Nitroglycerin (Ntg) 0.4 mg Q5M X 3 DOSES PRN SL Prn Chest Pain 10/11/16 22:15 11/10/16 22:14 Ondansetron HCl (Zofran) 4 mg Q6H PRN IVP Nausea & Vomiting 10/12/16 00:15 11/11/16 00:14 10/16/16 17:30 Pantoprazole (Protonix) 40 mg DAILY ORAL 10/17/16 09:00 11/16/16 08:59 Polyethylene Glycol (Miralax) 17 gm HSPRN PRN ORAL Constipation 10/12/16 18:15 11/11/16 18:14 Temazepam (Restoril) 15 mg HSPRN PRN ORAL Insomnia 10/11/16 22:31 10/18/16 22:30 Thyroid ([place] Thyroid) 30 mg ACBREAKFAST ORAL 10/12/16 06:30 11/11/16 06:29 10/16/16 05:35 MAUREEN ROJAS Oct 16, 2016 22:11
[2016-10-17] VITALS (7 sets, daily range): BP systolic 98–151; BP diastolic 56–77
[2016-10-17] MEDS: Morphine Sulfate 2mg/ml Inj IVP PRN (08:37)
[2016-10-17] MEDS: Heparin 5000 units/ml inj SUBQ SCH ×2 (09:00→21:00)
[2016-10-17] MEDS: Dyna-Hex 2% Top Sol 8oz TOPIC SCH (09:00)
[2016-10-17] MEDS: Aspirin EC 81mg tab ORAL SCH (10:14)
--- NOTE | 2016-10-17 11:11 | GI Progress Note ---
Assessment/Plan Problems: (1) Nausea ICD Codes: R11.0 - Nausea SNOMED: 900035061 (2) Epigastric abdominal pain ICD Codes: R10.13 - Epigastric pain SNOMED: 56091111 (3) Diarrhea ICD Codes: R19.7 - Diarrhea, unspecified SNOMED: 96389488 (4) Irritable bowel syndrome ICD Codes: K58.9 - Irritable bowel syndrome without diarrhea SNOMED: 72639660 (5) Ileus ICD Codes: K56.7 - Ileus, unspecified SNOMED: 913660508 (6) Abdominal pain ICD Codes: R10.9 - Unspecified abdominal pain SNOMED: 38847345 Qualifiers: Qualified Codes: R10.9 - Unspecified abdominal pain (7) Abdominal pain of unknown etiology ICD Codes: R10.9 - Unspecified abdominal pain SNOMED: 832534824 Status: stable Status Narrative Discussed with Dr. Green. Assessment/Plan S/P recent EGD/colonoscopy @ [facility] 1. Weight loss. 2. Diverticulosis. 3. Gastritis. 4. Gastric polyp. 5. Colonic polyp. 6. Fibromyalgia. 7. IBS. 8. Uterine fibroids. 9. Hypothyroidism S/P EUS SUMMARY FINDINGS: 1. Gastritis, status post biopsy. 2. Normal pancreatic parenchyma with pancreatic duct and common bile duct. 3. Limited examination of the intrahepatic duct. MRCP reviewed >> Some prominence of the biliary ducts. No evidence of choledocholithiasis. CT AP reviewed >> Prominence of the wall of the pyloric channel, not evaluated well on the current CT examination. cdiff negative stool culture negative lipase unremarkable CA19-9 mild elevation RECOMMENDATIONS: ok for DC per GI standpoint Imodium prn, consider Lomotil if diarrhea persists resume diet pain mgmt fu stool fat Subjective Subjective abdominal pain not resolved ambulating explosive diarrhea refuses to take take Imodium Objective Last 24 Hour Vital Signs Date Time Temp Pulse Resp B/P Pulse Ox O2 Delivery O2 Flow Rate FiO2 10/17/16 08:34 97.2 77 18 151/77 99 Room Air 10/17/16 04:47 96.6 75 20 98/59 97 Room Air 10/17/16 00:55 97.3 83 18 144/72 98 Room Air 10/16/16 20:04 97.1 10/16/16 20:00 97.1 75 18 120/61 96 Room Air 10/16/16 16:00 97.3 81 18 129/77 99 Room Air 10/16/16 12:18 97.9 78 18 119/75 96 Room Air Intake and Output 10/16/16 10/17/16 19:00 07:00 Intake Total 825 ml 1443 ml Balance 825 ml 1443 ml Intake Oral 600 ml IV Total 825 ml 843 ml # Voids 6 # Bowel Movements 4 Height (Feet): 5 Height (Inches): 5.00 Weight (Pounds): 100 General Appearance: no apparent distress, alert Cardiovascular: normal rate Respiratory/Chest: normal breath sounds, no respiratory distress Abdominal Exam: normal bowel sounds, non tender, soft Extremities: normal range of motion Felicita Melton N.P. Oct 17, 2016 11:11
[2016-10-17] MEDS ORDERED: Lomotil 2.5mg tab ORAL PRN (11:45)
[2016-10-17] MEDS: D5 1/2NS 1,000 ML IV SCH (12:07)
[2016-10-17] MEDS: LORazepam 1mg tab ORAL PRN (12:25)
--- NOTE | 2016-10-17 13:25 | Infectious Diseases Prog Note ---
Assessment/Plan Assessment/Plan A; Ileus Diverticulosis Hypothyroidism P; observe off antibiotic Subjective ROS Limited/Unobtainable: No Respiratory: Reports: no symptoms Gastrointestinal/Abdominal: Reports: diarrhea, other - pain in left upper abdomen Allergies: Coded Allergies: ERYTHROMYCIN BASE (Unverified Allergy, Unknown, 09/17/14) Objective Vital Signs Last 24 Hour Vital Signs Date Time Temp Pulse Resp B/P Pulse Ox O2 Delivery O2 Flow Rate FiO2 10/17/16 12:24 98.8 10/17/16 12:05 71 18 129/76 98 Room Air 10/17/16 08:34 97.2 77 18 151/77 99 Room Air 10/17/16 04:47 96.6 75 20 98/59 97 Room Air 10/17/16 00:55 97.3 83 18 144/72 98 Room Air 10/16/16 20:04 97.1 10/16/16 20:00 97.1 75 18 120/61 96 Room Air 10/16/16 16:00 97.3 81 18 129/77 99 Room Air Height (Feet): 5 Height (Inches): 5.00 Weight (Pounds): 100 General Appearance: no acute distress HEENT: mucous membranes moist Respiratory/Chest: lungs clear Cardiovascular: normal rate Abdomen: soft, non tender Extremities: no edema Neurologic/Psychiatric: alert, oriented x 3, responsive Current Medications Medications (Trade) Dose Ordered Sig/Joy Route PRN Reason Start Time Stop Time Status Last Admin Dose Admin Acetaminophen (Tylenol) 650 mg PRN PRN ORAL For Mild Pain 10/12/16 18:00 11/11/16 17:59 Acetaminophen (Tylenol) 650 mg Q4H PRN ORAL fever 10/11/16 22:15 11/10/16 22:14 Al Hydroxide/Mg Hydroxide (Mylanta II) 30 ml Q6H PRN ORAL dyspepsia 10/12/16 00:15 11/11/16 00:14 Aspirin (Ecotrin) 81 mg DAILY ORAL 10/12/16 09:00 11/11/16 08:59 10/17/16 10:14 Carisoprodol (Soma) 350 mg TIDPRN PRN ORAL MUSCLE SPASM 10/11/16 22:28 11/10/16 22:27 10/16/16 19:05 Chlorhexidine Gluconate (Stacey-Hex 2%) 1 applic DAILY TOPIC 10/13/16 18:00 11/12/16 17:59 10/15/16 09:05 Dextrose (Dextrose 50%) STAT PRN IV Hypoglycemia 10/12/16 18:15 11/11/16 18:14 Dextrose/Sodium Chloride (D5 0.45% NS) 1,000 ml @ 75 mls/hr [id number] IV 10/11/16 23:00 11/10/16 22:59 10/16/16 23:44 Diphenhydramine HCl (Benadryl) 25 mg Q6H PRN ORAL Itching/Pruritis 10/12/16 00:15 11/11/16 00:14 Diphenoxylate HCl/ Atropine (Lomotil) 2.5 mg Q4H PRN ORAL Diarrhea 10/17/16 11:45 11/16/16 11:44 Fluoxetine HCl (PROzac) 60 mg DAILY ORAL 10/12/16 09:00 11/11/16 08:59 10/17/16 10:15 Gabapentin (Neurontin) 600 mg Q8HR ORAL 10/12/16 06:00 11/11/16 05:59 10/17/16 06:21 Heparin Sodium (Porcine) (Heparin 5000 units/ml) 5,000 units EVERY 12 HOURS SUBQ 10/12/16 09:00 11/11/16 08:59 10/12/16 21:44 Loperamide HCl (Imodium) 2 mg Q4H PRN ORAL Diarrhea 10/13/16 12:30 11/12/16 12:29 Lorazepam (Ativan) 1 mg HSPRN PRN ORAL For Anxiety 10/11/16 22:30 10/18/16 22:29 10/16/16 05:40 Lorazepam (Ativan) 1 mg Q6H PRN ORAL For Anxiety 10/17/16 11:45 10/24/16 11:44 10/17/16 12:25 Morphine Sulfate (Morphine Sulfate) 2 mg Q4H PRN IVP severe Pain (Pain Scale 7-10) 10/11/16 22:15 10/18/16 22:14 10/17/16 08:37 Nitroglycerin (Ntg) 0.4 mg Q5M X 3 DOSES PRN SL Prn Chest Pain 10/11/16 22:15 11/10/16 22:14 Ondansetron HCl (Zofran) 4 mg Q6H PRN IVP Nausea & Vomiting 10/12/16 00:15 11/11/16 00:14 10/17/16 08:43 Pantoprazole (Protonix) 40 mg DAILY ORAL 10/17/16 09:00 11/16/16 08:59 10/17/16 10:15 Polyethylene Glycol (Miralax) 17 gm HSPRN PRN ORAL Constipation 10/12/16 18:15 11/11/16 18:14 Temazepam (Restoril) 15 mg HSPRN PRN ORAL Insomnia 10/11/16 22:31 10/18/16 22:30 Thyroid ([place] Thyroid) 30 mg ACBREAKFAST ORAL 10/12/16 06:30 11/11/16 06:29 10/17/16 06:21 GAIL DING Oct 17, 2016 13:25
[2016-10-17] MEDS ORDERED: ACETAMINOPHEN325 M1 ORAL (16:30)
[2016-10-17] MEDS ORDERED: BENADRYL25 MG ORAL (16:31)
[2016-10-17] MEDS ORDERED: MYLANTA30 M1 GT (16:31)
[2016-10-17] MEDS ORDERED: ATIVAN1 MG ORAL (16:32)
[2016-10-17] MEDS ORDERED: LOMOTIL TABLET1 EACH ORAL (16:32)
[2016-10-17] MEDS ORDERED: HEPARIN SO5000 UNIT2 SUBQ (16:32)
[2016-10-17] MEDS ORDERED: MORPHINE 22 MG/1 ML IV (16:33)
[2016-10-17] MEDS ORDERED: IMODIUM MULTI-1 EACH PO (16:33)
[2016-10-17] MEDS ORDERED: NITROGLYCERIN0.4 MG SL (16:34)
[2016-10-17] MEDS ORDERED: MIRALAX17 G2 ORAL (16:34)
[2016-10-17] MEDS ORDERED: ZOFRAN 4 MG4 MG/2 ML IV (16:34)
[2016-10-17] MEDS ORDERED: PROTONIX40 MG ORAL (16:34)
[2016-10-17] MEDS ORDERED: ARMOUR THYROID30 MG ORAL (16:35)
[2016-10-17] MEDS ORDERED: RESTORIL15 MG ORAL (16:35)
--- NOTE | 2016-10-17 18:55 | Pulmonology Progress Note ---
Assessment/Plan Problems: (1) Ileus (2) Abdominal pain of unknown etiology (3) Nausea (4) Hypothyroidism (5) Fibromyalgia (6) Irritable bowel syndrome Assessment/Plan egd done advance diet symptomatic f/u GI evaluation appreciated, recommending dc check electrolytes dvt prophylaxis all meds and notes reviewed dc planning to SNIF Subjective ROS Limited/Unobtainable: No Allergies: Coded Allergies: ERYTHROMYCIN BASE (Unverified Allergy, Unknown, 09/17/14) Objective Last 24 Hour Vital Signs Date Time Temp Pulse Resp B/P Pulse Ox O2 Delivery O2 Flow Rate FiO2 10/17/16 16:27 97.3 75 18 106/60 99 Room Air 10/17/16 16:00 97.7 75 16 102/56 93 Room Air 10/17/16 12:24 98.8 10/17/16 12:05 71 18 129/76 98 Room Air 10/17/16 08:34 97.2 77 18 151/77 99 Room Air 10/17/16 04:47 96.6 75 20 98/59 97 Room Air 10/17/16 00:55 97.3 83 18 144/72 98 Room Air 10/16/16 20:04 97.1 10/16/16 20:00 97.1 75 18 120/61 96 Room Air Intake and Output 10/16/16 10/17/16 19:00 07:00 Intake Total 825 ml 1443 ml Balance 825 ml 1443 ml Intake Oral 600 ml IV Total 825 ml 843 ml # Voids 6 # Bowel Movements 4 General Appearance: WD/WN HEENT: normocephalic, atraumatic Respiratory/Chest: chest wall non-tender, lungs clear Cardiovascular: normal peripheral pulses, normal rate Abdomen: normal bowel sounds, soft, non tender Genitourinary: normal external genitalia Extremities: no cyanosis, no clubbing Current Medications Medications (Trade) Dose Ordered Sig/Joy Route PRN Reason Start Time Stop Time Status Last Admin Dose Admin Acetaminophen (Tylenol) 650 mg PRN PRN ORAL For Mild Pain 10/12/16 18:00 11/11/16 17:59 Acetaminophen (Tylenol) 650 mg Q4H PRN ORAL fever 10/11/16 22:15 11/10/16 22:14 Al Hydroxide/Mg Hydroxide (Mylanta II) 30 ml Q6H PRN ORAL dyspepsia 10/12/16 00:15 11/11/16 00:14 Aspirin (Ecotrin) 81 mg DAILY ORAL 10/12/16 09:00 11/11/16 08:59 10/17/16 10:14 Carisoprodol (Soma) 350 mg TIDPRN PRN ORAL MUSCLE SPASM 10/11/16 22:28 11/10/16 22:27 10/16/16 19:05 Chlorhexidine Gluconate (Stacey-Hex 2%) 1 applic DAILY TOPIC 10/13/16 18:00 11/12/16 17:59 10/15/16 09:05 Dextrose (Dextrose 50%) STAT PRN IV Hypoglycemia 10/12/16 18:15 11/11/16 18:14 Dextrose/Sodium Chloride (D5 0.45% NS) 1,000 ml @ 75 mls/hr [id number] IV 10/11/16 23:00 11/10/16 22:59 10/16/16 23:44 Diphenhydramine HCl (Benadryl) 25 mg Q6H PRN ORAL Itching/Pruritis 10/12/16 00:15 11/11/16 00:14 Diphenoxylate HCl/ Atropine (Lomotil) 2.5 mg Q4H PRN ORAL Diarrhea 10/17/16 11:45 11/16/16 11:44 Fluoxetine HCl (PROzac) 60 mg DAILY ORAL 10/12/16 09:00 11/11/16 08:59 10/17/16 10:15 Gabapentin (Neurontin) 600 mg Q8HR ORAL 10/12/16 06:00 11/11/16 05:59 10/17/16 14:04 Heparin Sodium (Porcine) (Heparin 5000 units/ml) 5,000 units EVERY 12 HOURS SUBQ 10/12/16 09:00 11/11/16 08:59 10/12/16 21:44 Loperamide HCl (Imodium) 2 mg Q4H PRN ORAL Diarrhea 10/13/16 12:30 11/12/16 12:29 Lorazepam (Ativan) 1 mg HSPRN PRN ORAL For Anxiety 10/11/16 22:30 10/18/16 22:29 10/16/16 05:40 Lorazepam (Ativan) 1 mg Q6H PRN ORAL For Anxiety 10/17/16 11:45 8/18/17 11:44 10/17/16 12:25 Morphine Sulfate (Morphine Sulfate) 2 mg Q4H PRN IVP severe Pain (Pain Scale 7-10) 10/11/16 22:15 10/18/16 22:14 10/17/16 08:37 Nitroglycerin (Ntg) 0.4 mg Q5M X 3 DOSES PRN SL Prn Chest Pain 10/11/16 22:15 11/10/16 22:14 Ondansetron HCl (Zofran) 4 mg Q6H PRN IVP Nausea & Vomiting 10/12/16 00:15 11/11/16 00:14 10/17/16 08:43 Pantoprazole (Protonix) 40 mg DAILY ORAL 10/17/16 09:00 11/16/16 08:59 10/17/16 10:15 Polyethylene Glycol (Miralax) 17 gm HSPRN PRN ORAL Constipation 10/12/16 18:15 11/11/16 18:14 Temazepam (Restoril) 15 mg HSPRN PRN ORAL Insomnia 10/11/16 22:31 10/18/16 22:30 Thyroid ([place] Thyroid) 30 mg ACBREAKFAST ORAL 10/12/16 06:30 11/11/16 06:29 10/17/16 06:21 MAUREEN ROJAS Oct 17, 2016 18:55
--- NOTE | 2016-10-17 19:01 | Internal Med Progress Note ---
Subjective Date of Service: Oct 17, 2016 Physician Name ButlerJose Attending Physician Balbir Truong MD Current Medications Medications (Trade) Dose Ordered Sig/Joy Route PRN Reason Start Time Stop Time Status Last Admin Dose Admin Acetaminophen (Tylenol) 650 mg PRN PRN ORAL For Mild Pain 10/12/16 18:00 11/11/16 17:59 Acetaminophen (Tylenol) 650 mg Q4H PRN ORAL fever 10/11/16 22:15 11/10/16 22:14 Al Hydroxide/Mg Hydroxide (Mylanta II) 30 ml Q6H PRN ORAL dyspepsia 10/12/16 00:15 11/11/16 00:14 Aspirin (Ecotrin) 81 mg DAILY ORAL 10/12/16 09:00 11/11/16 08:59 10/17/16 10:14 Carisoprodol (Soma) 350 mg TIDPRN PRN ORAL MUSCLE SPASM 10/11/16 22:28 11/10/16 22:27 10/16/16 19:05 Chlorhexidine Gluconate (Stacey-Hex 2%) 1 applic DAILY TOPIC 10/13/16 18:00 11/12/16 17:59 10/15/16 09:05 Dextrose (Dextrose 50%) STAT PRN IV Hypoglycemia 10/12/16 18:15 11/11/16 18:14 Dextrose/Sodium Chloride (D5 0.45% NS) 1,000 ml @ 75 mls/hr [id number] IV 10/11/16 23:00 11/10/16 22:59 10/16/16 23:44 Diphenhydramine HCl (Benadryl) 25 mg Q6H PRN ORAL Itching/Pruritis 10/12/16 00:15 11/11/16 00:14 Diphenoxylate HCl/ Atropine (Lomotil) 2.5 mg Q4H PRN ORAL Diarrhea 10/17/16 11:45 11/16/16 11:44 Fluoxetine HCl (PROzac) 60 mg DAILY ORAL 10/12/16 09:00 11/11/16 08:59 10/17/16 10:15 Gabapentin (Neurontin) 600 mg Q8HR ORAL 10/12/16 06:00 11/11/16 05:59 10/17/16 14:04 Heparin Sodium (Porcine) (Heparin 5000 units/ml) 5,000 units EVERY 12 HOURS SUBQ 10/12/16 09:00 11/11/16 08:59 10/12/16 21:44 Loperamide HCl (Imodium) 2 mg Q4H PRN ORAL Diarrhea 10/13/16 12:30 11/12/16 12:29 Lorazepam (Ativan) 1 mg HSPRN PRN ORAL For Anxiety 10/11/16 22:30 10/18/16 22:29 10/16/16 05:40 Lorazepam (Ativan) 1 mg Q6H PRN ORAL For Anxiety 10/17/16 11:45 10/24/16 11:44 10/17/16 12:25 Morphine Sulfate (Morphine Sulfate) 2 mg Q4H PRN IVP severe Pain (Pain Scale 7-10) 10/11/16 22:15 10/18/16 22:14 10/17/16 08:37 Nitroglycerin (Ntg) 0.4 mg Q5M X 3 DOSES PRN SL Prn Chest Pain 10/11/16 22:15 11/10/16 22:14 Ondansetron HCl (Zofran) 4 mg Q6H PRN IVP Nausea & Vomiting 10/12/16 00:15 11/11/16 00:14 10/17/16 08:43 Pantoprazole (Protonix) 40 mg DAILY ORAL 10/17/16 09:00 11/16/16 08:59 10/17/16 10:15 Polyethylene Glycol (Miralax) 17 gm HSPRN PRN ORAL Constipation 10/12/16 18:15 11/11/16 18:14 Temazepam (Restoril) 15 mg HSPRN PRN ORAL Insomnia 10/11/16 22:31 10/18/16 22:30 Thyroid ([place] Thyroid) 30 mg ACBREAKFAST ORAL 10/12/16 06:30 11/11/16 06:29 10/17/16 06:21 Allergies: Coded Allergies: ERYTHROMYCIN BASE (Unverified Allergy, Unknown, 09/17/14) ROS Limited/Unobtainable: No Constitutional: Reports: no symptoms HEENT: Reports: no symptoms Cardiovascular: Reports: no symptoms Respiratory: Reports: no symptoms Gastrointestinal/Abdominal: Reports: no symptoms Genitourinary: Reports: no symptoms Neurologic/Psychiatric: Reports: no symptoms Subjective 76 YO F admitted with epigastric pain and diarrhea. S/P endoscopy 10/15/16. Cover for Int Med-Dr Truong. Await Bed at [facility] Objective Last Vital Signs Date Time Temp Pulse Resp B/P Pulse Ox O2 Delivery O2 Flow Rate FiO2 10/17/16 16:27 97.3 75 18 106/60 99 Room Air Intake and Output 10/16/16 10/17/16 19:00 07:00 Intake Total 825 ml 1443 ml Balance 825 ml 1443 ml Intake Oral 600 ml IV Total 825 ml 843 ml # Voids 6 # Bowel Movements 4 Objective General Appearance: WD/WN, no apparent distress, alert EENT: PERRL/EOMI, normal ENT inspection Neck: non-tender, normal alignment, supple, normal inspection Cardiovascular: normal peripheral pulses, normal rate, regular rhythm, no gallop/murmur, no JVD Respiratory/Chest: chest wall non-tender, lungs clear, normal breath sounds, no respiratory distress, no accessory muscle use Abdomen: no organomegaly, no mass, decreased bowel sounds, guarding, tender Extremities: normal range of motion, non-tender 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 S/P endoscopy 10/15/16=gastritis. (2) Diarrhea Assessment & Plan: Await stool culture results. (3) Nausea (4) Reflex sympathetic dystrophy (5) Hypothyroidism Assessment & Plan: Cont synthroid. (6) Fibromyalgia (7) Irritable bowel syndrome Assessment & Plan: see GI Note (8) Degenerative cervical disc Assessment/Plan Discharge planning: [facility] when bed available. JOSE BUTLER Oct 17, 2016 19:01
[2016-10-18] VITALS: BP 121/80
[2016-10-18] MEDS: D5 1/2NS 1,000 ML IV SCH ×2 (01:40→13:21)
[2016-10-18 04:00] VITALS: BP 108/60
[2016-10-18] MEDS: LORazepam 1mg tab ORAL PRN ×2 (06:01→12:44)
[2016-10-18 08:09] VITALS: BP 102/66
[2016-10-18] MEDS: Aspirin EC 81mg tab ORAL SCH (08:57)
[2016-10-18] MEDS: Heparin 5000 units/ml inj SUBQ SCH ×2 (08:58→21:00)
[2016-10-18] MEDS: Dyna-Hex 2% Top Sol 8oz TOPIC SCH (09:00)
[2016-10-18 11:26] VITALS: BP 112/69
[2016-10-18 15:55] VITALS: BP 104/63
--- NOTE | 2016-10-18 16:12 | Pulmonology Progress Note ---
Assessment/Plan Problems: (1) Ileus (2) Abdominal pain of unknown etiology (3) Nausea (4) Hypothyroidism (5) Fibromyalgia (6) Irritable bowel syndrome Assessment/Plan egd done advance diet symptomatic f/u GI evaluation appreciated, recommending dc check electrolytes dvt prophylaxis all meds and notes reviewed dc planning to SNIF Subjective ROS Limited/Unobtainable: No Constitutional: Reports: no symptoms HEENT: Repors: no symptoms Respiratory: Reports: no symptoms Allergies: Coded Allergies: ERYTHROMYCIN BASE (Unverified Allergy, Unknown, 09/17/14) Objective Last 24 Hour Vital Signs Date Time Temp Pulse Resp B/P Pulse Ox O2 Delivery O2 Flow Rate FiO2 10/18/16 15:55 97.3 69 18 104/63 100 Room Air 10/18/16 11:26 97.8 76 20 112/69 98 Room Air 10/18/16 08:09 97.9 79 19 102/66 99 Room Air 10/18/16 04:00 97.5 68 20 108/60 98 Room Air 10/18/16 00:00 97.6 79 20 121/80 98 Room Air 10/17/16 20:00 97.5 75 20 119/71 97 Room Air 10/17/16 16:27 97.3 75 18 106/60 99 Room Air Intake and Output 10/17/16 10/18/16 19:00 07:00 Intake Total 1000 ml Balance 1000 ml Intake Oral 700 ml IV Total 300 ml # Voids 3 3 # Bowel Movements 3 1 Objective General Appearance: WD/WN HEENT: normocephalic, atraumatic Respiratory/Chest: chest wall non-tender, lungs clear Breasts: no masses Cardiovascular: normal peripheral pulses, normal rate Abdomen: normal bowel sounds, soft, non tender Genitourinary: normal external genitalia Extremities: no cyanosis Skin: no rash 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 normal, normal mood/affect Lymphatic: no groin adenopathy General Appearance: WD/WN Current Medications Medications (Trade) Dose Ordered Sig/Joy Route PRN Reason Start Time Stop Time Status Last Admin Dose Admin Acetaminophen (Tylenol) 650 mg PRN PRN ORAL For Mild Pain 10/12/16 18:00 11/11/16 17:59 Acetaminophen (Tylenol) 650 mg Q4H PRN ORAL fever 10/11/16 22:15 11/10/16 22:14 Al Hydroxide/Mg Hydroxide (Mylanta II) 30 ml Q6H PRN ORAL dyspepsia 10/12/16 00:15 11/11/16 00:14 Aspirin (Ecotrin) 81 mg DAILY ORAL 10/12/16 09:00 11/11/16 08:59 10/18/16 08:57 Carisoprodol (Soma) 350 mg TIDPRN PRN ORAL MUSCLE SPASM 10/11/16 22:28 11/10/16 22:27 10/18/16 09:13 Chlorhexidine Gluconate (Stacey-Hex 2%) 1 applic DAILY TOPIC 10/13/16 18:00 11/12/16 17:59 10/15/16 09:05 Dextrose (Dextrose 50%) STAT PRN IV Hypoglycemia 10/12/16 18:15 11/11/16 18:14 Dextrose/Sodium Chloride (D5 0.45% NS) 1,000 ml @ 75 mls/hr [id number] IV 10/11/16 23:00 11/10/16 22:59 10/16/16 23:44 Diphenhydramine HCl (Benadryl) 25 mg Q6H PRN ORAL Itching/Pruritis 10/12/16 00:15 11/11/16 00:14 Diphenoxylate HCl/ Atropine (Lomotil) 2.5 mg Q4H PRN ORAL Diarrhea 10/17/16 11:45 11/16/16 11:44 Fluoxetine HCl (PROzac) 60 mg DAILY ORAL 10/12/16 09:00 11/11/16 08:59 10/18/16 08:57 Gabapentin (Neurontin) 600 mg Q8HR ORAL 10/12/16 06:00 11/11/16 05:59 10/18/16 13:26 Heparin Sodium (Porcine) (Heparin 5000 units/ml) 5,000 units EVERY 12 HOURS SUBQ 10/12/16 09:00 11/11/16 08:59 10/12/16 21:44 Loperamide HCl (Imodium) 2 mg Q4H PRN ORAL Diarrhea 10/13/16 12:30 11/12/16 12:29 Lorazepam (Ativan) 1 mg HSPRN PRN ORAL For Anxiety 10/11/16 22:30 10/18/16 22:29 10/16/16 05:40 Lorazepam (Ativan) 1 mg Q6H PRN ORAL For Anxiety 10/17/16 11:45 10/24/16 11:44 10/18/16 12:44 Morphine Sulfate (Morphine Sulfate) 2 mg Q4H PRN IVP severe Pain (Pain Scale 7-10) 10/11/16 22:15 10/18/16 22:14 10/17/16 08:37 Nitroglycerin (Ntg) 0.4 mg Q5M X 3 DOSES PRN SL Prn Chest Pain 10/11/16 22:15 11/10/16 22:14 Ondansetron HCl (Zofran) 4 mg Q6H PRN IVP Nausea & Vomiting 10/12/16 00:15 11/11/16 00:14 10/17/16 08:43 Pantoprazole (Protonix) 40 mg DAILY ORAL 10/17/16 09:00 11/16/16 08:59 10/18/16 08:57 Polyethylene Glycol (Miralax) 17 gm HSPRN PRN ORAL Constipation 10/12/16 18:15 11/11/16 18:14 Temazepam (Restoril) 15 mg HSPRN PRN ORAL Insomnia 10/11/16 22:31 10/18/16 22:30 Thyroid ([place] Thyroid) 30 mg ACBREAKFAST ORAL 10/12/16 06:30 11/11/16 06:29 10/18/16 06:01 MAUREEN ROJAS Oct 18, 2016 16:12
--- NOTE | 2016-10-18 17:56 | Internal Med Progress Note ---
Subjective Date of Service: Oct 18, 2016 Physician Name ButlerJose Attending Physician Balbir Truong MD Current Medications Medications (Trade) Dose Ordered Sig/Joy Route PRN Reason Start Time Stop Time Status Last Admin Dose Admin Acetaminophen (Tylenol) 650 mg PRN PRN ORAL For Mild Pain 10/12/16 18:00 11/11/16 17:59 Acetaminophen (Tylenol) 650 mg Q4H PRN ORAL fever 10/11/16 22:15 11/10/16 22:14 Al Hydroxide/Mg Hydroxide (Mylanta II) 30 ml Q6H PRN ORAL dyspepsia 10/12/16 00:15 11/11/16 00:14 Aspirin (Ecotrin) 81 mg DAILY ORAL 10/12/16 09:00 11/11/16 08:59 10/18/16 08:57 Carisoprodol (Soma) 350 mg TIDPRN PRN ORAL MUSCLE SPASM 10/11/16 22:28 11/10/16 22:27 10/18/16 09:13 Chlorhexidine Gluconate (Stacey-Hex 2%) 1 applic DAILY TOPIC 10/13/16 18:00 11/12/16 17:59 10/15/16 09:05 Dextrose (Dextrose 50%) STAT PRN IV Hypoglycemia 10/12/16 18:15 11/11/16 18:14 Dextrose/Sodium Chloride (D5 0.45% NS) 1,000 ml @ 75 mls/hr [id number] IV 10/11/16 23:00 11/10/16 22:59 10/16/16 23:44 Diphenhydramine HCl (Benadryl) 25 mg Q6H PRN ORAL Itching/Pruritis 10/12/16 00:15 11/11/16 00:14 Diphenoxylate HCl/ Atropine (Lomotil) 2.5 mg Q4H PRN ORAL Diarrhea 10/17/16 11:45 11/16/16 11:44 Fluoxetine HCl (PROzac) 60 mg DAILY ORAL 10/12/16 09:00 11/11/16 08:59 10/18/16 08:57 Gabapentin (Neurontin) 600 mg Q8HR ORAL 10/12/16 06:00 11/11/16 05:59 10/18/16 13:26 Heparin Sodium (Porcine) (Heparin 5000 units/ml) 5,000 units EVERY 12 HOURS SUBQ 10/12/16 09:00 11/11/16 08:59 10/12/16 21:44 Loperamide HCl (Imodium) 2 mg Q4H PRN ORAL Diarrhea 10/13/16 12:30 11/12/16 12:29 Lorazepam (Ativan) 1 mg HSPRN PRN ORAL For Anxiety 10/11/16 22:30 10/18/16 22:29 10/16/16 05:40 Lorazepam (Ativan) 1 mg Q6H PRN ORAL For Anxiety 10/17/16 11:45 10/24/16 11:44 10/18/16 12:44 Morphine Sulfate (Morphine Sulfate) 2 mg Q4H PRN IVP severe Pain (Pain Scale 7-10) 10/11/16 22:15 10/18/16 22:14 10/17/16 08:37 Nitroglycerin (Ntg) 0.4 mg Q5M X 3 DOSES PRN SL Prn Chest Pain 10/11/16 22:15 11/10/16 22:14 Ondansetron HCl (Zofran) 4 mg Q6H PRN IVP Nausea & Vomiting 10/12/16 00:15 11/11/16 00:14 10/17/16 08:43 Pantoprazole (Protonix) 40 mg DAILY ORAL 10/17/16 09:00 11/16/16 08:59 10/18/16 08:57 Polyethylene Glycol (Miralax) 17 gm HSPRN PRN ORAL Constipation 10/12/16 18:15 11/11/16 18:14 Temazepam (Restoril) 15 mg HSPRN PRN ORAL Insomnia 10/11/16 22:31 10/18/16 22:30 Thyroid ([place] Thyroid) 30 mg ACBREAKFAST ORAL 10/12/16 06:30 11/11/16 06:29 10/18/16 06:01 Allergies: Coded Allergies: ERYTHROMYCIN BASE (Unverified Allergy, Unknown, 09/17/14) ROS Limited/Unobtainable: No Constitutional: Reports: no symptoms HEENT: Reports: no symptoms Cardiovascular: Reports: no symptoms Respiratory: Reports: no symptoms Gastrointestinal/Abdominal: Reports: no symptoms Genitourinary: Reports: no symptoms Neurologic/Psychiatric: Reports: no symptoms Subjective 76 YO F admitted with epigastric pain and diarrhea. S/P endoscopy 10/15/16. Cover for Int Med-Dr Truong. Await Bed at [facility]. Patient filing appeal of discharge. Objective Last Vital Signs Date Time Temp Pulse Resp B/P Pulse Ox O2 Delivery O2 Flow Rate FiO2 10/18/16 15:55 97.3 69 18 104/63 100 Room Air Intake and Output 10/17/16 10/18/16 19:00 07:00 Intake Total 1000 ml Balance 1000 ml Intake Oral 700 ml IV Total 300 ml # Voids 3 3 # Bowel Movements 3 1 Objective General Appearance: WD/WN, no apparent distress, alert EENT: PERRL/EOMI, normal ENT inspection Neck: non-tender, normal alignment, supple, normal inspection Cardiovascular: normal peripheral pulses, normal rate, regular rhythm, no gallop/murmur, no JVD Respiratory/Chest: chest wall non-tender, lungs clear, normal breath sounds, no respiratory distress, no accessory muscle use Abdomen: no organomegaly, no mass, decreased bowel sounds, guarding, tender Extremities: normal range of motion, non-tender 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 S/P endoscopy 10/15/16=gastritis. (2) Diarrhea Assessment & Plan: Await stool culture results. (3) Nausea (4) Reflex sympathetic dystrophy (5) Hypothyroidism Assessment & Plan: Cont synthroid. (6) Fibromyalgia (7) Irritable bowel syndrome Assessment & Plan: see GI Note (8) Degenerative cervical disc Status: stable Assessment/Plan Discharge planning: [facility] when bed available. Patient filing appeal of discharge JOSE BUTLER Oct 18, 2016 17:56
[2016-10-18 20:00] VITALS: BP 122/71
[2016-10-19] VITALS: BP 124/76
[2016-10-19 04:00] VITALS: BP 110/67
[2016-10-19] MEDS: D5 1/2NS 1,000 ML IV SCH (04:20)
[2016-10-19 08:36] VITALS: BP 108/44
[2016-10-19] MEDS: Heparin 5000 units/ml inj SUBQ SCH ×2 (09:00→21:00)
[2016-10-19] MEDS: Aspirin EC 81mg tab ORAL SCH (09:23)
[2016-10-19] MEDS: LORazepam 1mg tab ORAL PRN (09:30)
--- NOTE | 2016-10-19 09:38 | Infectious Diseases Prog Note ---
Assessment/Plan Assessment/Plan A; IBS Fibromyalgia Diverticulosis Hypothyroidism P; observe off antibiotic Waiting for placement Subjective ROS Limited/Unobtainable: No Constitutional: Reports: no symptoms HEENT: Reports: no symptoms Cardiovascular: Reports: no symptoms Gastrointestinal/Abdominal: Reports: diarrhea, other - pasty stools Musculoskeletal: Reports: pain Allergies: Coded Allergies: ERYTHROMYCIN BASE (Unverified Allergy, Unknown, 09/17/14) Objective Vital Signs Last 24 Hour Vital Signs Date Time Temp Pulse Resp B/P Pulse Ox O2 Delivery O2 Flow Rate FiO2 10/19/16 08:36 96.9 77 19 108/44 97 Room Air 10/19/16 08:08 96.9 10/19/16 04:00 97.9 67 18 110/67 97 Room Air 10/19/16 00:00 97.3 72 18 124/76 99 Room Air 10/18/16 20:00 97.7 78 18 122/71 100 Room Air 10/18/16 15:55 97.3 69 18 104/63 100 Room Air 10/18/16 11:26 97.8 76 20 112/69 98 Room Air Height (Feet): 5 Height (Inches): 5.00 Weight (Pounds): 100 HEENT: other - uses neck collar Respiratory/Chest: lungs clear Cardiovascular: normal rate Abdomen: soft, non tender Extremities: no edema Neurologic/Psychiatric: alert, oriented x 3, responsive Current Medications Medications (Trade) Dose Ordered Sig/Joy Route PRN Reason Start Time Stop Time Status Last Admin Dose Admin Acetaminophen (Tylenol) 650 mg PRN PRN ORAL For Mild Pain 10/12/16 18:00 11/11/16 17:59 Acetaminophen (Tylenol) 650 mg Q4H PRN ORAL fever 10/11/16 22:15 11/10/16 22:14 Al Hydroxide/Mg Hydroxide (Mylanta II) 30 ml Q6H PRN ORAL dyspepsia 10/12/16 00:15 11/11/16 00:14 Aspirin (Ecotrin) 81 mg DAILY ORAL 10/12/16 09:00 11/11/16 08:59 10/19/16 09:23 Carisoprodol (Soma) 350 mg TIDPRN PRN ORAL MUSCLE SPASM 10/11/16 22:28 11/10/16 22:27 10/19/16 07:09 Dextrose (Dextrose 50%) STAT PRN IV Hypoglycemia 10/12/16 18:15 11/11/16 18:14 Dextrose/Sodium Chloride (D5 0.45% NS) 1,000 ml @ 75 mls/hr [id number] IV 10/11/16 23:00 11/10/16 22:59 10/16/16 23:44 Diphenhydramine HCl (Benadryl) 25 mg Q6H PRN ORAL Itching/Pruritis 10/12/16 00:15 11/11/16 00:14 Diphenoxylate HCl/ Atropine (Lomotil) 2.5 mg Q4H PRN ORAL Diarrhea 10/17/16 11:45 11/16/16 11:44 Fluoxetine HCl (PROzac) 60 mg DAILY ORAL 10/12/16 09:00 11/11/16 08:59 10/19/16 09:24 Gabapentin (Neurontin) 600 mg Q8HR ORAL 10/12/16 06:00 11/11/16 05:59 10/19/16 06:11 Heparin Sodium (Porcine) (Heparin 5000 units/ml) 5,000 units EVERY 12 HOURS SUBQ 10/12/16 09:00 11/11/16 08:59 10/12/16 21:44 Loperamide HCl (Imodium) 2 mg Q4H PRN ORAL Diarrhea 10/13/16 12:30 11/12/16 12:29 Lorazepam (Ativan) 1 mg Q6H PRN ORAL For Anxiety 10/17/16 11:45 10/24/16 11:44 10/19/16 09:30 Nitroglycerin (Ntg) 0.4 mg Q5M X 3 DOSES PRN SL Prn Chest Pain 10/11/16 22:15 11/10/16 22:14 Ondansetron HCl (Zofran) 4 mg Q6H PRN IVP Nausea & Vomiting 10/12/16 00:15 11/11/16 00:14 10/17/16 08:43 Pantoprazole (Protonix) 40 mg DAILY ORAL 10/17/16 09:00 11/16/16 08:59 10/19/16 09:23 Polyethylene Glycol (Miralax) 17 gm HSPRN PRN ORAL Constipation 10/12/16 18:15 11/11/16 18:14 Thyroid ([place] Thyroid) 30 mg ACBREAKFAST ORAL 10/12/16 06:30 11/11/16 06:29 10/19/16 06:11 GAIL DING Oct 19, 2016 09:38
[2016-10-19 12:06] VITALS: BP 104/60
--- NOTE | 2016-10-19 13:30 | Pulmonology Progress Note ---
Assessment/Plan Problems: (1) Ileus (2) Abdominal pain of unknown etiology (3) Nausea (4) Hypothyroidism (5) Fibromyalgia (6) Irritable bowel syndrome Assessment/Plan egd done advance diet symptomatic f/u GI evaluation appreciated, recommending dc check electrolytes dvt prophylaxis all meds and notes reviewed off abx check labs in am dc planning to SNIF Subjective ROS Limited/Unobtainable: No Constitutional: Reports: no symptoms HEENT: Repors: no symptoms Respiratory: Reports: no symptoms Allergies: Coded Allergies: ERYTHROMYCIN BASE (Unverified Allergy, Unknown, 09/17/14) Objective Last 24 Hour Vital Signs Date Time Temp Pulse Resp B/P Pulse Ox O2 Delivery O2 Flow Rate FiO2 10/19/16 12:52 97.7 10/19/16 12:06 97.7 83 19 104/60 97 Room Air 10/19/16 08:36 96.9 77 19 108/44 97 Room Air 10/19/16 08:08 96.9 10/19/16 04:00 97.9 67 18 110/67 97 Room Air 10/19/16 00:00 97.3 72 18 124/76 99 Room Air 10/18/16 20:00 97.7 78 18 122/71 100 Room Air 10/18/16 15:55 97.3 69 18 104/63 100 Room Air Intake and Output 10/18/16 10/19/16 19:00 07:00 Intake Total 800 ml 360 ml Balance 800 ml 360 ml Intake Oral 800 ml 360 ml # Voids 6 3 # Bowel Movements 2 Objective General Appearance: WD/WN HEENT: normocephalic, atraumatic Respiratory/Chest: chest wall non-tender, lungs clear Breasts: no masses Cardiovascular: normal peripheral pulses, normal rate Abdomen: normal bowel sounds, soft, non tender Genitourinary: normal external genitalia Extremities: no cyanosis Skin: no rash 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, normal mood/affect Lymphatic: no groin adenopathy Current Medications Medications (Trade) Dose Ordered Sig/Joy Route PRN Reason Start Time Stop Time Status Last Admin Dose Admin Acetaminophen (Tylenol) 650 mg PRN PRN ORAL For Mild Pain 10/12/16 18:00 11/11/16 17:59 10/19/16 11:53 Acetaminophen (Tylenol) 650 mg Q4H PRN ORAL fever 10/11/16 22:15 11/10/16 22:14 Al Hydroxide/Mg Hydroxide (Mylanta II) 30 ml Q6H PRN ORAL dyspepsia 10/12/16 00:15 11/11/16 00:14 Aspirin (Ecotrin) 81 mg DAILY ORAL 10/12/16 09:00 11/11/16 08:59 10/19/16 09:23 Carisoprodol (Soma) 350 mg TIDPRN PRN ORAL MUSCLE SPASM 10/11/16 22:28 11/10/16 22:27 10/19/16 07:09 Dextrose (Dextrose 50%) STAT PRN IV Hypoglycemia 10/12/16 18:15 11/11/16 18:14 Diphenhydramine HCl (Benadryl) 25 mg Q6H PRN ORAL Itching/Pruritis 10/12/16 00:15 11/11/16 00:14 Diphenoxylate HCl/ Atropine (Lomotil) 2.5 mg Q4H PRN ORAL Diarrhea 10/17/16 11:45 11/16/16 11:44 Fluoxetine HCl (PROzac) 60 mg DAILY ORAL 10/12/16 09:00 11/11/16 08:59 10/19/16 09:24 Gabapentin (Neurontin) 600 mg Q8HR ORAL 10/12/16 06:00 11/11/16 05:59 10/19/16 06:11 Heparin Sodium (Porcine) (Heparin 5000 units/ml) 5,000 units EVERY 12 HOURS SUBQ 10/12/16 09:00 11/11/16 08:59 10/12/16 21:44 Loperamide HCl (Imodium) 2 mg Q4H PRN ORAL Diarrhea 10/13/16 12:30 11/12/16 12:29 Lorazepam (Ativan) 1 mg Q6H PRN ORAL For Anxiety 10/17/16 11:45 10/24/16 11:44 10/19/16 09:30 Nitroglycerin (Ntg) 0.4 mg Q5M X 3 DOSES PRN SL Prn Chest Pain 10/11/16 22:15 11/10/16 22:14 Ondansetron HCl (Zofran) 4 mg Q6H PRN IVP Nausea & Vomiting 10/12/16 00:15 11/11/16 00:14 10/17/16 08:43 Pantoprazole (Protonix) 40 mg DAILY ORAL 10/17/16 09:00 11/16/16 08:59 10/19/16 09:23 Polyethylene Glycol (Miralax) 17 gm HSPRN PRN ORAL Constipation 10/12/16 18:15 11/11/16 18:14 Thyroid ([place] Thyroid) 30 mg ACBREAKFAST ORAL 10/12/16 06:30 11/11/16 06:29 10/19/16 06:11 MAUREEN ROJAS Oct 19, 2016 13:30
[2016-10-19 16:00] VITALS: BP 107/62
--- NOTE | 2016-10-19 16:29 | Internal Med Progress Note ---
Subjective Date of Service: Oct 19, 2016 Physician Name Jose Butler Attending Physician Balbir Truong MD Current Medications Medications (Trade) Dose Ordered Sig/Joy Route PRN Reason Start Time Stop Time Status Last Admin Dose Admin Acetaminophen (Tylenol) 650 mg PRN PRN ORAL For Mild Pain 10/12/16 18:00 11/11/16 17:59 10/19/16 11:53 Acetaminophen (Tylenol) 650 mg Q4H PRN ORAL fever 10/11/16 22:15 11/10/16 22:14 Al Hydroxide/Mg Hydroxide (Mylanta II) 30 ml Q6H PRN ORAL dyspepsia 10/12/16 00:15 11/11/16 00:14 Aspirin (Ecotrin) 81 mg DAILY ORAL 10/12/16 09:00 11/11/16 08:59 10/19/16 09:23 Carisoprodol (Soma) 350 mg TIDPRN PRN ORAL MUSCLE SPASM 10/11/16 22:28 11/10/16 22:27 10/19/16 07:09 Dextrose (Dextrose 50%) STAT PRN IV Hypoglycemia 10/12/16 18:15 11/11/16 18:14 Diphenhydramine HCl (Benadryl) 25 mg Q6H PRN ORAL Itching/Pruritis 10/12/16 00:15 11/11/16 00:14 Diphenoxylate HCl/ Atropine (Lomotil) 2.5 mg Q4H PRN ORAL Diarrhea 10/17/16 11:45 11/16/16 11:44 Fluoxetine HCl (PROzac) 60 mg DAILY ORAL 10/12/16 09:00 11/11/16 08:59 10/19/16 09:24 Gabapentin (Neurontin) 600 mg Q8HR ORAL 10/12/16 06:00 11/11/16 05:59 10/19/16 06:11 Heparin Sodium (Porcine) (Heparin 5000 units/ml) 5,000 units EVERY 12 HOURS SUBQ 10/12/16 09:00 11/11/16 08:59 10/12/16 21:44 Loperamide HCl (Imodium) 2 mg Q4H PRN ORAL Diarrhea 10/13/16 12:30 11/12/16 12:29 Lorazepam (Ativan) 1 mg Q6H PRN ORAL For Anxiety 10/17/16 11:45 10/24/16 11:44 10/19/16 09:30 Nitroglycerin (Ntg) 0.4 mg Q5M X 3 DOSES PRN SL Prn Chest Pain 10/11/16 22:15 11/10/16 22:14 Ondansetron HCl (Zofran) 4 mg Q6H PRN IVP Nausea & Vomiting 10/12/16 00:15 11/11/16 00:14 10/17/16 08:43 Pantoprazole (Protonix) 40 mg DAILY ORAL 10/17/16 09:00 11/16/16 08:59 10/19/16 09:23 Polyethylene Glycol (Miralax) 17 gm HSPRN PRN ORAL Constipation 10/12/16 18:15 11/11/16 18:14 Thyroid ([place] Thyroid) 30 mg ACBREAKFAST ORAL 10/12/16 06:30 11/11/16 06:29 10/19/16 06:11 Allergies: Coded Allergies: ERYTHROMYCIN BASE (Unverified Allergy, Unknown, 09/17/14) Subjective 76 YO F admitted with epigastric pain and diarrhea. S/P endoscopy 10/15/16. Cover for Int Med-Dr Truong. Await Bed at [facility]. Patient filing appeal of discharge. Objective Last Vital Signs Date Time Temp Pulse Resp B/P Pulse Ox O2 Delivery O2 Flow Rate FiO2 10/19/16 16:00 97.5 90 20 107/62 98 Room Air Intake and Output 10/18/16 10/19/16 19:00 07:00 Intake Total 800 ml 360 ml Balance 800 ml 360 ml Intake Oral 800 ml 360 ml # Voids 6 3 # Bowel Movements 2 Objective General Appearance: WD/WN, no apparent distress, alert EENT: PERRL/EOMI, normal ENT inspection Neck: non-tender, normal alignment, supple, normal inspection Cardiovascular: normal peripheral pulses, normal rate, regular rhythm, no gallop/murmur, no JVD Respiratory/Chest: chest wall non-tender, lungs clear, normal breath sounds, no respiratory distress, no accessory muscle use Abdomen: no organomegaly, no mass, decreased bowel sounds, guarding, tender Extremities: normal range of motion, non-tender 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 S/P endoscopy 10/15/16=gastritis. (2) Diarrhea Assessment & Plan: Await stool culture results. (3) Nausea (4) Reflex sympathetic dystrophy (5) Hypothyroidism Assessment & Plan: Cont synthroid. (6) Fibromyalgia (7) Irritable bowel syndrome Assessment & Plan: see GI Note (8) Degenerative cervical disc Assessment/Plan Discharge planning: [facility] when bed available. Patient filing appeal of discharge JOSE BUTLER Oct 19, 2016 16:29
[2016-10-19 20:00] VITALS: BP 112/66
[2016-10-20] VITALS: BP 112/78
[2016-10-20 04:00] VITALS: BP 116/70
[2016-10-20 08:15] VITALS: BP 130/86
[2016-10-20] MEDS: Heparin 5000 units/ml inj SUBQ SCH (09:00)
[2016-10-20] MEDS: LORazepam 1mg tab ORAL PRN (09:07)
[2016-10-20] MEDS: Aspirin EC 81mg tab ORAL SCH (09:07)
--- NOTE | 2016-10-20 10:44 | GI Progress Note ---
Assessment/Plan Problems: (1) Nausea ICD Codes: R11.0 - Nausea SNOMED: 024106246 (2) Epigastric abdominal pain ICD Codes: R10.13 - Epigastric pain SNOMED: 18505988 (3) Diarrhea ICD Codes: R19.7 - Diarrhea, unspecified SNOMED: 36411429 (4) Irritable bowel syndrome ICD Codes: K58.9 - Irritable bowel syndrome without diarrhea SNOMED: 14984876 (5) Ileus ICD Codes: K56.7 - Ileus, unspecified SNOMED: 256634177 (6) Abdominal pain ICD Codes: R10.9 - Unspecified abdominal pain SNOMED: 45936220 Qualifiers: Qualified Codes: R10.9 - Unspecified abdominal pain (7) Abdominal pain of unknown etiology ICD Codes: R10.9 - Unspecified abdominal pain SNOMED: 587596440 Status: stable, unchanged Status Narrative Discussed with Dr. Green. Assessment/Plan S/P recent EGD/colonoscopy @ [facility] 1. Weight loss. 2. Diverticulosis. 3. Gastritis. 4. Gastric polyp. 5. Colonic polyp. 6. Fibromyalgia. 7. IBS. 8. Uterine fibroids. 9. Hypothyroidism S/P EUS SUMMARY FINDINGS: 1. Gastritis, status post biopsy. 2. Normal pancreatic parenchyma with pancreatic duct and common bile duct. 3. Limited examination of the intrahepatic duct. MRCP reviewed >> Some prominence of the biliary ducts. No evidence of choledocholithiasis. CT AP reviewed >> Prominence of the wall of the pyloric channel, not evaluated well on the current CT examination. cdiff negative stool culture negative lipase unremarkable CA19-9 mild elevation RECOMMENDATIONS: ok for DC per GI standpoint Imodium prn, consider Lomotil if diarrhea persists >> refuses to take medication resume diet pain mgmt fu stool fat Subjective Subjective c/o of diarrhea ambulating refuses to take take Imodium Objective Last 24 Hour Vital Signs Date Time Temp Pulse Resp B/P Pulse Ox O2 Delivery O2 Flow Rate FiO2 10/20/16 10:06 97.2 10/20/16 08:15 97.2 74 22 130/86 99 Room Air 10/20/16 04:00 97.0 70 20 116/70 96 Room Air 10/20/16 00:00 97.0 74 20 112/78 95 Room Air 10/19/16 20:00 97.7 77 20 112/66 98 Room Air 10/19/16 16:00 97.5 90 20 107/62 98 Room Air 10/19/16 12:06 97.7 83 19 104/60 97 Room Air Intake and Output 10/19/16 10/20/16 19:00 07:00 Intake Total 1080 ml Balance 1080 ml Intake Oral 1080 ml # Voids 1 3 # Bowel Movements 1 Height (Feet): 5 Height (Inches): 5.00 Weight (Pounds): 100 General Appearance: no apparent distress, alert, thin Cardiovascular: normal rate Respiratory/Chest: normal breath sounds, no respiratory distress Abdominal Exam: normal bowel sounds, non tender, soft Extremities: normal range of motion Felicita Melton N.P. Oct 20, 2016 10:44
[2016-10-20 12:15] VITALS: BP 98/64
--- NOTE | 2016-10-20 15:08 | Pulmonology Progress Note ---
Assessment/Plan Problems: (1) Ileus (2) Abdominal pain of unknown etiology (3) Nausea (4) Hypothyroidism (5) Fibromyalgia (6) Irritable bowel syndrome Assessment/Plan symptomatic f/u GI evaluation appreciated, recommending dc check electrolytes dvt prophylaxis all meds and notes reviewed off abx check labs in am dc planning to SNIF Subjective ROS Limited/Unobtainable: No Allergies: Coded Allergies: ERYTHROMYCIN BASE (Unverified Allergy, Unknown, 09/17/14) Objective Last 24 Hour Vital Signs Date Time Temp Pulse Resp B/P Pulse Ox O2 Delivery O2 Flow Rate FiO2 10/20/16 13:40 98.4 10/20/16 12:15 98.4 69 20 98/64 97 Room Air 10/20/16 10:06 97.2 10/20/16 08:15 97.2 74 22 130/86 99 Room Air 10/20/16 04:00 97.0 70 20 116/70 96 Room Air 10/20/16 00:00 97.0 74 20 112/78 95 Room Air 10/19/16 20:00 97.7 77 20 112/66 98 Room Air 10/19/16 16:00 97.5 90 20 107/62 98 Room Air Intake and Output 10/19/16 10/20/16 19:00 07:00 Intake Total 1080 ml Balance 1080 ml Intake Oral 1080 ml # Voids 1 3 # Bowel Movements 1 Objective General Appearance: WD/WN HEENT: normocephalic, atraumatic Respiratory/Chest: chest wall non-tender, lungs clear Breasts: no masses Cardiovascular: normal peripheral pulses, normal rate Abdomen: normal bowel sounds, soft, non tender Genitourinary: normal external genitalia Extremities: no cyanosis Skin: no rash 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, normal mood/affect Lymphatic: no groin adenopathy Current Medications Medications (Trade) Dose Ordered Sig/Joy Route PRN Reason Start Time Stop Time Status Last Admin Dose Admin Acetaminophen (Tylenol) 650 mg PRN PRN ORAL For Mild Pain 10/12/16 18:00 11/11/16 17:59 10/20/16 09:07 Acetaminophen (Tylenol) 650 mg Q4H PRN ORAL fever 10/11/16 22:15 11/10/16 22:14 Al Hydroxide/Mg Hydroxide (Mylanta II) 30 ml Q6H PRN ORAL dyspepsia 10/12/16 00:15 11/11/16 00:14 Aspirin (Ecotrin) 81 mg DAILY ORAL 10/12/16 09:00 11/11/16 08:59 10/20/16 09:07 Carisoprodol (Soma) 350 mg TIDPRN PRN ORAL MUSCLE SPASM 10/11/16 22:28 11/10/16 22:27 10/20/16 12:41 Dextrose (Dextrose 50%) STAT PRN IV Hypoglycemia 10/12/16 18:15 11/11/16 18:14 Diphenhydramine HCl (Benadryl) 25 mg Q6H PRN ORAL Itching/Pruritis 10/12/16 00:15 11/11/16 00:14 10/20/16 00:00 Diphenoxylate HCl/ Atropine (Lomotil) 2.5 mg Q4H PRN ORAL Diarrhea 10/17/16 11:45 11/16/16 11:44 Fluoxetine HCl (PROzac) 60 mg DAILY ORAL 10/12/16 09:00 11/11/16 08:59 10/20/16 09:07 Gabapentin (Neurontin) 600 mg Q8HR ORAL 10/12/16 06:00 11/11/16 05:59 10/20/16 13:56 Heparin Sodium (Porcine) (Heparin 5000 units/ml) 5,000 units EVERY 12 HOURS SUBQ 10/12/16 09:00 11/11/16 08:59 10/12/16 21:44 Loperamide HCl (Imodium) 2 mg Q4H PRN ORAL Diarrhea 10/13/16 12:30 11/12/16 12:29 Lorazepam (Ativan) 1 mg Q6H PRN ORAL For Anxiety 10/17/16 11:45 10/24/16 11:44 10/20/16 09:07 Nitroglycerin (Ntg) 0.4 mg Q5M X 3 DOSES PRN SL Prn Chest Pain 10/11/16 22:15 11/10/16 22:14 Ondansetron HCl (Zofran) 4 mg Q6H PRN IVP Nausea & Vomiting 10/12/16 00:15 11/11/16 00:14 10/17/16 08:43 Pantoprazole (Protonix) 40 mg DAILY ORAL 10/17/16 09:00 11/16/16 08:59 10/20/16 09:07 Polyethylene Glycol (Miralax) 17 gm HSPRN PRN ORAL Constipation 10/12/16 18:15 11/11/16 18:14 Thyroid ([place] Thyroid) 30 mg ACBREAKFAST ORAL 10/12/16 06:30 11/11/16 06:29 10/20/16 05:46 MAUREEN ROJAS Oct 20, 2016 15:08
[2016-10-20 16:13] VITALS: BP 118/70
--- NOTE | 2016-10-20 19:07 | Internal Med Progress Note ---
Subjective Date of Service: Oct 20, 2016 Physician Name Butler,Jose Attending Physician Balbir Truong MD Current Medications Medications (Trade) Dose Ordered Sig/Joy Route PRN Reason Start Time Stop Time Status Last Admin Dose Admin Acetaminophen (Tylenol) 650 mg Q6H PRN ORAL Mild Pain/Temp > 100.5 10/20/16 18:00 11/19/16 17:59 10/20/16 17:56 Al Hydroxide/Mg Hydroxide (Mylanta II) 30 ml Q6H PRN ORAL dyspepsia 10/12/16 00:15 11/11/16 00:14 Aspirin (Ecotrin) 81 mg DAILY ORAL 10/12/16 09:00 11/11/16 08:59 10/20/16 09:07 Carisoprodol (Soma) 350 mg TIDPRN PRN ORAL MUSCLE SPASM 10/11/16 22:28 11/10/16 22:27 10/20/16 12:41 Dextrose (Dextrose 50%) STAT PRN IV Hypoglycemia 10/12/16 18:15 11/11/16 18:14 Diphenhydramine HCl (Benadryl) 25 mg Q6H PRN ORAL Itching/Pruritis 10/12/16 00:15 11/11/16 00:14 10/20/16 00:00 Diphenoxylate HCl/ Atropine (Lomotil) 2.5 mg Q4H PRN ORAL Diarrhea 10/17/16 11:45 11/16/16 11:44 Fluoxetine HCl (PROzac) 60 mg DAILY ORAL 10/12/16 09:00 11/11/16 08:59 10/20/16 09:07 Gabapentin (Neurontin) 600 mg Q8HR ORAL 10/12/16 06:00 11/11/16 05:59 10/20/16 13:56 Loperamide HCl (Imodium) 2 mg Q4H PRN ORAL Diarrhea 10/13/16 12:30 11/12/16 12:29 Lorazepam (Ativan) 1 mg Q6H PRN ORAL For Anxiety 10/17/16 11:45 10/24/16 11:44 10/20/16 09:07 Nitroglycerin (Ntg) 0.4 mg Q5M X 3 DOSES PRN SL Prn Chest Pain 10/11/16 22:15 11/10/16 22:14 Ondansetron HCl (Zofran) 4 mg Q6H PRN IVP Nausea & Vomiting 10/12/16 00:15 11/11/16 00:14 10/17/16 08:43 Pantoprazole (Protonix) 40 mg DAILY ORAL 10/17/16 09:00 11/16/16 08:59 10/20/16 09:07 Polyethylene Glycol (Miralax) 17 gm HSPRN PRN ORAL Constipation 10/12/16 18:15 11/11/16 18:14 Thyroid ([place] Thyroid) 30 mg ACBREAKFAST ORAL 10/12/16 06:30 11/11/16 06:29 10/20/16 05:46 Allergies: Coded Allergies: ERYTHROMYCIN BASE (Unverified Allergy, Unknown, 09/17/14) ROS Limited/Unobtainable: No Constitutional: Reports: no symptoms HEENT: Reports: no symptoms Cardiovascular: Reports: no symptoms Respiratory: Reports: no symptoms Gastrointestinal/Abdominal: Reports: no symptoms Genitourinary: Reports: no symptoms Neurologic/Psychiatric: Reports: no symptoms Subjective 76 YO F admitted with epigastric pain and diarrhea. S/P endoscopy 10/15/16. Cover for Int Med-Dr Truong. Await Bed at care home fac.. Patient filing appeal of discharge. Objective Last Vital Signs Date Time Temp Pulse Resp B/P Pulse Ox O2 Delivery O2 Flow Rate FiO2 10/20/16 16:13 98.8 75 20 118/70 99 Room Air Intake and Output 10/19/16 10/20/16 19:00 07:00 Intake Total 1080 ml Balance 1080 ml Intake Oral 1080 ml # Voids 1 3 # Bowel Movements 1 Objective General Appearance: WD/WN, no apparent distress, alert EENT: PERRL/EOMI, normal ENT inspection Neck: non-tender, normal alignment, supple, normal inspection Cardiovascular: normal peripheral pulses, normal rate, regular rhythm, no gallop/murmur, no JVD Respiratory/Chest: chest wall non-tender, lungs clear, normal breath sounds, no respiratory distress, no accessory muscle use Abdomen: no organomegaly, no mass, decreased bowel sounds, guarding, tender Extremities: normal range of motion, non-tender 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 S/P endoscopy 10/15/16=gastritis. (2) Diarrhea Assessment & Plan: Await stool culture results. (3) Nausea (4) Reflex sympathetic dystrophy (5) Hypothyroidism Assessment & Plan: Cont synthroid. (6) Fibromyalgia (7) Irritable bowel syndrome Assessment & Plan: see GI Note (8) Degenerative cervical disc Status: stable Assessment/Plan Discharge planning: SNF when bed available; see soc work note concerning placement of patient and service dog.. Patient filing appeal of discharge JOSE BUTLER Oct 20, 2016 19:07
[2016-10-20 20:00] VITALS: BP 110/75
[2016-10-21] VITALS: BP 115/69
[2016-10-21 04:00] VITALS: BP 108/62
[2016-10-21] MEDS: Aspirin EC 81mg tab ORAL SCH (08:20)
[2016-10-21] MEDS: LORazepam 1mg tab ORAL PRN (08:21)
[2016-10-21 08:59] VITALS: BP 107/76
--- NOTE | 2016-10-21 12:48 | GI Progress Note ---
Assessment/Plan Problems: (1) Nausea ICD Codes: R11.0 - Nausea SNOMED: 267172796 (2) Epigastric abdominal pain ICD Codes: R10.13 - Epigastric pain SNOMED: 39543508 (3) Diarrhea ICD Codes: R19.7 - Diarrhea, unspecified SNOMED: 49745536 (4) Irritable bowel syndrome ICD Codes: K58.9 - Irritable bowel syndrome without diarrhea SNOMED: 77790792 (5) Ileus ICD Codes: K56.7 - Ileus, unspecified SNOMED: 470580719 (6) Abdominal pain ICD Codes: R10.9 - Unspecified abdominal pain SNOMED: 50043125 Qualifiers: Qualified Codes: R10.9 - Unspecified abdominal pain (7) Abdominal pain of unknown etiology ICD Codes: R10.9 - Unspecified abdominal pain SNOMED: 400068314 Status: stable Status Narrative Discussed with Dr. Green. Assessment/Plan S/P recent EGD/colonoscopy @ [facility] 1. Weight loss. 2. Diverticulosis. 3. Gastritis. 4. Gastric polyp. 5. Colonic polyp. 6. Fibromyalgia. 7. IBS. 8. Uterine fibroids. 9. Hypothyroidism S/P EUS SUMMARY FINDINGS: 1. Gastritis, status post biopsy. 2. Normal pancreatic parenchyma with pancreatic duct and common bile duct. 3. Limited examination of the intrahepatic duct. MRCP reviewed >> Some prominence of the biliary ducts. No evidence of choledocholithiasis. CT AP reviewed >> Prominence of the wall of the pyloric channel, not evaluated well on the current CT examination. cdiff negative stool culture negative lipase unremarkable CA19-9 mild elevation RECOMMENDATIONS: ok for DC per GI standpoint Imodium prn, consider Lomotil if diarrhea persists >> refuses to take medication simethicone prn colace TID for constipation resume diet pain mgmt fu stool fat Subjective Subjective diarrhea resolved c/o of constipation Objective Last 24 Hour Vital Signs Date Time Temp Pulse Resp B/P Pulse Ox O2 Delivery O2 Flow Rate FiO2 10/21/16 08:59 97.0 93 20 107/76 95 Room Air 10/21/16 04:00 97.2 66 20 108/62 97 Room Air 10/21/16 00:00 97.2 81 20 115/69 98 Room Air 10/20/16 20:00 97.4 73 20 110/75 98 Room Air 10/20/16 18:55 98.8 10/20/16 16:13 98.8 75 20 118/70 99 Room Air 10/20/16 13:40 98.4 Intake and Output 10/20/16 10/21/16 19:00 07:00 Intake Total 840 ml Balance 840 ml Intake Oral 840 ml # Voids 2 Height (Feet): 5 Height (Inches): 5.00 Weight (Pounds): 100 General Appearance: no apparent distress, alert, thin Cardiovascular: normal rate Respiratory/Chest: normal breath sounds, no respiratory distress Abdominal Exam: normal bowel sounds, non tender, soft Felicita Melton N.P. Oct 21, 2016 12:48
[2016-10-21 12:55] VITALS: BP 110/72
--- NOTE | 2016-10-21 16:12 | Pulmonology Progress Note ---
Assessment/Plan Problems: (1) Ileus (2) Abdominal pain of unknown etiology (3) Nausea (4) Hypothyroidism (5) Fibromyalgia (6) Irritable bowel syndrome Assessment/Plan symptomatic f/u GI evaluation appreciated, recommending dc check electrolytes dvt prophylaxis all meds and notes reviewed off abx check labs in am dc planning to SNIF Subjective ROS Limited/Unobtainable: No Constitutional: Reports: no symptoms HEENT: Repors: no symptoms Respiratory: Reports: no symptoms Allergies: Coded Allergies: ERYTHROMYCIN BASE (Unverified Allergy, Unknown, 09/17/14) Objective Last 24 Hour Vital Signs Date Time Temp Pulse Resp B/P Pulse Ox O2 Delivery O2 Flow Rate FiO2 10/21/16 12:55 97.0 90 20 110/72 95 Room Air 10/21/16 08:59 97.0 93 20 107/76 95 Room Air 10/21/16 04:00 97.2 66 20 108/62 97 Room Air 10/21/16 00:00 97.2 81 20 115/69 98 Room Air 10/20/16 20:00 97.4 73 20 110/75 98 Room Air 10/20/16 18:55 98.8 10/20/16 16:13 98.8 75 20 118/70 99 Room Air Intake and Output 10/20/16 10/21/16 19:00 07:00 Intake Total 840 ml Balance 840 ml Intake Oral 840 ml # Voids 2 Objective General Appearance: WD/WN HEENT: normocephalic, atraumatic Respiratory/Chest: chest wall non-tender, lungs clear Breasts: no masses Cardiovascular: normal peripheral pulses, normal rate Abdomen: normal bowel sounds, soft, non tender Genitourinary: normal external genitalia Extremities: no cyanosis Skin: no rash 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, 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 mood/affect Lymphatic: no groin adenopathy Current Medications Medications (Trade) Dose Ordered Sig/Joy Route PRN Reason Start Time Stop Time Status Last Admin Dose Admin Acetaminophen (Tylenol) 650 mg Q6H PRN ORAL Mild Pain/Temp > 100.5 10/20/16 18:00 11/19/16 17:59 10/20/16 17:56 Al Hydroxide/Mg Hydroxide (Mylanta II) 30 ml Q6H PRN ORAL dyspepsia 10/12/16 00:15 11/11/16 00:14 Aspirin (Ecotrin) 81 mg DAILY ORAL 10/12/16 09:00 11/11/16 08:59 10/21/16 08:20 Carisoprodol (Soma) 350 mg TIDPRN PRN ORAL MUSCLE SPASM 10/11/16 22:28 11/10/16 22:27 10/20/16 21:20 Dextrose (Dextrose 50%) STAT PRN IV Hypoglycemia 10/12/16 18:15 11/11/16 18:14 Diphenhydramine HCl (Benadryl) 25 mg Q6H PRN ORAL Itching/Pruritis 10/12/16 00:15 11/11/16 00:14 10/20/16 00:00 Diphenoxylate HCl/ Atropine (Lomotil) 2.5 mg Q4H PRN ORAL Diarrhea 10/17/16 11:45 11/16/16 11:44 Fluoxetine HCl (PROzac) 60 mg DAILY ORAL 10/12/16 09:00 11/11/16 08:59 10/21/16 08:20 Gabapentin (Neurontin) 600 mg Q8HR ORAL 10/12/16 06:00 11/11/16 05:59 10/21/16 06:35 Loperamide HCl (Imodium) 2 mg Q4H PRN ORAL Diarrhea 10/13/16 12:30 11/12/16 12:29 Lorazepam (Ativan) 1 mg Q6H PRN ORAL For Anxiety 10/17/16 11:45 10/24/16 11:44 10/21/16 08:21 Nitroglycerin (Ntg) 0.4 mg Q5M X 3 DOSES PRN SL Prn Chest Pain 10/11/16 22:15 11/10/16 22:14 Ondansetron HCl (Zofran) 4 mg Q6H PRN IVP Nausea & Vomiting 10/12/16 00:15 11/11/16 00:14 10/17/16 08:43 Pantoprazole (Protonix) 40 mg DAILY ORAL 10/17/16 09:00 11/16/16 08:59 10/21/16 08:21 Polyethylene Glycol (Miralax) 17 gm HSPRN PRN ORAL Constipation 10/12/16 18:15 11/11/16 18:14 Thyroid ([place] Thyroid) 30 mg ACBREAKFAST ORAL 10/12/16 06:30 11/11/16 06:29 10/21/16 06:35 MAUREEN ROJAS Oct 21, 2016 16:12
--- NOTE | 2016-10-23 17:58 | Discharge Summary ---
Discharge Summary Hospital Course Date of Admission Oct 10, 2016 at 15:29 Date of Discharge Oct 21, 2016 at 16:14 Admitting Diagnosis ABDOMINAL PAIN R/O SMALL BOWEL OBST HPI Karine Campos is a 76 year old female who was admitted on Oct 10, 2016 at 15: 29 for Abdominal Pain Rule Out Small Bowel Obstruction Hospital Course [id number] Discharge Discharge Disposition Patient was discharged to snf Discharge Diagnoses: Lia Vallejo NP Oct 23, 2016 17:58
--- NOTE | 2016-10-24 01:47 | Discharge Summary 2 SIG ---
DATE OF ADMISSION: 10/10/2016 DATE OF DISCHARGE: 10/21/2016 CONSULTANTS: 1. Aramis Green M.D. 2. Sangeetha Jones M.D. 3. David Dixon M.D. 4. Nasir Downey M.D. BRIEF HOSPITAL COURSE: The patient is a 76-year-old female who presented to ED complaining of abdominal pain and diarrhea started four days prior to admission. The patient had epigastric pain that radiated to bilateral lower quadrants. She also had diarrhea, which was watery in nature and had several BMs during the day accompanied with nausea, however, no vomiting. She also stated that she had lost 20 pounds over the last seven months. She presented to [facility] and on evaluation, abdominal x-ray showed left upper quadrant prominent small bowel loops and noted to have mild ileus on imaging. She had a prior CAT scan imaging done in 2014 that showed umbilical hernia as well as bilateral inguinal hernia. She was then admitted to telemetry for evaluation of epigastric pain with diarrhea and nausea. She was placed on NPO and was given IV hydration. Surgery evaluation was done and on examination had a partially reducible umbilical hernia. Inguinal exam showed small reducible inguinal hernias bilaterally. There were no femoral hernia. No acute surgical intervention was needed. She was started empirically on IV Zosyn. Zosyn was discontinued by Infectious Disease specialist and was given intravenous ciprofloxacin and Flagyl. There was CT scan findings of a mildly dilated right intrahepatic duct done at [facility] and was supposed to get followups with motility center, but never went due to dilated right intrahepatic duct. MRCP was done and showed prominent biliary duct with no evidence of choledocholithiasis. There was no evidence of choledocholithiasis. Stool C. difficile was negative. Stool culture was likewise negative. On 10/15/2016, she underwent upper endoscopy with biopsy and endoscopic ultrasound by Dr. Green, findings showed gastritis with normal pancreatic parenchyma with pancreatic duct and common bile duct. There was little limited examination of intrahepatic duct. She was taken off antibiotics and was observed off antibiotic. Diet was advanced. The patient was referred to a detention. The patient was discharged, however, the patient appealed discharge. Appeal was denied and the patient was eventually discharged to [facility] and has agreed to a dog and cat food cook that has been arranged by [facility] linux network administrator. FINAL DIAGNOSES: 1. Acute abdominal ileus, resolved. 2. Mild dehydration. 3. Reducible bilateral inguinal hernia. 4. Reducible umbilical hernia. 5. Fibromyalgia. 6. Hypothyroidism. 7. Degenerative cervical disk. 8. Reflex sympathetic dystrophy. 9. Gastritis. 10. Irritable bowel syndrome. 11. Uncomplicated urinary tract infection. 12. Possible diverticulitis. DISPOSITION: The patient was discharged to SNF. DISCHARGE MEDICATIONS: Refer to medication list. Sukhdev Edwards M.D. I have been assigned to dictate discharge summary on this account and I was not involved in the patient's management. Lia Vallejo N.P. DR: PARVEEN JOB#: [id number] CC:
== END 2016-10-21 16:14 | DRG 389 ==
LOC: EMR 14:20 → EDBEDREQ 15:13 → 2E 15:29 → EDBEDREQ 16:33 → 2E 20:21 → 4W 10-11 23:33
PROC: BF47ZZZ Ultrasonography of Pancreas (ICD-10-PCS; principal; 2016-10-15 13:27)
PROC: 0DB78ZX Excision of Stomach, Pylorus, Via Natural or Artificial Opening Endoscopic, Diagnostic (ICD-10-PCS; principal; 2016-10-15 13:27)
PROC: BF40ZZZ Ultrasonography of Bile Ducts (ICD-10-PCS; principal; 2016-10-15 13:27)
DX: K56.7 Ileus, unspecified (principal); G90.50 Complex regional pain syndrome I, unspecified; E86.0 Dehydration; N39.0 Urinary tract infection, site not specified; Z68.1 Body mass index [BMI] 19.9 or less, adult; K57.92 Diverticulitis of intestine, part unspecified, without perforation or abscess without bleeding; K40.20 Bilateral inguinal hernia, without obstruction or gangrene, not specified as recurrent; K42.9 Umbilical hernia without obstruction or gangrene; I25.2 Old myocardial infarction; M79.7 Fibromyalgia; E03.9 Hypothyroidism, unspecified; K29.70 Gastritis, unspecified, without bleeding; Z88.1 Allergy status to other antibiotic agents; M50.30 Other cervical disc degeneration, unspecified cervical region; I25.10 Atherosclerotic heart disease of native coronary artery without angina pectoris; K57.90 Diverticulosis of intestine, part unspecified, without perforation or abscess without bleeding; K31.7 Polyp of stomach and duodenum; K63.5 Polyp of colon; K58.9 Irritable bowel syndrome, unspecified; R19.7 Diarrhea, unspecified; R11.0 Nausea; R63.4 Abnormal weight loss
CPT/HCPCS: 36415; 74000; 74177; 74181; 80048; 80053; 81003; 82150; 82378; 82705; 83615; 83690; 84439; 84443; 84480; 84481; 85025; 85610; 85730; 86301; 86677; 87045; 87086; 87324; 94003; 94150; J2405; J7620